=== PATIENT | female | born 1950 | race Caucasian/White ===

== ENCOUNTER 2020-02-21 15:57 | Emergency (ER) | payer MEDICARE, SELFPAY ==
[2020-02-21] VITALS (7 sets, daily range): BP systolic 145–263; BP diastolic 79–111; PULSE 59–83; RESP 16–96; TEMP 37.1; O2SAT 93–98
--- NOTE | ~2020-02-21 | CT_ITS ---
EXAMINATION: CTA chest abdomen pelvis DATE: 02/21/2020 19:04 INDICATION: Severe hypertension today. Back injury yesterday. Aneurysm, dissection. TECHNIQUE: Computed tomography (CT) of the chest, abdomen, and pelvis was performed with 100 cc Omnip aque 350 intravenous contrast. Automated exposure control and iterative reconstruction technique were employed. Exam dose: 1438.52 mGy-cm total exam DLP. COMPARISON: 02/21/2020 portable AP chest FINDINGS: CHEST CT: Normal heart size. There is trace pericardial fluid. No thoracic aortic aneurysm or dissection. No hilar or mediastinal mass lesion or lymphadenopathy. No pulmonary infiltrate or consolidation or pulmonary mass lesion. Small sliding hiatal hernia. ABDOMEN/PELVIS CT: The liver, gallbladder, bile ducts, spleen, pancreas and pancreatic duct as well as adrenal glands ap pear unremarkable. No suspicious renal mass lesion. No urinary tract calculus or hydroureteronephrosis. There is atherosclerotic calcification of the abdominal aorta and iliac arteries but no aneurysm or d issection. No intraperitoneal or retroperitoneal or pelvic mass lesion or adenopathy or ascites. The uterus, adnexal areas and urinary bladder are unremarkable. No bowel obstruction, bowel wall thickening, pneumatosis or intraperitoneal free air. Normal appendix . There is a 12 mm osteosclerotic lesion of T10 vertebral body. There are several osteosclerotic lesion s of the right iliac bone, several small sclerotic lesions in the region of the left acetabulum, a sc lerotic lesion of the right side of the lower sacrum. There are sclerotic lesions of the proximal rig ht femur., A sclerotic left eighth rib lesion. There is a lateral sclerotic right seventh rib lesion. Osteosclerotic metastatic disease cannot be excluded. Recommend clinical correlation and perhaps radi onuclide bone scan as clinically appropriate. Degenerative disc disease at L5-S1. Bilateral hip osteoarthritis. IMPRESSION: No thoracic or abdominal aortic aneurysm or dissection Small sliding hiatal hernia Scattered osseous sclerotic lesions of these may be bone islands; osseous chronic metastatic disease is not excluded. Recommend clinical correlation and perhaps radionuclide bone scan as clinically appr opriate. Reviewed, dictated and finalized at [facility]. Reviewed, dictated and finalized at location A. IMPRESSION: No thoracic or abdominal aortic aneurysm or dissection Small sliding hiatal hernia Scattered osseous sclerotic lesions of these may be bone islands; osseous chron ic metastatic disease is not excluded. Recommend clinical correlation and perha ps radionuclide bone scan as clinically appropriate.
--- NOTE | ~2020-02-21 | XR_ITS ---
XR chest 1V portable DATE: 02/21/2020 17:57 INDICATION: Severe hypertension today. Back injury yesterday. TECHNIQUE: Portable upright AP chest on 02/21/2020 at 1750 hours COMPARISON: 02/26/2018 two-view chest FINDINGS: Normal heart size. No hilar or mediastinal enlargement. No pulmonary infiltrate or consolid ation, pleural effusion or pulmonary vascular congestion or pneumothorax. Diffuse osteopenia. IMPRESSION: No active cardiopulmonary disease Reviewed, dictated and finalized at location [facility].
--- NOTE | 2020-02-21 17:30 | ED.BACK ---
HPI - Back Pain/Injury General Chief Complaint: Back Pain/Injury Stated Complaint: back pain/injury Time Seen by Provider: 02/21/20 17:27 Source: patient Limitations: no limitations History of Present Illness HPI Narrative: 69 years old white female presents with right mid back pain woke up in the middle of the night. Patient reported lifting heavy furniture yesterday noon. Patient had history of hypertension, ran out Acac[employer] 1 month ago. Also history of depression, anxiety and chronic back pain. Patient reports intermittent chest tightness radiating to left upper extremity for the last 3 months. Shortness of breath on exertion for the last 6 months.. Patient is retired, lives alone, does not smoke or drink. Related Data Home Medications Medication Instructions Recorded Confirmed lisinopril-hydrochlorothiazide tablet DAILY 02/21/20 losartan-hydrochlorothiazide 1 tablet PO DAILY 02/21/20 omeprazole magnesium [Prilosec OTC] PO DAILY 02/21/20 Allergies Allergy/AdvReac Type Severity Reaction Status Date / Time prochlorperazine AdvReac Severe Itching Verified 02/21/20 16:27 Review of Systems Review of Systems: Narrative: CONSTITUTIONAL: Denies fever, chills, or sweats. EYES: Denies visual changes, redness, or discharge. ENT: Denies rhinorrhea, congestion, sore throat, or otalgia. CARDIOVASCULAR: Denies chest pain, palpitations, or edema. RESPIRATORY: Denies cough or dyspnea. GASTROINTESTINAL: Denies abdominal pain, nausea, vomiting, or diarrhea. GENITOURINARY: Denies dysuria or hematuria. SKIN: Denies rash or itching. MUSCULOSKELETAL: Denies back pain, joint pain, or myalgia. NEUROLOGIC: Denies headache, numbness, or weakness. PSYCHIATRIC: Denies anxiety or depression. [facility] Family History Family History (Updated 09/23/16 @ 23:56 by DOCTOR UNKNOWN) Mother Hypertension Acute myocardial infarction, Onset Age: 73 Patient's mother is Sibling Acute myocardial infarction, Onset Age: 58 Patient's brother is Father Patient's father is Other Family history of cardiovascular disease Social History Social History Smoking status: Never smoker Second hand tobacco smoke exposure: No Alcohol intake: never Gender identity (if verbalized by the patient): Female Exam Narrative: Exam Narrative: General appearance: Well-developed, well-nourished Skin: Normal color Head: Normocephalic, nontraumatic Eyes: Clear conjunctiva ENT: Oropharynx normal, ears normal, nose normal Neck: Supple, nontender Chest and respiratory: Airway patent, no respiratory distress, no accessory muscle use Heart: Regular rate/rhythm Abdomen: Soft, nontender, no organomegaly, quiet bowel sounds Vascular: Normal peripheral pulses, normal capillary refill. Musculoskeletal: Normal range of motion, mild tenderness right mid back with palpation Neurologic: Alert and oriented ?3, ATMOSPHERIC DRIER TENDER is normal as tested, no gross motor deficit Course Course Emergency Course: Improving Reevaluation(s) Reevaluation #1: Patient feeling much better, denying any back pain or any other symptoms. Blood pressure is 145/82. CT scan of the chest and abdomen showed some bone abnormality which could indicate metastasis of malignancy. Patient was notified, daughter at the bedside, both understood. Patient was advised to follow-up with her family physician as soon as possible for further evaluation. Date: 02/21/20 Time: 20:39 Vital Signs Vital signs: Vital Signs Temperature 37.1 C 02/21/20 16:22 Pulse Rate 83 02/21/20 16:22 Respiratory Rate 16 02/21/20 16:22 Blood Pressure 225/100 H 02/21/20 16:22 Pulse Oxime
[2020-02-21] MEDS: ONDANSETRON INJ 4 MG/2 ML VIAL IV PUSH (17:37)
--- NOTE | 2020-02-21 17:41 | ECG_ITS ---
Measurements Intervals [place] Rate: 67 P: 26 GA: 157 QRS: 2 QRSD: 89 T: 34 QT: 391 QTc: 414 Interpretive Statements SINUS RHYTHM BASELINE ARTIFACT- I, II, III, V4, V6 NORMAL ECG Electronically Signed On 02-22-2020 6:44:20 CDT by Joshua Rivera D.O.
[2020-02-21 18:10] LABS: Basophils Absolute Auto 0.1 K/mm3 (0.0-0.1); Basophils Percent Auto 1.2 % (0.2-1.2); Eosinophils Absolute Auto 0.2 K/mm3 (0-0.3); Eosinophils Percent Auto 2.6 % (0-4.4); Hematocrit 43.4 % (37.0-47.0); Hemoglobin 14.7 g/dL (12.0-15.0); Immature Granulocyte Absolute 0.01 K/mm3 (0.00-0.031); Immature Granulocyte Percent A 0.2 % (0-0.5); Lymphocytes Absolute Auto 1.37 K/mm3 (0.9-3.2); Lymphocytes Percent Auto 23.7 % (18.3-44.2); Mean Corpuscular HGB Conc 33.9 g/dl (32-36); Mean Corpuscular Hemoglobin 30.5 pg (26-34); Mean Platelet Volume 10.7 fl (7.4-10.4); Monocytes Absolute Auto 0.5 K/mm3 (0.1-0.6); Monocytes Percent Auto 8.8 % (2.6-8.5); Neutrophils Absolute Auto 3.7 K/mm3 (1.3-6.7); Neutrophils Percent Auto 63.5 % (45.5-73.1); Platelet Count Result 199 k/mm3 (150-375); Red Blood Count 4.82 M/mm3 (4.2-5.4); Red Cell Distribution Width 13.1 % (11.5-14.5); White Blood Count 5.8 K/mm3 (4.5-10.0)
[2020-02-21] MEDS: NITROGLYCERIN OINTMENT 1 INCH DOSE TRANSDERM (18:11)
[2020-02-21] MEDS: LABETALOL HCL INJ 100 MG/20 ML VIAL 20 MG IV PUSH (18:11)
[2020-02-21 18:19] LABS: INR 1.1; Prothrombin Time 13.8 Seconds (11.1-14.7)
[2020-02-21 18:20] LABS: Partial Thromboplastin Time 30.2 SECONDS (22.3-36.8)
[2020-02-21 18:24] LABS: Alanine Aminotransferase 28 U/L (4-35); Albumin Level 4.1 g/dL (3.5-5.1); Alkaline Phosphatase 160 U/L (38-126); Anion Gap 6 mmol/L (8-16); Aspartate Amino Transferase 27 U/L (14-36); Blood Urea Nitrogen 16 mg/dL (7-17); Calcium 8.8 mg/dL (8.4-10.2); Carbon Dioxide 24 mmol/L (22-30); Chloride 108 mmol/L (98-107); Estimated CRCL calculation 53 ml/min; Estimated Glomerular Filt Rate 55; Glucose 110 mg/dL (65-105); Potassium 3.8 mmol/L (3.4-5.0); Sodium 138 mmol/L (137-145)
[2020-02-21 18:35] LABS: NT Pro B Type Natriuretic Pept 135 PG/ML (5-100); Troponin I < 0.012 ng/mL (0.000-0.034)
[2020-02-21 19:30] LABS: Add Urine Microscopic? YES; Appearance Urine Clear (Clear); Bilirubin Urine Negative (Negative); Blood Urine Negative (Negative); Color Urine Yellow (Yellow); Glucose Urine UA Negative (Negative); Ketones Urine Negative (Negative); Leukocyte Esterase Ur Trace LEU/UL (Negative); Mucus Urine Rare /lpf; Nitrate Urine Negative (Negative); Protein Urine Negative (Negative); RBC Urine 0-2 /hpf (0-2); Squamous Epithelial Cell Urine Moderate /hpf (Few); Urobilinogen Urine Negative mg/dL (<2.0)
[2020-02-21 19:38] LABS: Specific Grav Ur 1.035 (1.001-1.035)
== END 2020-02-21 21:09 | disposition home or self-care (01) ==
PROVIDERS: Emergency Provider Emergency Medicine; PCP Physician Assistant
DX: M54.6 Pain in thoracic spine (principal); I10 Essential (primary) hypertension; Z91.14 Patient's other noncompliance with medication regimen; M89.9 Disorder of bone, unspecified; K44.9 Diaphragmatic hernia without obstruction or gangrene; R06.02 Shortness of breath
CPT/HCPCS: 36415; 71045; 71275; 74174; 80053; 81001; 83880; 84484; 85025; 85610; 85730; 93005; 96374; 96375; 99284; A9270; J1170; J2405; J3360; Q9967

== ENCOUNTER 2020-02-28 08:39 | Outpatient (CLI) | payer MEDICARE, SELFPAY ==
--- NOTE | ~2020-02-28 | NM_ITS ---
EXAMINATION: NM bone scan whole body DATE: 02/28/2020 13:56 INDICATION: Disorder of bone. TECHNIQUE: 24.8 mCi Tc-99m HDP was administered intravenously. Delayed whole-body scintigrams were o btained. COMPARISON: CT chest, abdomen and pelvis dated 02/21/2020 FINDINGS: Typical pattern of scattered likely degenerative joint centered uptake most prominent at the right kn ee, the bilateral acromioclavicular joints, right hip, bilateral hands and feet and at multiple facet joints in the spine with corresponding osteoarthritic changes evident on the prior CT images. Photop enic defect at the left knee consistent with a total knee arthroplasty. No other suspicious foci of a bnormal bone uptake to suggest metastatic disease. Specifically no abnormal uptake associated with a couple of the larger sclerotic bone lesions along the right iliac crest or at the T10 vertebral body. No increased uptake associated with the remaining lesions in the pelvis however assessment is more l imited due to the adjacent activity in the bladder. IMPRESSION: 1. Typical pattern of scattered likely degenerative joint centered uptake with corresponding osteoart hritic changes evident on the prior CT at the location of increased uptake. 2. No lesion suspicious for metastatic disease. Specifically no increased uptake associated with 3 of the larger sclerotic bone lesions at T10 and along the right iliac crest. Reviewed, dictated and finalized at location A. IMPRESSION: 1. Typical pattern of scattered likely degenerative joint centered uptake with corresponding osteoarthritic changes evident on the prior CT at the location of increased uptake. 2. No lesion suspicious for metastatic disease. Specifically no increased uptak e associated with 3 of the larger sclerotic bone lesions at T10 and along the r ight iliac crest.
== END 2020-02-28 08:40 | disposition home or self-care (01) ==
PROVIDERS: PCP Physician Assistant; Visit Provider Internal Medicine
DX: M89.9 Disorder of bone, unspecified (principal)
CPT/HCPCS: 78306; A9561

== ENCOUNTER → 2020-09-14 01:47 | Outpatient (CLI) | payer MEDICARE, SELFPAY ==
[2020-09-14 20:12] LABS: SARS-CoV-2 RNA PCR Negative
== END ==
PROVIDERS: PCP Physician Assistant; Visit Provider Internal Medicine Gastroenterology
DX: Z01.812 Encounter for preprocedural laboratory examination (principal); Z20.822 Contact with and (suspected) exposure to COVID-19
CPT/HCPCS: C9803; U0003; U0005

== ENCOUNTER 2020-09-17 01:58 | Day surgery (SDC) | payer MEDICARE, SELFPAY ==
[2020-09-08 15:34] VITALS: BMI 43.1
--- NOTE | 2020-09-17 09:24 | WPDANESEPPF ---
Anes - Initial Pre Proc Eval Procedure: Operation Date: 09/17/20 11:00 Proposed Procedures p Esophagogastroduodenoscopy - Victoriano Domingo MD Date/Time: 09/17/20 09:24 Surgeon: Victoriano Domingo MD Pre Op Diagnosis: dysphagia Patient Data Age: 69 Gender: F Height: 1.57 m Weight: 107 kg Allergies Allergy/AdvReac Type Severity Reaction Status Date / Time prochlorperazine AdvReac Severe Itching Verified 09/08/20 15:32 Home Medications Medication Instructions Recorded Confirmed Type omeprazole magnesium [Prilosec OTC] 20 mg PO DAILY 02/21/20 09/08/20 History acetaminophen 500 mg tablet 500 mg PO Q6H PRN 03/10/20 09/08/20 History losartan 100 1 tablet PO DAILY #90 tablet 03/10/20 09/08/20 Rx mg-hydrochlorothiazide 25 mg tablet meloxicam 15 mg tablet 15 mg PO DAILY #90 tablet 09/07/20 09/08/20 Rx Patient hx anesthesia problems: none Family hx anesthesia problems: none PMFSH Past Medical History Medical History (Updated 09/17/20 @ 09:26 by Ruddy Patel MD) Anxiety BMI 40.0-44.9, adult Chronic arthritis Hypertension Low back pain Family History Family History Mother Hypertension Acute myocardial infarction, Onset Age: 73 Patient's mother is Sibling Acute myocardial infarction, Onset Age: 58 Patient's brother is Father Patient's father is Other Family history of cardiovascular disease Social History Social History Smoking status: Never smoker Second hand tobacco smoke exposure: No Alcohol intake: never Substance use type: does not use Living arrangements: with family Gender identity (if verbalized by the patient): Female Spiritual care concerns: No Anes - Eval Final PreProcedure Day of Procedure 09/17/20 09:24 Patient weight: obese Heart: regular rate and rhythm Lungs: clear to auscultation and normal air movement Airway: Mallampati scale class II Neurological: alert and oriented Last oral intake: >/= 8 hours ASA classification: III Emergent: no Anesthetic plan: proceed Anesthesia type and monitoring: general GIVS Informed Consent: The patient's anesthetic plan and its attendant risks and benefits were discussed with the patient/family/POA. Questions were solicited and answers provided to the satisfaction of the patient/family/POA.
[2020-09-17 09:39] VITALS: BP 196/84; PULSE 79; RESP 22; TEMP 36.8; O2SAT 98; BMI 43.9
[2020-09-17] MEDS: LACTATED RINGERS 1,000 ML 150 ML IV CONT (09:52)
[2020-09-17 10:08] VITALS: BP 172/74; O2SAT 79
--- NOTE | 2020-09-17 10:36 | PM.HPGS ---
History of Present Illness History of Present Illness Consent: Risks, benefits, and alternatives have been discussed and questions answered. Patient agrees to proceed with procedure. Chief complaint: dysphagia Narrative: Amada Dooley is a 69 year old female Who has had a great deal difficulty swallowing. Pills give her the most difficulty but also meat is hard to get down past her throat. She has had no weight loss Review of Systems Review of Systems: All systems reviewed & are unremarkable except as noted in HPI and below PMFSH Past Medical History Medical History Anxiety BMI 40.0-44.9, adult Chronic arthritis Hypertension Low back pain Family History Family History Mother Hypertension Acute myocardial infarction, Onset Age: 73 Patient's mother is Sibling Acute myocardial infarction, Onset Age: 58 Patient's brother is Father Patient's father is Other Family history of cardiovascular disease Social History Social History Smoking status: Never smoker Second hand tobacco smoke exposure: No Alcohol intake: never Substance use type: does not use Living arrangements: with family Gender identity (if verbalized by the patient): Female Spiritual care concerns: No Meds Home Medications and Allergies Home Medications Medication Instructions Recorded Confirmed Type omeprazole magnesium [Prilosec OTC] 20 mg PO DAILY 02/21/20 09/08/20 History acetaminophen 500 mg tablet 500 mg PO Q6H PRN 03/10/20 09/08/20 History losartan 100 1 tablet PO DAILY #90 tablet 03/10/20 09/08/20 Rx mg-hydrochlorothiazide 25 mg tablet meloxicam 15 mg tablet 15 mg PO DAILY #90 tablet 09/07/20 09/08/20 Rx Allergies Allergy/AdvReac Type Severity Reaction Status Date / Time prochlorperazine AdvReac Severe Itching Verified 09/17/20 09:38 Vital Signs Vital Signs - 24 hr 09/17/20 09:39 09/17/20 10:08 Temperature 36.8 C Pulse Rate 79 Respiratory Rate 22 H Blood Pressure 196/84 H 172/74 H Pulse Oximetry 98 79 L Exam Const: General: alert Orientation/consciousness: patient oriented x3 Resp: Auscultation: clear to auscultation bilaterally Cardio: Rhythm: regular rhythm GI: GI Palp: Yes Soft to palpation and No Tenderness to palpation present (GI) Neuro: General: patient oriented x3 Assessment and Plan Assessment and plan (1) Dysphagia: Code(s): R13.10 - Dysphagia, unspecified Status: Acute Assessment and Plan: EGD with possible biopsy or dilatation or cautery.
[2020-09-17 10:55] VITALS: BP 165/81; PULSE 70; RESP 24; O2SAT 96
[2020-09-17 11:05] VITALS: BP 169/81; PULSE 71; RESP 20; O2SAT 96
[2020-09-17 11:15] VITALS: BP 176/113; PULSE 66; RESP 22; O2SAT 98
[2020-09-17 11:22] VITALS: BP 179/79; PULSE 64; RESP 19; O2SAT 98
== END 2020-09-17 11:39 | disposition home or self-care (01) ==
PROVIDERS: PCP Physician Assistant; Visit Provider Internal Medicine Gastroenterology
PROC: 0DJ08ZZ Inspection of Upper Intestinal Tract, Via Natural or Artificial Opening Endoscopic (ICD-10-PCS; CPT 43235; principal; 2020-09-17 11:00)
DX: K22.2 Esophageal obstruction (principal); K44.9 Diaphragmatic hernia without obstruction or gangrene; K20.90 Esophagitis, unspecified without bleeding; I10 Essential (primary) hypertension; F41.9 Anxiety disorder, unspecified; E66.01 Morbid (severe) obesity due to excess calories; Z68.41 Body mass index [BMI] 40.0-44.9, adult
CPT/HCPCS: 43249; 88305; C1726; C9803; J2704; J7120; U0003; U0005

== ENCOUNTER 2020-12-22 17:27 | Emergency (ER) | payer MEDICARE, SELFPAY ==
--- NOTE | ~2020-12-22 | XR_ITS ---
EXAMINATION: XR chest 2V 12/22/2020 17:59 INDICATION: Midsternal chest pain. Shortness of breath. Hypertension. PROCEDURE: 2 view chest COMPARISON: Comparison to multiple prior studies sequentially, with oldest reviewed study dated 02/14. FINDINGS: The lungs are clear. The cardiomediastinal silhouette is within normal limits. There are no pleural effusions. There is no pneumothorax suspected. IMPRESSION: 1: NO ACUTE CARDIOPULMONARY DISEASE. Reviewed, dictated and finalized at location A.
--- NOTE | 2020-12-22 17:45 | ECG_ITS ---
Measurements Intervals [place] Rate: 72 P: 31 [place]: 149 QRS: 7 QRSD: 90 T: 31 QT: 376 QTc: 414 Interpretive Statements SINUS RHYTHM NORMAL ECG Electronically Signed On 12-23-2020 8:14:55 CDT by Joshua Rivera D.O.
[2020-12-22 17:46] VITALS: BP 157/96; PULSE 87; RESP 16; TEMP 37; O2SAT 98
[2020-12-22 18:41] LABS: Basophils Absolute Auto 0.1 K/mm3 (0.0-0.1); Basophils Percent Auto 0.8 % (0.2-1.2); Eosinophils Absolute Auto 0.2 K/mm3 (0-0.3); Eosinophils Percent Auto 2.1 % (0-4.4); Hemoglobin 13.1 g/dL (12.0-15.0); Immature Granulocyte Absolute 0.01 K/mm3 (0.00-0.031); Immature Granulocyte Percent A 0.1 % (0-0.5); Lymphocytes Absolute Auto 1.55 K/mm3 (0.9-3.2); Mean Corpuscular HGB Conc 33.6 g/dl (32-36); Mean Corpuscular Hemoglobin 30.5 pg (26-34); Mean Corpuscular Volume 90.7 fl (80-100); Monocytes Absolute Auto 0.6 K/mm3 (0.1-0.6); Monocytes Percent Auto 8.1 % (2.6-8.5); Neutrophils Absolute Auto 4.7 K/mm3 (1.3-6.7); Neutrophils Percent Auto 66.9 % (45.5-73.1); Platelet Count Result 221 k/mm3 (150-375); White Blood Count 7.1 K/mm3 (4.5-10.0)
[2020-12-22 18:49] LABS: Anion Gap 8 mmol/L (8-16); Blood Urea Nitrogen 27 mg/dL (7-17); Calcium 9.2 mg/dL (8.4-10.2); Carbon Dioxide 26 mmol/L (22-30); Chloride 107 mmol/L (98-107); Estimated CRCL calculation 40 ml/min; Estimated Glomerular Filt Rate 37; Glucose 101 mg/dL (65-105); Potassium 3.4 mmol/L (3.4-5.0); Sodium 141 mmol/L (137-145)
[2020-12-22 18:51] LABS: INR 1.1; Prothrombin Time 13.8 Seconds (11.1-14.7)
[2020-12-22 18:52] LABS: Partial Thromboplastin Time 30.1 SECONDS (22.3-36.8)
[2020-12-22 19:01] LABS: Troponin I < 0.012 ng/mL (0.000-0.034)
[2020-12-22 21:56] VITALS: BP 199/82; PULSE 87; PULSE 99; RESP 15; TEMP 36.6; O2SAT 100; O2SAT 99
--- NOTE | 2020-12-22 22:40 | ED.GENADULT ---
HPI - General Adult General Chief complaint: Chest Pain Stated complaint: sent by PCP for chest pain that she had this weeke Time Seen by Provider: 12/22/20 22:08 History of Present Illness HPI narrative: Patient 70-year-old female presents emerged from with chief complaint of chest pain. Patient reports has been having discomfort for some time and will decided to call her primary care physician as she has been having more frequent and more continual chest pain. Patient states that the pain has been constant for about a month and has not been improved by anything. Patient reports that she has not had a stress test or cardiac cath reports that her son was just found to have blockage and she is concerned that she may need a cardiac catheterization. Patient reports he talked her primary care physician who recommended that she come to the emergency department to make sure that she had not just had a heart attack and the patient would like to follow-up as an outpatient. Related Data Home Medications Medication Instructions Recorded Confirmed omeprazole magnesium [Prilosec OTC] 20 mg PO DAILY 02/21/20 09/08/20 acetaminophen 500 mg tablet 500 mg PO Q6H PRN 03/10/20 09/08/20 Allergies Allergy/AdvReac Type Severity Reaction Status Date / Time prochlorperazine AdvReac Severe Itching Verified 12/22/20 22:42 Review of Systems Review of Systems: Narrative: A 10 system review of systems was completed on the patient and is negative except for what is stated in the HPI. Nursing and ancillary documentation was reviewed. [facility] Past Medical History Medical History Anxiety BMI 40.0-44.9, adult Chronic arthritis Hypertension Low back pain Family History Family History Mother Hypertension Acute myocardial infarction, Onset Age: 73 Patient's mother is Sibling Acute myocardial infarction, Onset Age: 58 Patient's brother is Father Patient's father is Other Family history of cardiovascular disease Social History Social History Smoking status: Never smoker Second hand tobacco smoke exposure: No Alcohol intake: never Substance use type: does not use Gender identity (if verbalized by the patient): Female Spiritual care concerns: No Exam Narrative: Exam Narrative: GENERAL: Well-appearing, well-nourished, and in no acute distress. HEAD: Normocephalic, atraumatic. EYES: PERRLA and EOMI. ENT: Nares clear, no rhinorrhea or epistaxis. Mucous membranes moist. NECK: Supple. CHEST: Clear to auscultation. No respiratory distress. HEART: Regular rate and rhythm. No murmur heard. Normal peripheral pulses. ABDOMEN: Soft, nontender, nondistended, normal active bowel sounds. EXTREMITIES: Normal range of motion. No edema. SKIN: Warm, dry, no rash. NEURO: No focal deficits. Alert and oriented x3. PSYCH: Normal mood and affect. Course Course Emergency Course: EKG is sinus rhythm rate of [address] elevation or ST depression no change from 02/21/2020 Vital Signs Vital signs: Vital Signs Temperature 37.0 C 12/22/20 17:46 Pulse Rate 87 12/22/20 17:46 Respiratory Rate 16 12/22/20 17:46 Blood Pressure 157/96 H 12/22/20 17:46 Pulse Oximetry 98 12/22/20 17:46 Temperature 36.6 C 12/22/20 21:56 Pulse Rate 99 12/22/20 21:56 Respiratory Rate 15 12/22/20 21:56 Blood Pressure 199/82 H 12/22/20 21:56 Pulse Oximetry 100 12/22/20 21:56 Medical Decision Making Vital Signs Vital Signs: Vital Signs Temperature 37.0 C 12/22/20 17:46 Pulse Rate 87 12/22/20 17:46 Respiratory Rate 16 12/22/20 17:46 Blood Pressure 157/96 H 12/22/20 17:46 Pulse Oximetry 98 12/22/20 17:46 Temperature 36.6 C 12/22/20 21:56 Pulse Rate 99 12/22/20 21
[2020-12-22] MEDS: ASPIRIN 81 MG CHEWABLE TABLET 324 MG PO (22:42)
[2020-12-22 22:52] LABS: NT Pro B Type Natriuretic Pept 67 pg/mL (5-100)
[2020-12-22 22:55] LABS: Troponin I < 0.012 ng/mL (0.000-0.034)
[2020-12-23 00:07] VITALS: BP 178/77; PULSE 71; RESP 18; O2SAT 98
== END 2020-12-23 00:10 | disposition home or self-care (01) ==
PROVIDERS: Emergency Medicine; Emergency Provider Emergency Medicine; PCP Physician Assistant
DX: R07.9 Chest pain, unspecified (principal); I10 Essential (primary) hypertension; M19.90 Unspecified osteoarthritis, unspecified site
CPT/HCPCS: 36415; 71046; 80048; 83880; 84484; 85025; 85610; 85730; 93005; 99284; A9270

== ENCOUNTER 2021-01-06 09:48 | Outpatient (CLI) | payer MEDICARE, SELFPAY ==
--- NOTE | ~2021-01-06 | NM_ITS ---
EXAMINATION: NM lou stress w perfusion DATE: 01/06/2021 12:57 INDICATION: Unspecified chest pain TECHNIQUE: Rest images were obtained following intravenous administration of 9 mCi Tc99m tetrofosmin (Myoview). The patient was infused intravenously with Lexiscan (Regadenoson). Then, 27 mCi Tc99m tetr ofosmin (Myoview) was administered intravenously, and stress images were obtained. Data was reconstru cted into short axis and horizontal and vertical long axis SPECT images. Gated SPECT images were also obtained. COMPARISON: None. FINDINGS: There is no definite reversible or fixed perfusion abnormality to suggest ischemia or infar ction. There is normal left ventricular chamber size, wall motion and ejection fraction. Left ventr icular ejection fraction measures >70%. IMPRESSION: 1. Normal myocardial perfusion at rest and during stress. 2. Left ventricular ejection fraction measuring >70%. Reviewed, dictated and finalized at location A.
--- NOTE | 2021-01-06 10:30 | EST_ITS ---
Patient Info Name: Amada Dooley Age: 70 years : 1950 Gender: Female Ht: 65 in Wt: 236 lbs BSA: 2.27 m2 HR: 67 bpm BP: 157 / 84 mmHg Heart Rhythm: Sinus Rhythm Exam Date: 01/06/2021 11:25 AM Exam Location: [facility] Stress Patient Status: Outpatient Admit Date: 01/06/2021 Staff Ordering Physician: Madhu Perez PA-C Attending Provider: Madhu Perez PA-C Exercise Technologist: Tiffany Rodriguez CT Exercise Physician: Joshua Rivera DO Exam Type: CA stress lou w NM Study Info A regadenoson stress test was performed. Summary 1. 1. Negative lexiscan stress test for ischemic ST changes by ECG criteria. 2. 2. Baseline hypertension. 3. 3. Nuclear scan to follow and will be reported separately. Please correlate with it. 4. 4. Patient informed of the above results. Protocol: Lexiscan Stress ECG Details Stage: REST Duration (min): 2 min : 14 sec HR (bpm): 71 SBP (mmHg): 157 DBP (mmHg): 84 Stage: REST Duration (min): 21 min : 56 sec HR (bpm): 83 SBP (mmHg): 157 DBP (mmHg): 84 Stage: STAGE 1 Duration (min): 1 min : 0 sec HR (bpm): 97 SBP (mmHg): 157 DBP (mmHg): 84 Stage: RECOVERY Duration (min): 1 min : 0 sec HR (bpm): 104 SBP (mmHg): 190 DBP (mmHg): 72 Stage: RECOVERY Duration (min): 2 min : 0 sec HR (bpm): 92 SBP (mmHg): 181 DBP (mmHg): 74 Stage: RECOVERY Duration (min): 2 min : 14 sec HR (bpm): 97 SBP (mmHg): 181 DBP (mmHg): 74 Rest HR: 83 bpm Peak HR: 104 bpm Rest Sys BP: 157 mmHg Peak Sys BP: 190 mmHg Max Pred HR: 150 bpm % Max Pred HR: 69 % Target HR: 128 bpm Max RPP: 19,760 bpm*mmHg Termination Reason: Completed protocol Cardiac Symptoms: Shortness of breath Total Time: 1 min : 0 sec Rest Gaines BP: 84 mmHg Peak Gaines BP: 72 mmHg Total Dose: 0.4 mg Resting ECG Sinus rhythm. Stress ECG No ST changes. Arrhythmias None. Report Signatures
== END 2021-01-06 09:49 | disposition home or self-care (01) ==
PROVIDERS: PCP Physician Assistant; Visit Provider Physician Assistant
DX: R07.9 Chest pain, unspecified (principal); I10 Essential (primary) hypertension
CPT/HCPCS: 78452; 93017; A9502; J2785

== ENCOUNTER 2021-03-02 10:01 | Outpatient (CLI) | payer MEDICARE, SELFPAY ==
[2021-03-02 11:14] LABS: Hematocrit 40.3 % (37.0-47.0); Hemoglobin 13.4 g/dL (12.0-15.0); Mean Corpuscular HGB Conc 33.3 g/dl (32-36); Mean Corpuscular Hemoglobin 30.9 pg (26-34); Mean Corpuscular Volume 92.9 fl (80-100); Mean Platelet Volume 10.2 fl (7.4-10.4); Platelet Count Result 219 k/mm3 (150-375); Red Blood Count 4.34 M/mm3 (4.2-5.4); Red Cell Distribution Width 13.2 % (11.5-14.5); White Blood Count 6.2 K/mm3 (4.5-10.0)
[2021-03-02 11:30] LABS: Alanine Aminotransferase 21 U/L (4-35); Albumin Level 4.2 g/dL (3.5-5.1); Alkaline Phosphatase 123 U/L (38-126); Anion Gap 11 mmol/L (8-16); Aspartate Amino Transferase 23 U/L (14-36); Bilirubin,Total 0.8 mg/dL (0.2-1.3); Blood Urea Nitrogen 24 mg/dL (7-17); Calcium 9.3 mg/dL (8.4-10.2); Carbon Dioxide 27 mmol/L (22-30); Chloride 104 mmol/L (98-107); Cholesterol 232 mg/dL (0-200); Estimated Glomerular Filt Rate 30; Glucose 134 mg/dL (65-110); HDL Direct 29 mg/dL; Potassium 3.5 mmol/L (3.4-5.0); Sodium 142 mmol/L (137-145); Triglycerides 163 mg/dL (<150)
[2021-03-02 11:42] LABS: LDL Cholesterol Direct 143 mg/dL
[2021-03-02 12:29] LABS: Hepatitis C Virus Antibody Negative (Negative)
[2021-03-02 12:38] LABS: Folic Acid 19.4 ng/mL (2.76->20)
== END 2021-03-02 10:02 | disposition home or self-care (01) ==
PROVIDERS: PCP Physician Assistant; Visit Provider Internal Medicine
DX: Z11.59 Encounter for screening for other viral diseases (principal); R53.83 Other fatigue; I10 Essential (primary) hypertension
CPT/HCPCS: 36415; 80053; 80061; 82607; 82746; 84443; 85027; 86803

== ENCOUNTER 2021-05-26 05:17 | Emergency (ER) | payer MEDICARE, SELFPAY ==
[2021-05-26] VITALS (15 sets, daily range): BP systolic 158–169; BP diastolic 70–87; PULSE 61–86; RESP 14–31; TEMP 36.4; O2SAT 96–100
--- NOTE | ~2021-05-26 | XR_ITS ---
EXAMINATION: XR chest 2V DATE: 05/26/2021 05:58 INDICATION: Chest pain. TECHNIQUE: Frontal and lateral views of the chest were obtained. COMPARISON: Chest 2 views 12/22/2020, chest CT 02/21/2020 FINDINGS: There is mild atelectasis in left lower lung zone. No pleural effusion or pneumothorax. The heart size is normal. There is a moderate-sized hiatal hernia. There is a benign bone island in T10 vertebral body. IMPRESSION: 1. Mild atelectasis in left lower lung zone. 2. Moderate-sized hiatal hernia. Reviewed, dictated and finalized at location A. [facility]
--- NOTE | 2021-05-26 05:24 | ECG_ITS ---
Measurements Intervals [place] Rate: 84 P: 54 MN: 157 QRS: 8 QRSD: 85 T: 39 QT: 350 QTc: 414 Interpretive Statements SINUS RHYTHM POSSIBLE LEFT ATRIAL ENLARGEMENT CANNOT RULE OUT SEPTAL INFARCT, AGE INDETERMINATE BASELINE ARTIFACT- I, II, III, AVR, AVF, V4-V6 ABNORMAL ECG Electronically Signed On 05-26-2021 6:50:10 CONFLICTS ANALYST by Joshua Rivera D.O.
--- NOTE | 2021-05-26 05:24 | ED.CHESTPAIN ---
HPI - Chest Pain General Chief Complaint: Chest Pain <Abigail Horne MD - Last Filed: 05/26/21 07:22> Stated Complaint: CP <Abigail Horne MD - Last Filed: 05/26/21 07:22> Time Seen by Provider: 05/26/21 05:24 <Abigail Horne MD - Last Filed: 05/26/21 07:22> Source: patient <Abigail Horne MD - Last Filed: 05/26/21 07:22> Mode of arrival: ambulatory <Abigail Horne MD - Last Filed: 05/26/21 07:22> Limitations: no limitations <Abigail Horne MD - Last Filed: 05/26/21 07:22> History of Present Illness HPI narrative: Patient presenting for evaluation of chest pain. Patient awakened at 3 am with left sided chest pain and tightness radiating into left arm. Patient states she lays on her left side and thought maybe it was muscle spasm at first.Patient without dyspnea. She does report history of anxiety states this is not consistent with her anxiety. Patient denies any nausea, vomiting, diaphoresis. No ripping or tearing sensation to the flanks. Patient reports some mild shortness of breath which is resolved at the time of assessment. Patient states that she did feel slightly panicked at the time the chest pain started, as she has not had a panic attack since she last worked at [employer]. Patient denies any fever, cough, or chills No leg swelling or calf pain. No recent Covid infection. No long car or air travel. No history of coagulopathy. Patient states she had a stress test 2 months ago which was normal. <Abigail Horne MD - Last Filed: 05/26/21 07:22> Related Data Home Medications: Home Medications Medication Instructions Recorded Confirmed acetaminophen 500 mg tablet 500 mg PO Q6H PRN 03/10/20 03/24/21 multivitamin with minerals 1 tablet PO DAILY 12/25/20 03/24/21 <Abigail Horne MD - Last Filed: 05/26/21 07:22> Allergies/Adverse Reactions: Allergies Allergy/AdvReac Type Severity Reaction Status Date / Time prochlorperazine AdvReac Severe Itching Verified 03/23/21 13:36 <Abigail Horne MD - Last Filed: 05/26/21 07:22> Review of Systems Review of Systems: CONSTITUTIONAL: Denies fever, chills, or sweats. EYES: Denies visual changes, redness, or discharge. ENT: Denies rhinorrhea, congestion, sore throat, or otalgia. CARDIOVASCULAR: Reports current chest pain in room, denies palpitations RESPIRATORY: Denies cough or current dyspnea. GASTROINTESTINAL: Denies abdominal pain, nausea, vomiting, or diarrhea. GENITOURINARY: Denies dysuria or hematuria. SKIN: Denies rash or itching. MUSCULOSKELETAL: Denies back pain, joint pain, or myalgia. NEUROLOGIC: Denies headache, numbness, or weakness. <Abigail Horne MD - Last Filed: 05/26/21 07:22> FOR[facility]LY [facility], [facility] Past Medical History Medical History: Medical History Anxiety BMI 40.0-44.9, adult Chronic arthritis History of blood transfusion Hypertension Low back pain <Abigail Horne MD - Last Filed: 05/26/21 07:22> Surgical History Surgical History: Surgical History S/P knee replacement <Abigail Horne MD - Last Filed: 05/26/21 07:22> Family History Family History: Family History Mother Hypertension Acute myocardial infarction, Onset Age: 73 Patient's mother is Sibling Acute myocardial infarction, Onset Age: 58 Patient's brother is Father Patient's father is Other Family history of cardiovascular disease <Abigail Horne MD - Last Filed: 05/26/21 07:22> Social History Social History: Social History Smoking status: Never smoker Second hand tobacco smoke exposure: No Alcohol intake: current Substance use type: does not use Gender identity (if verbalized by the bonilla
[2021-05-26 05:42] LABS: Basophils Percent Auto 0.6 % (0.2-1.2); Eosinophils Absolute Auto 0.1 K/mm3 (0-0.3); Eosinophils Percent Auto 1.8 % (0-4.4); Hematocrit 39.3 % (37.0-47.0); Hemoglobin 13.2 g/dL (12.0-15.0); Immature Granulocyte Absolute 0.02 K/mm3 (0.00-0.031); Immature Granulocyte Percent A 0.3 % (0-0.5); Lymphocytes Percent Auto 27.8 % (18.3-44.2); Mean Corpuscular HGB Conc 33.6 g/dl (32-36); Mean Corpuscular Hemoglobin 30.1 pg (26-34); Mean Corpuscular Volume 89.7 fl (80-100); Mean Platelet Volume 10.2 fl (7.4-10.4); Monocytes Absolute Auto 0.5 K/mm3 (0.1-0.6); Monocytes Percent Auto 7.4 % (2.6-8.5); Neutrophils Absolute Auto 4.5 K/mm3 (1.3-6.7); Neutrophils Percent Auto 62.1 % (45.5-73.1); Platelet Count Result 239 k/mm3 (150-375); Red Blood Count 4.38 M/mm3 (4.2-5.4); White Blood Count 7.2 K/mm3 (4.5-10.0)
[2021-05-26 05:51] LABS: Prothrombin Time 13.1 Seconds (11.1-14.7)
[2021-05-26 05:52] LABS: Partial Thromboplastin Time 29.6 SECONDS (22.3-36.8)
[2021-05-26 05:54] LABS: Alanine Aminotransferase 19 U/L (4-35); Albumin Level 4.1 g/dL (3.5-5.1); Alkaline Phosphatase 130 U/L (38-126); Anion Gap 8 mmol/L (8-16); Aspartate Amino Transferase 21 U/L (14-36); Bilirubin,Total 0.6 mg/dL (0.2-1.3); Blood Urea Nitrogen 18 mg/dL (7-17); Calcium 9.1 mg/dL (8.4-10.2); Carbon Dioxide 27 mmol/L (22-30); Chloride 104 mmol/L (98-107); Estimated CRCL calculation 40 ml/min; Estimated Glomerular Filt Rate 37; Glucose 132 mg/dL (65-110); Lipase 93 U/L (23-300); Potassium 3.1 mmol/L (3.4-5.0); Sodium 139 mmol/L (137-145)
[2021-05-26 06:05] LABS: Troponin I < 0.012 ng/mL (0.000-0.034)
--- NOTE | 2021-05-26 07:26 | PC.NURSE ---
Pt states that she is no longer feeling chest pain and she feels much better
[2021-05-26] MEDS: POTASSIUM CHLORIDE 20 MEQ PACKET (FOR LIQUID) 40 MEQ PO (07:40)
[2021-05-26 08:53] LABS: Troponin I 0.016 ng/mL (0.000-0.034)
== END 2021-05-26 09:16 | disposition home or self-care (01) ==
PROVIDERS: Emergency Medicine; Emergency Provider Emergency Medicine; PCP Physician Assistant
DX: R07.89 Other chest pain (principal); I10 Essential (primary) hypertension
CPT/HCPCS: 36415; 71046; 80053; 83690; 84484; 85025; 85610; 85730; 93005; 99284; A9270

== ENCOUNTER 2021-09-15 14:40 | Outpatient (CLI) | payer OTHER, SELFPAY ==
[2021-09-15 15:11] LABS: Alanine Aminotransferase 17 U/L (4-35); Albumin Level 4.4 g/dL (3.5-5.1); Alkaline Phosphatase 153 U/L (38-126); Anion Gap 9 mmol/L (8-16); Aspartate Amino Transferase 26 U/L (14-36); Blood Urea Nitrogen 25 mg/dL (7-17); Calcium 9.2 mg/dL (8.4-10.2); Carbon Dioxide 27 mmol/L (22-30); Chloride 102 mmol/L (98-107); Estimated Glomerular Filt Rate 34; Glucose 127 mg/dL (65-110); Potassium 3.5 mmol/L (3.4-5.0); Sodium 138 mmol/L (137-145)
[2021-09-15 15:34] LABS: Erythrocyte Sedimentation Rate 52 mm/hr (0-20)
[2021-09-15 15:42] LABS: Rheumatoid Factor < 8.6 IU/ML (<12)
== END 2021-09-15 14:41 | disposition home or self-care (01) ==
LOC: ANHLAB 14:42
PROVIDERS: PCP Physician Assistant; Visit Provider Physician Assistant
DX: M25.50 Pain in unspecified joint (principal); E87.6 Hypokalemia
CPT/HCPCS: 36415; 80053; 85652; 86038; 86430

== ENCOUNTER 2021-10-10 17:55 | Emergency (ER) | payer OTHER, SELFPAY ==
[2021-10-10 18:17] VITALS: BP 188/85; PULSE 79; RESP 18; O2SAT 97
--- NOTE | 2021-10-10 19:37 | ED.EXTPRO ---
HPI - Extremity Problem General Chief complaint: Extremity Problem,Nontraumatic Stated complaint: swelling to left foot and ankle Time Seen by Provider: 10/10/21 18:57 Source: patient Mode of arrival: ambulatory Limitations: no limitations History of Present Illness HPI Narrative: Patient complaining of pedal edema left greater than the right started a week ago. Patient states that she did not want, but her kids made her come. Patient denies any calf pain or swelling, lower extremity redness, fever or chills. Patient denies any chest pain or shortness of breath. Patient states that she has a history of pedal edema but sometimes is worse than usual. Related Data Home Medications Medication Instructions Recorded Confirmed acetaminophen 500 mg tablet 500 mg PO Q6H PRN 03/10/20 09/16/21 multivitamin with minerals 1 tablet PO DAILY 12/25/20 09/16/21 Allergies Allergy/AdvReac Type Severity Reaction Status Date / Time prochlorperazine AdvReac Severe Itching Verified 09/15/21 13:55 Review of Systems Review of Systems: Per HPI All systems reviewed & are unremarkable except as noted in HPI and below PMFSH Past Medical History Medical History Anxiety BMI 40.0-44.9, adult Chronic arthritis History of blood transfusion Hypertension Low back pain Surgical History Surgical History S/P knee replacement Family History Family History Mother Hypertension Acute myocardial infarction, Onset Age: 73 Patient's mother is Sibling Acute myocardial infarction, Onset Age: 58 Patient's brother is Father Patient's father is Other Family history of cardiovascular disease Social History Social History Smoking status: Never smoker Second hand tobacco smoke exposure: No Alcohol intake: current Substance use type: does not use Gender identity (if verbalized by the patient): Female Spiritual care concerns: No Exam Const: General: no acute distress and alert Nutritional Appearance: obese Orientation/consciousness: patient oriented x3 HENMT: Head: normal to inspection Eyes: Conjunctivae: conjunctivae normal Neck: Neck: normal visual inspection Resp: Effort & Inspection: normal respiratory effort Skin: General skin exam: normal color Extrem: General: edema bilateral Other: Negative for Homans' sign, no calf tenderness Course Vital Signs Vital signs: Vital Signs Pulse Rate 79 10/10/21 18:17 Respiratory Rate 18 10/10/21 18:17 Blood Pressure 188/85 H 10/10/21 18:17 Pulse Oximetry 97 10/10/21 18:17 Pulse Rate 79 10/10/21 18:17 Respiratory Rate 18 10/10/21 18:17 Blood Pressure 188/85 H 10/10/21 18:17 Pulse Oximetry 97 10/10/21 18:17 Discharge Plan Discharge Clinical Impression: Pedal edema Patient Disposition: Home, Self-Care Condition: Stable Instructions: Edema (ED) Prescriptions: No Action acetaminophen [Tylenol Extra Strength] 500 mg tablet 500 mg PO Q6H PRN (Reason: Pain) RF: 0 multivitamin with minerals [Hair,Skin and Nails] Tablet 1 tablet PO DAILY RF: 0 methylprednisolone [Medrol (Fritz)] 4 mg tablets,dose pack See Rx Instructions PO PER PKG DIR Qty: 21 RF: 0 triamcinolone acetonide 0.1 % cream 1 applic topical BID PRN (Reason: itching) Qty: 15 RF: 0 gabapentin [Neurontin] 300 mg capsule 300 mg PO TID Qty: 30 RF: 0 losartan-hydrochlorothiazide 100-25 mg tablet 1 tablet PO DAILY Qty: 90 RF: 3 pantoprazole 40 mg tablet,delayed release (DR/EC) 40 mg PO QAM Qty: 90 RF: 1 diclofenac sodium 75 mg tablet,delayed release (DR/EC) 75 mg PO BID PRN (Reason: pain) Qty: 180 RF: 0 Follow-up/Referrals: Madhu Perez, [facility]
== END 2021-10-10 20:09 | disposition home or self-care (01) ==
PROVIDERS: Emergency Provider Emergency Medicine; PCP Physician Assistant
DX: R60.0 Localized edema (principal); M19.90 Unspecified osteoarthritis, unspecified site; I10 Essential (primary) hypertension; Z96.659 Presence of unspecified artificial knee joint
CPT/HCPCS: 99281

== ENCOUNTER 2021-10-28 12:23 | Outpatient (CLI) | payer OTHER, SELFPAY ==
--- NOTE | ~2021-10-28 | XR_ITS ---
XR knee RT 3V DATE: 10/28/2021 12:59 INDICATION: Right knee pain TECHNIQUE: AP, lateral, sunrise views COMPARISON: None FINDINGS: There is prominent periarticular spurring at the patellofemoral compartment. There is promi nent loss of medial compartment joint space height. There is hypertrophic change of the tibial spines . Osteopenia. No fracture or dislocation or joint effusion. No radiopaque intra-articular loose body or chondrocalcinosis is noted. No periosteal reaction or bone destruction. IMPRESSION: Osteoarthritis involving particularly the medial and patellofemoral compartments Reviewed, dictated and finalized at location B.
--- NOTE | ~2021-10-28 | XR_ITS ---
XR hip RT min 3V w AP pelvis DATE: 10/28/2021 12:59 INDICATION: Right hip pain TECHNIQUE: AP pelvis. AP, lateral crosstable lateral views of right hip COMPARISON: None FINDINGS: Diffuse osteopenia. Degenerative disc disease at L4-5 and L5-S1 in particular. No pelvic fracture or bone destruction is detected. The pubic symphysis and sacroiliac joints are normally aligned. There is asymmetric mildly prominent right hip joint space narrowing and spurring compatible with mod erately prominent right hip osteoarthritis. No fracture or dislocation, avascular necrosis or bone destruction of the right hip. IMPRESSION: Moderately prominent right hip osteoarthritis Reviewed, dictated and finalized at location B.
[2021-10-28 13:37] LABS: Anion Gap 7 mmol/L (8-16); Blood Urea Nitrogen 23 mg/dL (7-17); Calcium 8.6 mg/dL (8.4-10.2); Carbon Dioxide 28 mmol/L (22-30); Chloride 104 mmol/L (98-107); Estimated Glomerular Filt Rate 34; Glucose 131 mg/dL (65-110); Potassium 3.6 mmol/L (3.4-5.0); Sodium 139 mmol/L (137-145)
== END 2021-10-28 12:24 | disposition home or self-care (01) ==
LOC: ANHIMG 12:29
PROVIDERS: PCP Physician Assistant; Visit Provider Physician Assistant
DX: E87.6 Hypokalemia (principal); M17.11 Unilateral primary osteoarthritis, right knee; M16.11 Unilateral primary osteoarthritis, right hip
CPT/HCPCS: 36415; 73502; 73562; 80048

== ENCOUNTER 2022-02-04 11:23 | Emergency (ER) | payer OTHER, SELFPAY ==
--- NOTE | ~2022-02-04 | US_ITS ---
EXAMINATION: US pelvic complete w TV DATE: 02/04/2022 13:03 INDICATION: Vaginal bleeding Comparison:No prior studies for comparison. TECHNIQUE: Multiple transabdominal and endovaginal sonographic images of the pelvis performed. FINDINGS: The uterus measures 9.2 x 4.3 x 4.3 cm. The endometrial complex measures 2.1 cm. There is m oderate complex fluid in the endometrium, possibly hemorrhage. The ovaries are not visualized. There is no free fluid in the pelvis. There are no abnormal masses seen on either side. IMPRESSION: 1. Thickened endomtrial complex containing moderate complex fluid. The differential diagnosis include s endometrial hyperplasia, polyp and carcinoma. Biopsy is recommended. Reviewed, dictated and finalized at location B. IMPRESSION: 1. Thickened endomtrial complex containing moderate complex fluid. The differen tial diagnosis includes endometrial hyperplasia, polyp and carcinoma. Biopsy is recommended.
[2022-02-04 10:50] VITALS: BP 149/83; PULSE 87; RESP 16; TEMP 36.9; O2SAT 98
[2022-02-04 11:19] LABS: Basophils Absolute Auto 0.1 K/mm3 (0.0-0.1); Basophils Percent Auto 0.9 % (0.2-1.2); Eosinophils Absolute Auto 0.1 K/mm3 (0-0.3); Eosinophils Percent Auto 2.1 % (0-4.4); Hematocrit 39.6 % (37.0-47.0); Hemoglobin 13.1 g/dL (12.0-15.0); Immature Granulocyte Absolute 0.01 K/mm3 (0.00-0.031); Immature Granulocyte Percent A 0.2 % (0-0.5); Lymphocytes Absolute Auto 1.23 K/mm3 (0.9-3.2); Lymphocytes Percent Auto 21.3 % (18.3-44.2); Mean Corpuscular HGB Conc 33.1 g/dl (32-36); Mean Corpuscular Hemoglobin 30.2 pg (26-34); Mean Corpuscular Volume 91.2 fl (80-100); Mean Platelet Volume 10.1 fl (7.4-10.4); Monocytes Absolute Auto 0.4 K/mm3 (0.1-0.6); Monocytes Percent Auto 6.2 % (2.6-8.5); Neutrophils Percent Auto 69.3 % (45.5-73.1); Platelet Count Result 226 k/mm3 (150-375); Red Blood Count 4.34 M/mm3 (4.2-5.4); Red Cell Distribution Width 13.5 % (11.5-14.5); White Blood Count 5.8 K/mm3 (4.5-10.0)
--- NOTE | 2022-02-04 12:14 | ED.GENADULT ---
HPI - General Adult General Chief complaint: Vaginal Bleeding Stated complaint: vaginal bleeding Time Seen by Provider: 02/04/22 11:55 History of Present Illness HPI narrative: 71-year-old female presenting to the emergency department for evaluation of abdominal cramping and vaginal bleeding. Patient states that approximately 9 this morning she noticed that she was having some vaginal bleeding. Related Data Home Medications Medication Instructions Recorded Confirmed acetaminophen 500 mg tablet 500 mg PO Q6H PRN Pain 03/10/20 12/28/21 (Tylenol Extra Strength) multivitamin with minerals 1 tablet PO DAILY 12/25/20 10/31/21 (Hair,Skin and Nails tablet) Allergies Allergy/AdvReac Type Severity Reaction Status Date / Time prochlorperazine AdvReac Severe Itching Verified 02/04/22 10:48 Review of Systems Review of Systems: CONSTITUTIONAL: Denies fever, chills, or sweats. EYES: Denies visual changes, redness, or discharge. ENT: Denies rhinorrhea, congestion, sore throat, or otalgia. CARDIOVASCULAR: Denies chest pain, palpitations, or edema. RESPIRATORY: Denies cough or dyspnea. GASTROINTESTINAL: Vaginal bleeding abdominal cramping GENITOURINARY: Denies dysuria or hematuria. SKIN: Denies rash or itching. MUSCULOSKELETAL: Denies back pain, joint pain, or myalgia. NEUROLOGIC: Denies headache, numbness, or weakness. FORMERLY [facility], [facility] Past Medical History Medical History Anxiety BMI 40.0-44.9, adult Chronic arthritis Colon cancer History of blood transfusion History of postoperative nausea History of stress test (~2021) Hypertension Low back pain Surgical History Surgical History History of removal of cyst S/P knee replacement (~2014) Family History Family History Mother Hypertension Acute myocardial infarction, Onset Age: 73 Patient's mother is Sibling Acute myocardial infarction, Onset Age: 58 Patient's brother is Father Patient's father is Other Family history of cardiovascular disease Social History Social History (Reviewed 12/28/21 @ 14:39 by FLAQUITA Ibanez Smoking status: Never smoker Second hand tobacco smoke exposure: No Alcohol intake: never Substance use type: does not use Gender identity (if verbalized by the patient): Female Spiritual care concerns: No Exam Narrative: APPEARANCE: Well appearing, no pain, no distress, well-nourished. HEAD: normocephalic, atraumatic. EYES: PERRLA/EOMI, conjunctivae clear. NOSE: Normal no drainage NECK: Supple. No adenopathy, no masses. RESPIRATORY: Airway patent, respirations nonlabored. Clear to auscultation bilaterally, no rales, rhonchi, wheezing. CARDIOVASCULAR: Regular rate and rhythm without murmurs rubs or gallops. ABDOMINAL: Soft, nontender, nondistended, normal bowel sounds. No vaginal bleeding on pelvic exam. MUSCULOSKELETAL: Moves all extremities. Strength/ROM intact, No edema, No calf tenderness. NEURO: Alert. Cranial nerves II through XII intact. Grossly intact SKIN: Warm, dry. Normal Color Course Course Emergency Course: On exam patient had no vaginal bleeding. Ultrasound did show endometrial thickening. Case was discussed with Dr. Martin, and patient will have follow-up with [facility] SPECIALIST. Patient was updated on the results of the work-up and consultation with BUSINESS ANALYSIS SPECIALIST. Patient was comfortable with the plan for discharge and follow-up Vital Signs Vital signs: Vital Signs Temperature 98.4 F 02/04/22 10:50 Pulse Rate 87 02/04/22 10:50 Respiratory Rate 16 02/04/22 10:50 Blood Pressure 149/83 H 02/04/22 10:50 Pulse Oximetry 98 02/04/22 10:50 Oxygen Delivery Room Air 02/04/22 10:50 Temperature 98.4 F 02/04/22 10:50 Pulse Rate 87 02/04/22 10:50 Respiratory Rate
--- NOTE | 2022-02-04 13:39 | PC.NURSE ---
Patient able to ambulate to the restroom with her cane without difficulty.
[2022-02-04 13:41] LABS: INR 1.1; Prothrombin Time 13.5 Seconds (11.1-14.7)
[2022-02-04 13:45] LABS: Alanine Aminotransferase 28 U/L (6-35); Albumin Level 4.2 g/dL (3.5-5.1); Alkaline Phosphatase 165 U/L (38-126); Anion Gap 10 mmol/L (8-16); Aspartate Amino Transferase 23 U/L (14-36); Bilirubin,Total 0.7 mg/dL (0.2-1.3); Blood Urea Nitrogen 22 mg/dL (7-17); Calcium 9.2 mg/dL (8.4-10.2); Carbon Dioxide 27 mmol/L (22-30); Chloride 101 mmol/L (98-107); Estimated CRCL calculation 38 ml/min; Estimated Glomerular Filt Rate 34; Glucose 136 mg/dL (65-110); Potassium 3.6 mmol/L (3.4-5.0); Sodium 138 mmol/L (137-145)
== END 2022-02-04 14:58 | disposition home or self-care (01) ==
PROVIDERS: Emergency Medicine; Emergency Provider Emergency Medicine; PCP Physician Assistant
DX: N93.9 Abnormal uterine and vaginal bleeding, unspecified (principal); I10 Essential (primary) hypertension; M19.90 Unspecified osteoarthritis, unspecified site; Z85.038 Personal history of other malignant neoplasm of large intestine; Z96.659 Presence of unspecified artificial knee joint; R93.89 Abnormal findings on diagnostic imaging of other specified body structures
CPT/HCPCS: 36415; 76830; 76856; 80053; 85025; 85610; 99284

== ENCOUNTER 2022-04-04 12:40 | Outpatient (CLI) | payer OTHER, SELFPAY ==
[2022-04-04 13:30] LABS: Anion Gap 8 mmol/L (8-16); Blood Urea Nitrogen 23 mg/dL (7-17); Calcium 8.9 mg/dL (8.4-10.2); Carbon Dioxide 27 mmol/L (22-30); Chloride 104 mmol/L (98-107); Estimated Glomerular Filt Rate 32; Glucose 142 mg/dL (65-110); Potassium 3.9 mmol/L (3.4-5.0); Sodium 139 mmol/L (137-145)
== END 2022-04-04 12:41 | disposition home or self-care (01) ==
LOC: ANHSURGERY 12:47
PROVIDERS: Anesthesiology; PCP Physician Assistant; Visit Provider Student in an Organized Health Care Education/Training Program
DX: Z01.818 Encounter for other preprocedural examination (principal); Z79.899 Other long term (current) drug therapy
CPT/HCPCS: 36415; 80048

== ENCOUNTER 2022-04-08 00:09 | Day surgery (SDC) | payer OTHER, SELFPAY ==
[2022-03-28 13:44] VITALS: BMI 38.3
--- NOTE | 2022-03-28 13:56 | PC.NURSE ---
PRE-OP INSTRUCTIONS, PLEASE READ CAREFULLY Report to the Outpatient Waiting Room, entrance under the green pavilion located off [facility], at time _1030_ on date _04/08/22_. OR Time: _1230_. Time changes happen often and if your time is changed the preop area will call you the afternoon before. - You and your visitor will be asked to self-screen and do not enter if you have any COVID symptoms. - We encourage only one visitor and NO visitors under age 16 are allowed at this time. Your visitor will receive communication by the phone number that is given day of service. - The patient visitor is requested to social distance or may leave the building when not with patient due to restrictions. - A mask is required within the hospital. Patients may have clear liquids (water, carbonated beverages, clear teas, apple juice) until 3 hours prior to surgery (0915 AM) with a maximum of 20 ounces. - No food from midnight until time of surgery Take the following medications with a SIP of water the morning of surgery: _TYLENOL IF NEEDED_ Medications to discontinue _DICLOFENAC PER DR. GASPAR'S INSTRUCTIONS_ Date to take last dose Please no make-up, nail albanian, hairspray, perfume, deodorant, or body powder the day of surgery. No jewelry (including any body piercings) or valuables the day of surgery, leave them at home. Please take a shower or bath the night before, or the morning of, surgery with an antibacterial soap. Wear comfortable, loose fitting clothing. - Jewelry must be removed prior to entering the operating room. Rings and piercings that are not removed may be cut off. - The hospital will not accept responsibility for valuables. - Please leave all valuables, including medications, at home the day of surgery. If you are going home after surgery, a licensed port cdl a driver must drive you home. - NO public transportation without another adult. - We recommend that an adult stay with you for 24 hours following discharge. - We also recommend that you do not drive, make important decision, drink alcoholic beverages, or take any drugs that were not prescribed by your health care provider for at least 24 hours after your discharge time. Follow any additional instructions given to you from your surgeon. If you or anyone in your household have experienced Covid symptoms in the past week, please notify your surgeon or the nurse liaison at the phone number below for possible testing. Telephone instructions given to ____PT and asked if any additional questions and then verbalized understanding. Patient advised to call surgeon office or pre surgery nurse liaison [phone] if any additional questions.
--- NOTE | 2022-04-07 21:44 | PM.IMHP ---
H&P: HPI History of Present Illness Date/Time: 04/07/22 21:44 Chief Complaint: Postmenopausal bleeding Narrative: Patient is a 71yo woman who presented to the gynecology office for evaluation of postmenopausal bleeding and thickened endometrium. Patient reported episode of heavy bleeding in 01/2022. A pelvic ultrasound was performed and showed a thickened endometrial stripe measuring 2.1 cm. EMB was performed showing an endometrial polyp. Discussion had with patient and decision made to proceed with hysteroscopy/D&C for further evaluation. In general, patient doing well today without complaints. Review of Systems Review of Systems: All systems reviewed & are unremarkable except as noted in HPI and below Constitutional: Constitutional: Reports as per HPI and Reports no additional constitutional complaints Eyes: Eyes: Reports as per HPI and Reports no additional eye complaints ENT: Reports system reviewed and no additional complaints, except as documented and Reports as per HPI Cardiovascular: Cardiovascular: Reports as per HPI and Reports no additional cardiovascular complaints Respiratory: Respiratory: Reports as per HPI and Reports no additional respiratory complaints Gastrointestinal: Gastrointestinal: Reports as per HPI and Reports no additional gastrointestinal complaints Genitourinary: Genitourinary: Reports no additional female genitourinary complaints and Reports as per HPI Musculoskeletal: Musculoskeletal: Reports no additional musculoskeletal complaints and Reports as per HPI Integumentary/Breasts: Skin/Breast: Reports system reviewed and no additional complaints, except as docu and Reports as per HPI Neurologic: Reports system reviewed and no additional complaints, except as documented and Reports as per HPI Psychiatric: Psychiatric: Reports no additional psychiatric complaints and Reports as per HPI Endocrine: Endocrine: Reports no additional endocrine complaints and Reports as per HPI Hematologic/Lymphatic: Hematologic/Lymphatic: Reports no additional hematologic/lymphatic complaints Allergic/Immunologic: Allergic/Immunologic: Reports no additional allergic/immunologic complaints and Reports as per HPI [facility] Past Medical History Medical History Anxiety BMI 40.0-44.9, adult Chronic arthritis Colon cancer History of blood transfusion History of one miscarriage History of postoperative nausea History of stress test (~2021) History of vaginal delivery x3 Hypertension Low back pain Surgical History Surgical History History of removal of cyst S/P knee replacement (~2014) Family History Family History Mother Hypertension Acute myocardial infarction, Onset Age: 73 Patient's mother is Sibling Acute myocardial infarction, Onset Age: 58 Patient's brother is Father Patient's father is Other Family history of cardiovascular disease Social History Social History Smoking status: Never smoker Second hand tobacco smoke exposure: No Alcohol intake: never Substance use: never Substance use type: does not use Gender identity (if verbalized by the patient): Female Spiritual care concerns: No Meds Home Medications and Allergies Home Medications Medication Instructions Recorded Confirmed Type acetaminophen 500 mg tablet 500 mg PO Q6H PRN Pain 03/10/20 03/28/22 History (Tylenol Extra Strength) diclofenac sodium 75 mg 75 mg PO BID PRN pain #180 tabs 02/16/22 03/28/22 Rx tablet,delayed release meclizine 25 mg tablet 25 mg PO BID PRN dizziness #60 tabs 02/16/22 03/28/22 Rx losartan 100 1 tablet PO DAILY #90 tabs 02/18/22 03/28/22 Rx mg-hydrochlorothiazide 25 mg tablet pantoprazole 40 mg tablet,delayed
[2022-04-08] MEDS: LACTATED RINGERS 1,000 ML 30 ML IV CONT (09:45)
--- NOTE | 2022-04-08 09:45 | P.PNAN_ITS ---
Anes - Initial Pre Proc Eval Procedure: Operation Date: 04/08/22 10:30 Proposed Procedures p Hysteroscopy Dilation and Curettage with Polypectomy, Possible Myosure - Mikki Martin MD Date/Time: 04/08/22 09:45 Surgeon: Mikki Martin MD Pre Op Diagnosis: uterine polyp Patient Data Age: 71 Gender: F Height: 1.65 m Weight: 104.54 kg Allergies Allergy/AdvReac Type Severity Reaction Status Date / Time prochlorperazine AdvReac Severe Itching Verified 03/22/22 15:17 Home Medications Medication Instructions Recorded Confirmed Type acetaminophen 500 mg tablet 500 mg PO Q6H PRN Pain 03/10/20 03/28/22 History (Tylenol Extra Strength) diclofenac sodium 75 mg 75 mg PO BID PRN pain #180 tabs 02/16/22 03/28/22 Rx tablet,delayed release meclizine 25 mg tablet 25 mg PO BID PRN dizziness #60 tabs 02/16/22 03/28/22 Rx losartan 100 1 tablet PO DAILY #90 tabs 02/18/22 03/28/22 Rx mg-hydrochlorothiazide 25 mg tablet pantoprazole 40 mg tablet,delayed 40 mg PO QAM 03/28/22 03/28/22 History release (Protonix) Patient hx anesthesia problems: none Family hx anesthesia problems: none Results Review: All pre-operative results and documents have been reviewed as part of the pre- operative evaluation. [facility] Past Medical History Medical History Anxiety BMI 40.0-44.9, adult Chronic arthritis Colon cancer History of blood transfusion History of one miscarriage History of postoperative nausea History of stress test (~2021) History of vaginal delivery x3 Hypertension Low back pain Surgical History Surgical History History of removal of cyst S/P knee replacement (~2014) Family History Family History Mother Hypertension Acute myocardial infarction, Onset Age: 73 Patient's mother is Sibling Acute myocardial infarction, Onset Age: 58 Patient's brother is Father Patient's father is Other Family history of cardiovascular disease Social History Social History Smoking status: Never smoker Second hand tobacco smoke exposure: No Alcohol intake: never Substance use: never Substance use type: does not use Living arrangements: alone Gender identity (if verbalized by the patient): Female Spiritual care concerns: No Anes - Eval Final PreProcedure Day of Procedure 04/08/22 09:45 Patient weight: obese Heart: regular rate and rhythm Lungs: clear to auscultation Airway: Mallampati scale class II Neurological: alert and oriented Last oral intake: >/= 8 hours ASA classification: III Emergent: no Anesthetic plan: proceed Anesthesia type and monitoring: general GIVS and standard monitoring Results Review: All pre-operative results and documents have been reviewed as part of the pre- operative evaluation. Informed Consent: The patient's anesthetic plan and its attendant risks and benefits were discussed with the patient/family/POA. Questions were solicited and answers provided to the satisfaction of the patient/family/POA.
[2022-04-08 09:49] VITALS: BP 152/91; PULSE 70; RESP 14; TEMP 37.3; O2SAT 95
--- NOTE | 2022-04-08 10:52 | WPDHPUPDATE1 ---
History and Physical Update Update Date/Time: 04/08/22 10:52 History and Physical has been reviewed, including an updated exam of the patient. There are NO changes in the patient's condition. Risks, benefits, and alternatives have been discussed and questions answered. Patient agrees to proceed with procedure.
[2022-04-08] MEDS: LIDOCAINE 1% BUFFERED WITH 8.4% SODIUM BICARB 1 ML SYRINGE 10 ML INFILTRATE (11:15)
[2022-04-08 11:28] VITALS: BP 121/66; PULSE 64; RESP 19; TEMP 37.2; O2SAT 100
[2022-04-08 11:35] VITALS: BP 148/71; PULSE 61; RESP 15; O2SAT 93
[2022-04-08 11:46] VITALS: BP 118/60; PULSE 54; RESP 15
[2022-04-08] MEDS: oxyCODONE HCL (*CRX) 5 MG TAB IR PO (12:04)
--- NOTE | 2022-04-08 12:12 | W.PM.PROC2 ---
Procedure Note - Detailed Date of Procedure 04/08/22 Pre-op Diagnosis Postmenopausal bleeding Suspected endometrial polyp Post-op Diagnosis Same Procedure Performed Hysteroscopy, dilation and curettage Surgeon Mikki Martin MD Anesthesia MAC Findings normal, atrophic appearing endometrial cavity, no lesions seen, bilateral tubal ostia visualized, scant amount of tissue obtained Description of Procedure The patient was taken to the operating room where she self-transferred to the operating room table.?Due to chronic right leg pain, patient was positioned in the dorsal lithotomy position with the use of Epifanio stirrups to ensure optimal comfort prior to induction of anesthesia.?When patient was comfortable, anesthesia was administered and found to be adequate.? She was prepped and draped in the usual sterile fashion.? A red rubber catheter was used to drain the bladder of 75 cc of urine.? A bivalve speculum was inserted into the vagina.? The cervix was visualized and the anterior lip of the cervix was grasped with a single-tooth tenaculum.? A paracervical block with 1% plain lidocaine was performed.? 5 cc of lidocaine was administered on either side.? The cervix was serially dilated to accommodate a hysteroscope.? The hysteroscope was advanced into the endometrial cavity. The endometrial cavity appeared grossly normal. No abnormalities were identified. Bilateral tubal ostia were visualized. A few pictures were taken. The hysteroscope was removed. A medium sized rigid curette was then introduced into the endometrial cavity. All quadrants of the uterus were explored and a minimal amount of tissue was obtained. The specimen was prepared to be sent to pathology for analysis.? The tenaculum was removed.? No bleeding was noted from tenaculum puncture sites. The vagina was cleansed and dried.? The speculum was removed.? The remainder of the patient was cleansed and dried.? She was taken out of the dorsal lithotomy position and awakened from anesthesia without difficulty. She was transferred to the recovery room in stable condition. All sponge, lap, instrument counts were correct at end of the procedure. Estimated Blood Loss 1 IV Fluids 600 (hysteroscopic fluid: 100cc in/100cc out) Urine Output 75 Drains No Packing No Pathology Yes (endometrial curettings) Complications Other complications (towards end of procedure, there was concern from anesthesia regarding suctioning contents from mouth that appeared to be gastric, however, patient was awakened without difficulty and did not appear to have any other issues) Condition Stable Disposition PACU [facility] Billing Surgery - Charge Forward: Surgery Billing
[2022-04-08 12:15] VITALS: BP 138/60; PULSE 61; RESP 15
== END 2022-04-08 12:23 | disposition home or self-care (01) ==
PROVIDERS: PCP Physician Assistant; Visit Provider Student in an Organized Health Care Education/Training Program
PROC: 0U5B8ZZ Destruction of Endometrium, Via Natural or Artificial Opening Endoscopic (ICD-10-PCS; CPT 58563; principal; 2022-04-08 10:30)
DX: N95.0 Postmenopausal bleeding (principal); I10 Essential (primary) hypertension; E66.9 Obesity, unspecified; Z68.39 Body mass index [BMI] 39.0-39.9, adult
CPT/HCPCS: 58558; 36415; 80048; 88305; A9270; J0131; J2405; J2704; J3010; J7030; J7120

== ENCOUNTER 2022-08-30 10:52 | Outpatient (CLI) | payer OTHER, SELFPAY ==
--- NOTE | ~2022-08-30 | XR_ITS ---
EXAM: XR lumbar spine 6V w bending DATE: 08/30/2022 11:38 HISTORY: M54.50 - Low back pain, CHRONIC, NO INJ , NO SURG . COMPARISON: 12/03/2017, 06/21/2011. FINDINGS: 5 nonrib-bearing lumbar-type vertebral bodies. Pedicles intact. 6 mm anterolisthesis at L4 -5 that is stable in flexion and reduces slightly in extension. Vertebral bodies otherwise aligned. V ertebral body heights preserved. Multilevel disc space narrowing and marginal osteophytosis, severe a t L5-S1. Multilevel mid and lower lumbar facet sclerosis and hypertrophy. No pars defect. No fracture or dislocation. Atherosclerotic aortic calcification without significant aneurysm. Bone islands in T 10 and the right iliac wing. IMPRESSION: Grade 1 dynamic anterolisthesis at L4-5. Multilevel degenerative disc disease, severe at L5-S1. Mid/lower lumbar facet arthropathy. Reviewed, dictated and finalized at location K. IMPRESSION: Grade 1 dynamic anterolisthesis at L4-5. Multilevel degenerative di sc disease, severe at L5-S1. Mid/lower lumbar facet arthropathy.
[2022-08-30 11:29] LABS: Basophils Absolute Auto 0.1 K/mm3 (0.0-0.1); Basophils Percent Auto 0.8 % (0.2-1.2); Eosinophils Absolute Auto 0.2 K/mm3 (0-0.3); Eosinophils Percent Auto 2.5 % (0-4.4); Hematocrit 38.7 % (37.0-47.0); Immature Granulocyte Absolute 0.02 K/mm3 (0.00-0.031); Immature Granulocyte Percent A 0.3 % (0-0.5); Lymphocytes Absolute Auto 1.54 K/mm3 (0.9-3.2); Lymphocytes Percent Auto 26.1 % (18.3-44.2); Mean Corpuscular HGB Conc 33.6 g/dl (32-36); Mean Corpuscular Hemoglobin 30.6 pg (26-34); Mean Corpuscular Volume 91.1 fl (80-100); Mean Platelet Volume 10.1 fl (7.4-10.4); Monocytes Absolute Auto 0.4 K/mm3 (0.1-0.6); Monocytes Percent Auto 6.9 % (2.6-8.5); Neutrophils Absolute Auto 3.7 K/mm3 (1.3-6.7); Neutrophils Percent Auto 63.4 % (45.5-73.1); Platelet Count Result 212 k/mm3 (150-375); Red Blood Count 4.25 M/mm3 (4.2-5.4); Red Cell Distribution Width 13.6 % (11.5-14.5); White Blood Count 5.9 K/mm3 (4.5-10.0)
[2022-08-30 11:51] LABS: Hemoglobin A1C 5.9 % (<5.7)
[2022-08-30 11:53] LABS: Alanine Aminotransferase 25 U/L (6-35); Albumin Level 4.1 g/dL (3.5-5.1); Alkaline Phosphatase 161 U/L (38-126); Anion Gap 8 mmol/L (8-16); Aspartate Amino Transferase 19 U/L (14-36); Bilirubin,Total 0.9 mg/dL (0.2-1.3); Blood Urea Nitrogen 22 mg/dL (7-17); Calcium 8.8 mg/dL (8.4-10.2); Carbon Dioxide 24 mmol/L (22-30); Chloride 107 mmol/L (98-107); Cholesterol 256 mg/dL (0-200); Estimated Glomerular Filt Rate 32; Glucose 133 mg/dL (65-110); HDL Direct 27 mg/dL; Potassium 3.4 mmol/L (3.4-5.0); Sodium 139 mmol/L (137-145); Triglycerides 151 mg/dL (<150)
[2022-08-30 12:04] LABS: LDL Cholesterol Direct 190 mg/dL
[2022-08-30 12:59] LABS: Folic Acid 7.6 ng/mL (2.76->20)
== END 2022-08-30 10:53 | disposition home or self-care (01) ==
PROVIDERS: PCP Physician Assistant; Visit Provider Physician Assistant
DX: G89.29 Other chronic pain (principal); E66.9 Obesity, unspecified; I10 Essential (primary) hypertension; R53.83 Other fatigue; R73.9 Hyperglycemia, unspecified; M51.36 Other intervertebral disc degeneration, lumbar region
CPT/HCPCS: 36415; 72114; 80053; 80061; 82607; 82746; 83036; 84443; 85025

== ENCOUNTER 2023-05-22 17:03 | Emergency (ER) | payer OTHER, SELFPAY ==
--- NOTE | ~2023-05-22 | XR_ITS ---
EXAMINATION: XR chest 2V DATE: 05/22/2023 18:13 INDICATION: Cough and shortness of breath. TECHNIQUE: Frontal and lateral views of the chest were obtained. COMPARISON: Chest 2 views 05/26/2021 FINDINGS: There is no pneumonia, pleural effusion, or pneumothorax. There is a moderate-sized hiatal hernia. There is mild chronic anterior wedging of multiple vertebral bodies. IMPRESSION: 1. Moderate-sized hiatal hernia. Reviewed, dictated and finalized at location E. [employer]ER
[2023-05-22 17:48] VITALS: BP 154/85; PULSE 97; RESP 18; TEMP 37.1; O2SAT 96
[2023-05-22 21:25] VITALS: BP 134/69; PULSE 80; RESP 19; TEMP 36.7; O2SAT 100
[2023-05-22 22:04] LABS: Influenza A QL RT-PCR Negative (Negative); Influenza B QL RT-PCR Negative (Negative); RSV RNA, RT-PCR Positive (Negative); SARS-CoV-2 RNA PCR Negative (Negative)
[2023-05-22 23:06] VITALS: BP 151/85; PULSE 76; RESP 24; TEMP 36.8; O2SAT 100
[2023-05-22 23:08] VITALS: O2SAT 100
--- NOTE | 2023-05-22 23:18 | ED.URI ---
HPI - URI/Sore Throat General Chief Complaint: Upper Respiratory Infection Stated Complaint: cough/fever Time Seen by Provider: 05/22/23 23:02 History of Present Illness HPI Narrative: Patient is a 72-year-old female presenting with URI symptoms. States for the last 4-5 days she has had a scratchy sore throat with cough and nasal congestion. States that she has been feeling intermittently short of breath. PCP was unable to get her in until July so she came in for evaluation. No chest pain, leg swelling, abdominal pain, nausea vomiting, diarrhea. No further complaints. Related Data Home Medications Medication Instructions Recorded Confirmed cyclobenzaprine 10 mg tablet 10 mg PO TID 08/26/22 08/26/22 multivitamin 1 tablet PO DAILY 08/26/22 08/26/22 turmeric root extract 500 mg tablet 500 mg PO DAILY 08/26/22 08/26/22 Allergies Allergy/AdvReac Type Severity Reaction Status Date / Time prochlorperazine AdvReac Severe Itching Verified 05/22/23 23:08 Review of Systems Review of Systems: All systems reviewed & are unremarkable except as noted in HPI and below PMFSH Past Medical History Medical History Anxiety BMI 40.0-44.9, adult Chronic arthritis Colon cancer History of blood transfusion History of one miscarriage History of postoperative nausea History of stress test (~2021) History of vaginal delivery x3 Hypertension Low back pain Surgical History Surgical History History of removal of cyst S/P knee replacement (~2014) Family History Family History Mother Hypertension Acute myocardial infarction, Onset Age: 73 Patient's mother is Sibling Acute myocardial infarction, Onset Age: 58 Patient's brother is Father Patient's father is Other Family history of cardiovascular disease Social History Social History Smoking status: Never smoker Second hand tobacco smoke exposure: No Alcohol intake: never Substance use: never Substance use type: does not use Lack of Transportation: No Lack of Food: Never True Current Housing: I Have Housing Concerned About Future Housing: No Difficulty Paying Gas/Electric Bills: No Difficulty Paying for Meds: No Currently Unemployed: No Education: High School Diploma/GED Difficulty w/ Childcare or Family Care: No Living arrangements: alone Gender identity (if verbalized by the patient): Female Spiritual care concerns: No Exam Narrative: GENERAL: Well-appearing, Nontoxic, no acute distress HEAD: Normocephalic, atraumatic. EYES: PERRLA and EOMI. ENT: Mucous membranes moist. posterior pharynx without significant erythema. No edema or exudates NECK: Supple. CHEST: Clear to auscultation. No respiratory distress. HEART: Regular rate and rhythm. ABDOMEN: Soft, nontender, nondistended EXTREMITIES: Normal range of motion. No edema. SKIN: Warm, dry, no rash. NEURO: No focal deficits. Alert and oriented x3. PSYCH: Normal mood and affect. Course Vital Signs Vital signs: Vital Signs Temperature 98.8 F 05/22/23 17:48 Pulse Rate 97 05/22/23 17:48 Respiratory Rate 18 05/22/23 17:48 Blood Pressure 154/85 H 05/22/23 17:48 Pulse Oximetry 96 05/22/23 17:48 Oxygen Delivery Room Air 05/22/23 17:48 Temperature 98.2 F 05/22/23 23:06 Pulse Rate 76 05/22/23 23:06 Respiratory Rate 24 H 05/22/23 23:06 Blood Pressure 151/85 H 05/22/23 23:06 Pulse Oximetry 100 05/22/23 23:08 Oxygen Delivery Room Air 05/22/23 23:08 MDM - URI/Sore Throat MDM Narrative Medical decision making narrative: 72-year-old female presenting with cough and sore throat for several days. Vitals are stable. Exam r
== END 2023-05-22 23:36 | disposition home or self-care (01) ==
PROVIDERS: Student in an Organized Health Care Education/Training Program; Emergency Provider Emergency Medicine; PCP Internal Medicine
DX: J22 Unspecified acute lower respiratory infection (principal); B97.4 Respiratory syncytial virus as the cause of diseases classified elsewhere; Z20.822 Contact with and (suspected) exposure to COVID-19; I10 Essential (primary) hypertension; M19.90 Unspecified osteoarthritis, unspecified site; F41.9 Anxiety disorder, unspecified; Z96.659 Presence of unspecified artificial knee joint; K44.9 Diaphragmatic hernia without obstruction or gangrene
CPT/HCPCS: 71046; 87637; 99283

== ENCOUNTER 2024-02-02 10:16 | Outpatient (CLI) | payer OTHER, SELFPAY ==
[2024-02-02 10:41] LABS: Basophils Absolute Auto 0.1 K/mm3 (0.0-0.1); Basophils Percent Auto 0.9 % (0.2-1.2); Eosinophils Absolute Auto 0.2 K/mm3 (0-0.3); Eosinophils Percent Auto 3.3 % (0-4.4); Hematocrit 40.2 % (37.0-47.0); Hemoglobin 13.1 g/dL (12.0-15.0); Immature Granulocyte Absolute 0.02 K/mm3 (0.00-0.031); Immature Granulocyte Percent A 0.3 % (0-0.5); Lymphocytes Absolute Auto 1.82 K/mm3 (0.9-3.2); Lymphocytes Percent Auto 27.1 % (18.3-44.2); Mean Corpuscular HGB Conc 32.6 g/dl (32-36); Mean Corpuscular Hemoglobin 30.8 pg (26-34); Mean Corpuscular Volume 94.6 fl (80-100); Mean Platelet Volume 9.9 fl (7.4-10.4); Monocytes Absolute Auto 0.5 K/mm3 (0.1-0.6); Monocytes Percent Auto 7.5 % (2.6-8.5); Neutrophils Absolute Auto 4.1 K/mm3 (1.3-6.7); Neutrophils Percent Auto 60.9 % (45.5-73.1); Platelet Count Result 207 k/mm3 (150-375); Red Blood Count 4.25 M/mm3 (4.2-5.4); Red Cell Distribution Width 13.4 % (11.5-14.5); White Blood Count 6.7 K/mm3 (4.5-10.0)
[2024-02-02 10:54] LABS: Alanine Aminotransferase 55 U/L (6-35); Albumin Level 4.1 g/dL (3.5-5.1); Alkaline Phosphatase 187 U/L (38-126); Anion Gap 7 mmol/L (4-12); Aspartate Amino Transferase 45 U/L (14-36); Bilirubin,Total 0.8 mg/dL (0.2-1.3); Blood Urea Nitrogen 28 mg/dL (7-17); Calcium 8.6 mg/dL (8.4-10.2); Carbon Dioxide 31 mmol/L (22-30); Chloride 102 mmol/L (98-107); Cholesterol 164 mg/dL (0-200); Estimated Glomerular Filt Rate 32; Glucose 170 mg/dL (65-110); HDL Direct 30 mg/dL; Potassium 4.2 mmol/L (3.4-5.0); Sodium 140 mmol/L (137-145); Triglycerides 146 mg/dL (<150)
[2024-02-02 10:55] LABS: Hemoglobin A1C 7.2 % (<5.7)
[2024-02-02 11:05] LABS: LDL Cholesterol Direct 107 mg/dL
[2024-02-02 11:57] LABS: Folic Acid 12.6 ng/mL (2.76->20)
== END 2024-02-02 10:17 | disposition home or self-care (01) ==
PROVIDERS: PCP Internal Medicine; Visit Provider Physician Assistant
DX: R53.83 Other fatigue (principal); R73.9 Hyperglycemia, unspecified; R07.9 Chest pain, unspecified
CPT/HCPCS: 36415; 80053; 80061; 82607; 82746; 83036; 84443; 85025

== ENCOUNTER 2024-02-21 08:45 | Outpatient (CLI) | payer OTHER, SELFPAY ==
--- NOTE | ~2024-02-21 | US_ITS ---
US arterial ankle brachial ind INDICATION: Peripheral vascular disease TECHNIQUE: Segmental pressures and plethysmographic and Doppler waveforms of the brachial and lower e xtremity arteries were obtained. COMPARISON: None. FINDINGS: Right and left brachial artery pressures of 161 mm Hg and 164 mm Hg, respectively, are concordant (no rmal difference <= 30 mmHg). The right ankle-brachial index (BRANDIN) is 0.48 (normal >= 0.9-1.0). The right great toe-brachial index (TBI) is 0.23 (normal >= 0.60). The left BRANDIN is 0.6. The left TBI is 0.21. IMPRESSION: 1. Diminished bilateral ankle and toe brachial indices consistent with peripheral arterial disease. Reviewed, dictated and finalized at location B. IMPRESSION: 1. Diminished bilateral ankle and toe brachial indices consistent with peripher al arterial disease.
== END 2024-02-21 08:46 | disposition home or self-care (01) ==
LOC: ANHIMG 08:50
PROVIDERS: PCP Internal Medicine; Visit Provider Internal Medicine
DX: I73.9 Peripheral vascular disease, unspecified (principal)
CPT/HCPCS: 93922

== ENCOUNTER 2024-04-29 10:30 | Outpatient (CLI) | payer OTHER, SELFPAY ==
--- NOTE | ~2024-04-29 | US_ITS ---
EXAMINATION: US renal BI DATE: 04/29/2024 10:47 INDICATION: Stage IIIB chronic kidney disease TECHNIQUE: Multiple ultrasound grayscale images of the kidneys were obtained. COMPARISON: None. FINDINGS: The right kidney measures 8.2 x 4.2 x 5.0 cm. The left kidney measures cm. The kidneys demonstrate no rmal echogenicity. There is mild cortical thinning at both kidneys. There is no hydronephrosis in eit her kidney. No stones identified. The bladder is normal. IMPRESSION: 1. Mild bilateral renal cortical thinning. Kidneys otherwise unremarkable with no hydronephrosis. Reviewed, dictated and finalized at location B. [employer] MANAGER
== END 2024-04-29 10:31 | disposition home or self-care (01) ==
LOC: MICIMG 10:31
PROVIDERS: PCP Internal Medicine Nephrology; Visit Provider Internal Medicine Nephrology
DX: N18.32 Chronic kidney disease, stage 3b (principal)
CPT/HCPCS: 76775

== ENCOUNTER 2024-06-03 08:36 | Outpatient (CLI) | payer OTHER, SELFPAY ==
[2024-06-03 09:26] LABS: Albumin Level 4.1 g/dL (3.5-5.1); Anion Gap 8 mmol/L (4-12); Blood Urea Nitrogen 25 mg/dL (7-17); Carbon Dioxide 30 mmol/L (22-30); Chloride 99 mmol/L (98-107); Estimated Glomerular Filt Rate 29; Glucose 294 mg/dL (65-110); Phosphorus 2.9 mg/dL (2.5-4.5); Potassium 3.8 mmol/L (3.4-5.0); Sodium 137 mmol/L (137-145)
[2024-06-03 09:32] LABS: Complement C3 154 mg/dL (88-165)
[2024-06-03 10:57] LABS: Creatinine Urine 77.2 mg/dL; Total Protein Urine Random 13 mg/dL; Ur Ttl Prot Creatinine Ratio 0.17 mg/mg (0-0.20)
[2024-06-04 07:49] LABS: Protein, Total 6.9 g/dL (6.1-8.1)
[2024-06-04 11:19] LABS: Creatinine, Random Urine 73 mg/dL (20-275); Total Prot/Creat ratio mg/mg 0.137 (0.024-0.184); Total Protein/Creatinine Ratio 137 mg/g creat (24-184)
[2024-06-06 17:18] LABS: Anti Glomerular Basement Memb <1.0 AI
[2024-06-07 04:44] LABS: ANCA Screen ATYP P-ANCA POS (NEGATIVE); Atyp PANCA Ttr Reflex Chg Test YES
--- OUTSIDE RECORDS SUMMARY | 2024-06-09 16:25 | XMS_ITS | Referral Summary ---
Author Organization [facility] [address] Address [address] [place] [id number] Care Team Providers Care Discharge Door Operator Name Role Phone Eric Wen DO Primary Care Provider [phone] Encounters Date Type Department Care Team Description 06/04/2024 7:30 AM BUYER RENTER - 06/04/2024 8:30 AM BUYER RENTER Surgery [facility] Cardiac Printing Table Worker [facility] [place] [address] Sammy Rojas MD BILATERAL LOWER EXTREMITY ANGIOGRAM WITH POSSIBLE INTERVENTION AND WITH RIGHT GROIN ACCESS 06/04/2024 5:51 AM BUYER RENTER - 06/04/2024 1:59 PM BUYER RENTER Hospital Encounter [facility] Cardiac Printing Table Worker [facility] [place] [address] Sammy Rojas MD Atherosclerotic PVD with intermittent claudication (HCC); Other disorder of circulatory system Discharge Disposition: Discharge to home or self care 05/22/2024 Documentation [facility] Vascular and Vein Surgery [address] [place] [id number] Haley Jenkins, RN 05/22/2024 9:15 AM BUYER RENTER Office Visit [facility] Vascular at [address] [place] [address] Sammy Rojas MD PVD (peripheral vascular disease) (HCC) (Primary Dx); Primary hypertension; Mixed hyperlipidemia 04/24/2024 10:00 AM BUYER RENTER Ancillary Procedure [facility] Vascular and Vein Surgery at [address] [place] [address] PVD (peripheral vascular disease) ([facility]) 04/10/2024 Orders Only [facility] Vascular at [address] [place] [address] Sammy Rojas MD PVD (peripheral vascular disease) ([facility]) (Primary Dx) 04/10/2024 9:00 AM CDT Office Visit [facility] Vascular at [address] [place] [address] Cathy Jaffe NP PVD (peripheral vascular disease) ([facility]) (Primary Dx); Mixed hyperlipidemia; Primary hypertension; Type 2 diabetes mellitus without complication, without long-term current use of insulin ([facility]) ([facility]) from Last 3 Months Allergies Active Allergy Reactions Criticality Noted Date Comments Prochlorperazine Itching Low 04/10/2024 Medications dapagliflozin propanediol (FARXIGA) 10 mg tablet 1 tablet (10 mg total) Active escitalopram (LEXAPRO) 10 mg tablet Take 1 tablet (10 mg total) by mouth daily Active pantoprazole DR (PROTONIX) 40 mg EC tablet Take 1 tablet (40 mg total) by mouth daily Active zolpidem (AMBIEN) 10 mg tabletIndication s:Sleep-Onset Insomnia Take 1 tablet (10 mg total) by mouth nightly as needed for sleep Active meclizine (ANTIVERT) 25 mg tablet Take 1 tablet (25 mg total) by mouth 3 (three) times a day as needed for dizziness Active rosuvastatin (CRESTOR) 5 mg tablet Take 1 tablet (5 mg total) by mouth daily Active losartan-hydroch lorothiazide (HYZAAR) 100-25 mg per tablet Take 1 tablet by mouth daily Active cyclobenzaprine (FLEXERIL) 10 mg tablet Take 1 tablet (10 mg total) by mouth 3 (three) times a day as needed for muscle spasms Active turmeric root extract 500 mg capsule Take by mouth Active zkkygrwn-edo-uvc ic acid-biotin 66.7-1,000 mcg tablet Take by mouth Active Active Problems Problem Noted Date Diagnosed Date Atherosclerotic PVD with intermittent claudicati on 05/22/2024 PVD (peripheral vascular disease) 04/11/2024 Assessment & Plan (05/24/2024 10:29 AM BUYER RENTER): Bilateral extremity severe occlusive disease with life-limiting claudication. Risks benefits alternatives to lower extremity angiography with possible intervention discussed, risks including bleeding, infection, perforation, contrast induced nephropathy, dissection, thrombosis, distal embolization and need further surgery. She wished proceed. Assessment & Plan (04/11/2024 3:41 PM CDT): Impression: Patient complain of symptoms of claudication to bilateral lower extremities with her right lower extremity worse than the left. Patient also complains of constant discomfort to her lower extremities prolonged standing and sitting with occasional neurogenic claudication. She does have a history of scoliosis and lumbar stenosis. No open ulcerations are noted to bilateral lower extremities. Audible signals are noted to bilateral distal dorsalis pedis pulses. Plan: Recommend for her to bilateral lower extremities and return in 2-3 weeks for re-evaluation. Primary hypertension 04/11/2024 Assessment & Plan (05/24/2024 10:29 AM BUYER RENTER): Stable continue losartan hydrochlorothiazide Assessment & Plan (04/11/2024 3:42 PM CDT): Impression: Chronic and stable. Plan: Continue Hyzaar Mixed hyperlipidemia 04/11/2024 Assessment & Plan (05/24/2024 10:29 AM BUYER RENTER): Stable continue Crestor Assessment & Plan (04/11/2024 3:42 PM CDT): Impression: Chronic stable. Plan: Continue rosuvastatin. Type 2 diabetes mellitus wit hout complication, without long-term current use of insulin ([facility]) 04/11/2024 Assessment & Plan (04/11/2024 3:42 PM CDT): Impression: Chronic with good glucose control. Plan: Continue [facility] Social History Tobacco Use Types Packs/Day Years Used Date Smoking Tobacco: Never Smokeless Tobacco: Never Tobacco Cessation:Counseling Given: Not Answered AUDIT-C Answer Date Recorded Q1: How often do you have a drink containing alcohol? Never 06/04/2024 Q2: How many drinks containi ng alcohol do you have on a typical day when you are drinking? Patient does not drink Q3: How often do you have si x or more drinks on one occasion? Never 06/04/2024 Personal Safety Answer Date Recorded Have you ever been in or are you currently in a harmful physical or emotional relationship or is someone making you feel afraid or unsafe? Denies 06/04/2024 Comments Unknown Sex and Gender Information Value Date Recorded Sex Assigned at Not on file Legal Sex Female 3:33 AM BUYER RENTER Gender Identity Not on file Sexual Orientation Not on file Last Filed Vital Signs Vital Sign Reading Time Taken Comments Blood Pressure 140/62 06/04/2024 1:40 PM BUYER RENTER Pulse 53 06/04/2024 1:40 PM BUYER RENTER Temperature 36.9 ??C (98.5 ??F) 06/04/2024 8:50 AM CS T Respiratory Rate 18 06/04/2024 1:40 PM BUYER RENTER Oxygen Saturation 99% 06/04/2024 1:40 PM BUYER RENTER Inhaled Oxygen Concentration - - Weight 107.3 kg (236 lb 8.9 oz) 06/04/2024 6:42 AM BUYER RENTER Height 165.1 cm (5' 5 ) 05/22/2024 9:11 AM BUYER RENTER Body Mass Index 39.36 05/22/2024 9:11 AM BUYER RENTER Plan of Treatment Not on file Procedures Procedure Name Priority Date/Time Associated Diagnosis Comments POCT GLUCOSE DEVICE Routine 06/04/2024 8 :34 AM BUYER RENTER PERIPHERAL RUN OFF CATH Routine 06/04/2024 7:58 AM BUYER RENTER Atherosclerotic PVD with intermittent claudication (HCC) DIFFERENTIAL AUTO Routine 06/04/2024 7:0 0 AM BUYER RENTER CBC WITH AUTO DIFFERENTIAL Routine 06/04/2024 7:00 AM BUYER RENTER B ABO / RH CONFIRMATION TESTING STAT 06/04/2024 7:00 AM BUYER RENTER EGFR Routine 06/04/2024 6:35 AM BUYER RENTER Atherosclerotic PVD with intermittent claudication (HCC) ANTIBODY SCREEN Timed 06/04/2024 6:35 AM BUYER RENTER Atherosclerotic PVD with intermittent claudication (HCC) ABO/RH Timed 06/04/2024 6:35 AM BUYER RENTER Atherosclerotic PVD with intermittent claudication (HCC) PROTIME-INR Routine 06/04/2024 6:35 AM BUYER RENTER Atherosclerotic PVD with intermittent claudication (HCC) TYPE AND SCREEN Timed 06/04/2024 6:35 AM BUYER RENTER Atherosclerotic PVD with intermittent claudication (HCC) APTT Routine 06/04/2024 6:35 AM BUYER RENTER Atherosclerotic PVD with intermittent claudication (HCC) Other disorder of circulatory system BASIC METABOLIC PANEL Routine 06/04/2024 6:35 AM BUYER RENTER Atherosclerotic PVD with intermittent claudication (HCC) US ARTERIAL DOPPLER LOWER EXTREMITY BILATERAL Schedule Routine, Read Routine (OP Routine) 04/24/2024 10:33 AM BUYER RENTER PVD (peripheral vascular disease) (HCC) from Last 3 Months Results * (ABNORMAL) POCT glucose (06/04/2024 8:34 AM BUYER RENTER) Glucose, POC 227(H) 70 - 199 mg/dL Blood 06/04/2024 8:34 AM BUYER RENTER 06/04/2024 8:34 AM BUYER RENTER us Sammy Rojas MD LAB POCT ORDERABLES - DEVICE Fin al Result [facility] [address] [place] [address] * PERIPHERAL RUN OFF CATH (06/04/2024 7:58 AM BUYER RENTER) Anatomical Region Laterality Modality X-Ray Angiograph y Narrative 06/04/2024 8:02 AM BUYER RENTER Please see OpNote for result. us Sammy Rojas MD CV CARDIAC CATH PROCEDURES Final Result * Differential, auto (06/04/2024 7:00 AM BUYER RENTER) Neutrophil abs 5.2 1.5 - 6.5 K/cumm Imm gran abs 0.0 0.0 - 0.1 K/cumm [facility] Lymphocyte abs 1.5 0.8 - 3.3 K/cumm [facility] Monocyte abs 0.6 0.2 - 0.8 K/cumm [facility] Eosinophil abs 0.2 0.0 - 0.5 K/cumm [facility] Basophil abs 0.1 0.0 - 0.1 K/cumm [facility] Neutrophil pct 69.1 % [facility] Comment: Interpretive Data Percent cell count reference ranges are not reported, since discordance with absolute values may lead to misinterpretation of CBC data. Current Interpretive Data was last revised on 2017. Imm gran pct 0.1 % [facility] Comment: Interpretive Data Percent cell count reference ranges are not reported, since discordance with absolute values may lead to misinterpretation of CBC data. Current Interpretive Data was last revised on 2017. Lymphocyte pct 20.1 % [facility] Comment: Interpretive Data Percent cell count reference ranges are not reported, since discordance with absolute values may lead to misinterpretation of CBC data. Current Interpretive Data was last revised on 2017. Monocyte pct 7.8 % [facility] Comment: Interpretive Data Percent cell count reference ranges are not reported, since discordance with absolute values may lead to misinterpretation of CBC data. Current Interpretive Data was last revised on 2017. Eosinophil pct 2.1 % [facility] Comment: Interpretive Data Percent cell count reference ranges are not reported, since discordance with absolute values may lead to misinterpretation of CBC data. Current Interpretive Data was last revised on 2017. Basophil pct 0.8 % [facility] Comment: Interpretive Data Percent cell count reference ranges are not reported, since discordance with absolute values may lead to misinterpretation of CBC data. Current Interpretive Data was last revised on 2017. Blood 06/04/2024 7:00 AM BUYER RENTER 06/04/2024 7:02 AM BUYER RENTER us Sammy Rojas MD LAB BLOOD ORDERABLES Final Resul t Performing Organization Address City/[facility] Co de Phone Number [facility] [address] [address] * ABO / Rh Confirmation Testing (06/04/2024 7:00 AM BUYER RENTER) Pathologist [facility] ABO/Rh Confirmation A Negative [facility] Blood 06/04/2024 7:00 AM BUYER RENTER 06/04/2024 7:03 AM BUYER RENTER Sammy Rojas MD LAB BLOOD ORDERABLES Final Resul t Performing Organization Address [facility] de Phone Number [address] [address] [facility] * CBC with auto differential (06/04/2024 7:00 AM BUYER RENTER) Pathologist [facility] WBC 7.5 3.8 - 9.9 K/cumm Hgb 13.4 11.9 - 15.5 g/dL [facility] Hct 40.0 35.6 - 45.5 % [facility] Plt 222 150 - 400 K/cumm [facility] MPV 10.6 9.1 - 12.3 fL [facility] RBC 4.54 3.90 - 5.20 M/cumm [facility] MCV 88.1 81.3 - 96.4 fL [facility] MCH 29.5 27.1 - 33.3 pg [facility] MCHC 33.5 32.3 - 35.7 g/dL [facility] RDW CV 12.8 11.1 - 14.9 % [facility] RDW SD 41.2 35.7 - 48.1 fL [facility] NRBC abs 0.00 0.00 - 0.01 K/cumm [facility] Blood 06/04/2024 7:00 AM BUYER RENTER 06/04/2024 7:02 AM BUYER RENTER us Sammy Rojas MD LAB BLOOD ORDERABLES Final Resul t Performing Organization Address City/[facility] Co de Phone Number [facility] [address] [place] [address] * (ABNORMAL) eGFR (06/04/2024 6:35 AM BUYER RENTER) [facility] eGFR 32(L) >=60 mL/min/1. 73 m2 Comment: Interpretive Data Reference Interval Normal ?>/= 90 mL/min/1.73m2 Mildly decreased* ? 60 - 89 mL/min/1.73m2 Mildly to moderately decreased ?45 - 59 mL/min/1.73m2 Moderately to severely decreased ??30 - 44 mL/min/1.73m2 Severely decreased ?15 - 29 mL/min/1.73m2 Kidney Failure ?< 15 ??mL/min/1.73m2 *Relative to young adult level Estimated glomerular filtration rate is determined by the 2020 CKD-EPI equation recommended by the National Kidney Foundation (A Unifying Approach to GFR Estimation: Recommendations of the NKF-ASK Task Force on Reassessing the Inclusion of Race in Diagnosing Kidney Disease, JASN 2020). The CKD-EPI equation should not be used for patients with unstable renal function and has not been validated in children and those over 70. Current interpretive data was last reviewed 2021. Blood 06/04/2024 6:35 AM BUYER RENTER 06/04/2024 6:39 AM BUYER RENTER Sammy Rojas MD LAB BLOOD ORDERABLES Final Resul t [facility] [address] Department [place] [address] * ABO/Rh (06/04/2024 6:35 AM BUYER RENTER) ABO/Rh A Negative Blood 06/04/2024 6:35 AM BUYER RENTER 06/04/2024 6:39 AM BUYER RENTER Narrative [facility] - 06/04/2024 7:17 AM BUYER RENTER Has the patient had Daratumumab or Isatuximab in the past 6 months?->Unknown Result [facility] Sammy Rojas MD LAB BLOOD BANK TEST ORDERABLES F inal Result Performing Organization Address [facility] de Phone Number [address] [place] [employer] [place] [address] * aPTT (06/04/2024 6:35 AM BUYER RENTER) Pathologist [facility] aPTT 24 22 - 37 sec Comment: Interpretive data aPTT test has not been evaluated for monitoring heparin therapy. The anti-Xa is the preferred test. Current interpretive data was last revised on 2019. Blood 06/04/2024 6:35 AM BUYER RENTER 06/04/2024 6:39 AM BUYER RENTER Result [facility] Sammy Rojas MD LAB BLOOD ORDERABLES Final Resul t Performing Organization Address [facility] de Phone Number [address] [place] [employer] [address] * Protime-INR (06/04/2024 6:35 AM BUYER RENTER) Pathologist [facility] PT 13.8 12.0 - 14.6 sec INR 1.0 0.9 - 1.2 [facility] Comment: Ref Range High Interpretive data Oral anticoagulant therapeutic ranges: Venous thromboembolism prophylaxis or treatment: 2.0-3.0 CARDIOLOGY Standard range: 2.0-3.0 High-intensity range: 2.5-3.5 Refer to indication-specific guidelines for appropriate target ranges for prosthetic heart valve replacement. Current interpretive data was last revised on 2019. Blood 06/04/2024 6:35 AM BUYER RENTER 06/04/2024 6:39 AM BUYER RENTER Result [facility] Sammy Rojas MD LAB BLOOD ORDERABLES Final Resul t Performing Organization Address City/[facility] Co de Phone Number [address] [address] * Antibody screen (06/04/2024 6:35 AM BUYER RENTER) [facility] Goran, indirect, Gel Interpretation Negative ABSC Blood 06/04/2024 6:35 AM BUYER RENTER 06/04/2024 6:39 AM BUYER RENTER Narrative [facility] - 06/04/2024 7:17 AM BUYER RENTER Has the patient had Daratumumab or Isatuximab in the past 6 months?->Unknown us Sammy Rojas MD LAB BLOOD BANK TEST ORDERABLES F inal Result Performing Organization Address [facility] de Phone Number [address] [address] * (ABNORMAL) Basic metabolic panel (06/04/2024 6:35 AM BUYER RENTER) [facility] Sodium 136 135 - 145 mmol/L Potassium, pl 3.4 3.3 - 4.9 mmol/L [facility] Comment:Hemolyzed; Potassium value may be falsely elevated by as much as 1.0 mmol/L. Suggest redraw and reanalysis. Chloride 99 97 - 110 mmol/L [facility] CO2 25 22 - 32 mmol/L [facility] Anion gap 12 2 - 15 mmol/L [facility] BUN 22 6 - 25 mg/dL [facility] Creatinine 1.68(H) 0.60 - 1.10 mg/dL [facility] Glucose 277(H) 70 - 199 mg/dL [facility] Comment: Interpretive Data Fasting glucose >/= 126 mg/dl is diagnostic for diabetes. ?? Fasting is defined as no caloric intake for at least 8 hours. Fasting glucose between 100 mg/dl to 125 mg/dl is diagnostic of prediabetes. In a patient with classic symptoms of hyperglycemia or hyperglycemic crisis, a random glucose >/= 200 mg/dl is diagnostic for diabetes. In the absence of unequivocal hyperglycemia, results should be confirmed by repeat testing. The classification and Diagnosis of Diabetes Diabetes Care 202; 46: S19-S40. Current interpretive data was last revised 2022. Calcium 8.9 8.5 - 10.3 mg/dL [facility] Blood 06/04/2024 6:35 AM BUYER RENTER 06/04/2024 6:39 AM BUYER RENTER us Sammy Rojas MD LAB BLOOD ORDERABLES Final Resul t [facility] [address] Department of Laboratories [place], [place] [id number] * US Arterial Doppler Lower Extremity Bilateral (04/24/2024 10:33 AM BUYER RENTER) Anatomical Region Laterality Modality Vascular Bilateral Ultrasound 04/24/2024 9:38 AM BUYER RENTER Narrative 04/25/2024 1:31 PM BUYER RENTER Vascular & Vein Surgery [address] [place] [address] Lower Extremity Arterial Doppler Report Patient Name: MAADA GUEVARA A : 1950 Study Date: 04/24/2024 9:38:00 AM Gender: F Human Resources Leader: Sanjana Pool RVT Location: [facility] Ref Provider: SAMMY ROJAS ?Quality: Adequate Order Provider: SAMMY ROJAS ?? PROCEDURES: Arterial Report: Bilateral lower extremity arterial Doppler exam at rest. ?? INDICATIONS: BLE claudication. ?? HISTORY: Hypertension. Hyperlipidemia. Diabetic. ?? PREVIOUS STUDIES: No previous studies for comparison. ?? MEASUREMENTS: Right ?Value ? Left ? Value Rt Brachial Pressure ? 145 mmHg ?Lt Brachial Pressure ? 132 mmHg Rt Calf Pressure ? 57 mmHg ? Lt Calf Pressure ? 68 mmHg Rt DIANETICIST Pressure ?67 mmHg ? Lt DIANETICIST Pressure ?66 mmHg Rt DPA Pressure ?75 mmHg ? Lt DPA Pressure ?59 mmHg Rt 1st Digit Pressure ?41 mmHg ? Lt 1st Digit Pressure ?47 mmHg Rt Calf Index ?0.39 ?Lt Calf Index ?0.47 Rt PT BRANDIN Resting ?0.46 ?Lt PT BRANDIN Resting ?0.46 Rt DP BRANDIN Resting ?0.52 ?Lt DP BRANDIN Resting ?0.41 Rt Digit 1/Arm Index ? 0.28 ?Lt Digit 1/Arm Index ? 0.32 - ?? FINDINGS: Right Common Femoral Artery Analysis: The common femoral artery waveform is triphasic. Right Popliteal Artery Analysis: The popliteal waveform is triphasic. Right Posterior Tibial Artery Analysis: The posterior tibial waveform is monophasic. Right Anterior Tibial Artery Analysis: The anterior tibial waveform is monophasic. Right Digits: The right digit waveform is dampened. Left Common Femoral Artery Analysis: The common femoral artery waveform is multiphasic. Left Popliteal Artery Analysis: The popliteal waveform is multiphasic. Left Posterior Tibial Artery Analysis: The posterior tibial waveform is monophasic. Left Anterior Tibial Artery Analysis: The anterior tibial waveform is monophasic. Left Digits: The left digit waveform is dampened. ?? CONCLUSIONS: 1. Ankle-brachial index of 0.5-0.8 is consistent with claudication and a moderate occlusive arterial disease in the right lower extremity. 2. Ankle-brachial index of <0.5 is consistent with rest pain and severe arterial disease in the left lower extremity. 3. There is evidence of right leg arterial insufficiency at the level of posterior tibial and anterior tibial arteries. 4. There is evidence of left leg arterial insufficiency at the level of femoral-popliteal arteries. ?? ATTESTATION: I have reviewed and interpreted the pertinent images and measurements of this study. I attest to the conclusions in the final report that is provided above. Electronically Signed By: Sammy Rojas MD [facility] 2024-04-25 13:31:01 BUYER RENTER Procedure Note Sammy Rojas MD - 04/25/2024 Vascular & Vein Surgery [address] [place] [address] Lower Extremity Arterial Doppler Report Patient Name: AMADA GUEVARA A : 1950 Study Date: 04/24/2024 9:38:00 AM Gender: F Human Resources Leader: Sanjana Pool RVT Location: [facility] Provider: SAMMY ROJAS Quality: Adequate Order Provider: SAMMY ROJAS PROCEDURES: Arterial Report: Bilateral lower extremity arterial Doppler exam at rest. INDICATIONS: BLE claudication. HISTORY: Hypertension. Hyperlipidemia. Diabetic. PREVIOUS STUDIES: No previous studies for comparison. MEASUREMENTS: Right Value Left Value Rt Brachial Pressure 145 mmHg Lt Brachial Pressure 132 mmHg Rt Calf Pressure 57 mmHg Lt Calf Pressure 68 mmHg Rt DIANETICIST Pressure 67 mmHg Lt DIANETICIST Pressure 66 mmHg Rt DPA Pressure 75 mmHg Lt DPA Pressure 59 mmHg Rt 1st Digit Pressure 41 mmHg Lt 1st Digit Pressure 47 mmHg Rt Calf Index 0.39 Lt Calf Index 0.47 Rt PT BRANDIN Resting 0.46 Lt PT BRANDIN Resting 0.46 Rt DP BRANDIN Resting 0.52 Lt DP BRANDIN Resting 0.41 Rt Digit 1/Arm Index 0.28 Lt Digit 1/Arm Index 0.32 - FINDINGS: Right Common Femoral Artery Analysis: The common femoral artery waveform is triphasic. Right Popliteal Artery Analysis: The popliteal waveform is triphasic. Right Posterior Tibial Artery Analysis: The posterior tibial waveform is monophasic. Right Anterior Tibial Artery Analysis: The anterior tibial waveform is monophasic. Right Digits: The right digit waveform is dampened. Left Common Femoral Artery Analysis: The common femoral artery waveform is multiphasic. Left Popliteal Artery Analysis: The popliteal waveform is multiphasic. Left Posterior Tibial Artery Analysis: The posterior tibial waveform is monophasic. Left Anterior Tibial Artery Analysis: The anterior tibial waveform is monophasic. Left Digits: The left digit waveform is dampened. CONCLUSIONS: 1. Ankle-brachial index of 0.5-0.8 is consistent with claudication and amoderate occlusive arterial disease in the right lower extremity. 2. Ankle-brachial index of <0.5 is consistent with rest pain and severearterial disease in the left lower extremity. 3. There is evidence of right leg arterial insufficiency at the level ofposterior tibial and anterior tibial arteries. 4. There is evidence of left leg arterial insufficiency at the level offemoral-popliteal arteries. ATTESTATION: I have reviewed and interpreted the pertinent images and measurements ofthis study. I attest to the conclusions in the final report that is provided above. Electronically Signed By: Sammy Rojas MD [facility] 2024-04-25 13:31:01 BUYER RENTER Sammy Rojas MD [facility] PROCEDURES Final Result from Last 3 Months Insurance [facility] Advance Directives For more information, please contact: [phone] * Full Code (Latest Code Status on File) Date Activated Date Inactivated Comments 06/04/2024 8:15 AM 06/04/2024 5:59 PM Care Teams Discharge Door Operator Relationship Specialty Start Date End Date Eric Wen DO [address] [facility] [address] [place] [address] PCP - General Internal Medicine 04/05/24
--- OUTSIDE RECORDS SUMMARY | 2024-06-09 16:25 | XMS_ITS | Clinical Summary ---
Author Organization [facility] [address] Address [address] [place] [id number] Care Team Providers Care Sales And Marketing Agent Name Role Phone Eric Wen DO Primary Care Provider [phone] Allergies Active Allergy Reactions Criticality Noted Date [...] 500 mg capsule Take by mouth Active [id number] ic acid-biotin 66.7-1,000 mcg tablet Take by mouth Active Active Problems Problem Noted Date Diagnosed Date Atherosclerotic PVD with intermittent claudicati on 05/22/2024 PVD (peripheral vascular disease) 04/11/2024 Assessment & Plan (05/24/2024 10:29 AM CONE TRUCKER): Bilateral extremity severe occlusive disease with life-limiting [...] 04/11/2024 Assessment & Plan (05/24/2024 10:29 AM CONE TRUCKER): Stable continue losartan hydrochlorothiazide Assessment & Plan (04/11/2024 3:42 PM CDT): Impression: Chronic and stable. Plan: Continue Hyzaar Mixed hyperlipidemia 04/11/2024 Assessment & Plan (05/24/2024 10:29 AM CONE TRUCKER): Stable continue Crestor Assessment & Plan (04/11/2024 3:42 PM CDT): Impression: Chronic stable. Plan: Continue rosuvastatin. Type 2 diabetes mellitus wit hout complication, without long-term current use of insulin ([facility]) 04/11/2024 Assessment & Plan (04/11/2024 3:42 PM CDT): Impression: Chronic with good glucose control. Plan: Continue Farxiga Encounters Date Type Department Care Team Description 06/04/2024 7:30 AM CONE TRUCKER - 06/04/2024 8:30 AM CONE TRUCKER Surgery [facility] Cardiac Family Mediator [address] [place] [address] Sammy Rojas MD BILATERAL LOWER EXTREMITY ANGIOGRAM WITH POSSIBLE INTERVENTION AND WITH RIGHT GROIN ACCESS 06/04/2024 5:51 AM CONE TRUCKER - 06/04/2024 1:59 PM CONE TRUCKER Hospital Encounter [facility] Cardiac Family Mediator [address] [place] [address] Sammy Rojas MD Atherosclerotic PVD with intermittent claudication (HCC); Other disorder of circulatory system Discharge Disposition: Discharge to home or self care 05/22/2024 9:15 AM CONE TRUCKER Office Visit [facility] Vascular at [address] [phone] Sammy Rojas MD PVD (peripheral vascular disease) (HCC) (Primary Dx); Primary hypertension; Mixed hyperlipidemia 05/22/2024 Documentation [facility] Vascular and Vein Surgery [facility] [address] [phone] Haley Jenkins RN 04/24/2024 10:00 AM CONE TRUCKER Ancillary Procedure [facility] Medical [facility] Vascular and Vein Surgery at [address] [phone] PVD (peripheral vascular disease) (HCC) 04/10/2024 9:00 AM CDT Office Visit [facility] Vascular at [address] [phone] Cathy Jaffe NP PVD (peripheral vascular disease) (HCC) (Primary Dx); Mixed hyperlipidemia; Primary hypertension; Type 2 diabetes mellitus without complication, without long-term current use of insulin (CMS/HCC) (HCC) 04/10/2024 Orders Only [facility] Vascular at [address] [phone] Sammy Rojas MD PVD (peripheral vascular disease) (HCC) (Primary Dx) from Last 3 Months Surgical History Surgery Date Site/Laterality Comments REPLACEMENT TOTAL KNEE Left Medical History Medical History Date Comments Diabetes mellitus (HCC) Hypertension Hyperlipidemia Chronic kidney disease Social History Tobacco Use Types Packs/Day Years [...] on file Legal Sex Female 3:33 AM CONE TRUCKER Gender Identity Not on file Sexual Orientation Not on file Obstetrics History Last Filed Vital Signs Vital Sign Reading Time Taken Comments Blood Pressure 140/62 06/04/2024 1:40 PM CONE TRUCKER Pulse 53 06/04/2024 1:40 PM CONE TRUCKER Temperature 36.9 ??C (98.5 ??F) 06/04/2024 8:50 AM CS T Respiratory Rate 18 06/04/2024 1:40 PM CONE TRUCKER Oxygen Saturation 99% 06/04/2024 1:40 PM CONE TRUCKER Inhaled Oxygen Concentration - - Weight 107.3 kg (236 lb 8.9 oz) 06/04/2024 6:42 AM CONE TRUCKER Height 165.1 cm (5' 5 ) 05/22/2024 9:11 AM CONE TRUCKER Body Mass Index 39.36 05/22/2024 9:11 AM CONE TRUCKER Plan of Treatment Health Maintenance Due Date Last Done Comments Albumin Creatinine Ratio, Urine 1950 Breast Cancer Screening-Mammogram 1950 Colon Cancer Screening-Colonoscopy 1950 Depression Screening 1950 Hemoglobin A1C 1950 Hepatitis C Screening 1950 Osteoporosis Screening-Bone Density Scan 1950 Dilated Eye Exam 1950 Foot Exam 1950 Lipid Panel 1950 Hepatitis B Screening 1968 Well Visit 65+ 11/03/2015 Influenza Vaccine (#1) 2024 03/01/2023 Fall Risk Assessment 06/04/2025 06/04/2024 eGFR 06/04/2025 06/04/2024 DTaP/Tdap/Td Vaccine (2 - Td or Tdap) 12/28/203205/2023 Pneumococcal vaccine 65+ Completed 12/28/2022 Zoster Vaccine Completed 03/01/2023, 12/28/2022 Procedures Procedure Name Priority Date/Time Associated Diagnosis Comments POCT GLUCOSE DEVICE Routine 06/04/2024 8 :34 AM CONE TRUCKER PERIPHERAL RUN OFF CATH Routine 06/04/2024 7:58 AM CONE TRUCKER Atherosclerotic PVD with intermittent claudication (HCC) DIFFERENTIAL AUTO Routine 06/04/2024 7:0 0 AM CONE TRUCKER CBC WITH AUTO DIFFERENTIAL Routine 06/04/2024 7:00 AM CONE TRUCKER B ABO / RH CONFIRMATION TESTING STAT 06/04/2024 7:00 AM CONE TRUCKER EGFR Routine 06/04/2024 6:35 AM CONE TRUCKER Atherosclerotic PVD with intermittent claudication (HCC) ANTIBODY SCREEN Timed 06/04/2024 6:35 AM CONE TRUCKER Atherosclerotic PVD with intermittent claudication (HCC) ABO/RH Timed 06/04/2024 6:35 AM CONE TRUCKER Atherosclerotic PVD with intermittent claudication (HCC) PROTIME-INR Routine 06/04/2024 6:35 AM CONE TRUCKER Atherosclerotic PVD with intermittent claudication (HCC) TYPE AND SCREEN Timed 06/04/2024 6:35 AM CONE TRUCKER Atherosclerotic PVD with intermittent claudication (HCC) APTT Routine 06/04/2024 6:35 AM CONE TRUCKER Atherosclerotic PVD with intermittent claudication (HCC) Other disorder of circulatory system BASIC METABOLIC PANEL Routine 06/04/2024 6:35 AM CONE TRUCKER Atherosclerotic PVD with intermittent claudication (HCC) US ARTERIAL DOPPLER LOWER EXTREMITY BILATERAL Schedule Routine, Read Routine (OP Routine) 04/24/2024 10:33 AM CONE TRUCKER PVD (peripheral vascular disease) (HCC) from Last 3 Months Results * (ABNORMAL) POCT glucose (06/04/2024 8:34 AM CONE TRUCKER) Pathologist [facility] Glucose, POC 227(H) 70 - 199 mg/dL Blood 06/04/2024 8:34 AM CONE TRUCKER 06/04/2024 8:34 AM CONE TRUCKER Sammy Rojas MD LAB POCT ORDERABLES - DEVICE Fin al Result [facility] Department [place] [address] * PERIPHERAL RUN OFF CATH (06/04/2024 7:58 AM CONE TRUCKER) Anatomical Region Laterality Modality X-Ray Angiograph y Narrative 06/04/2024 8:02 AM CONE TRUCKER Please see OpNote for result. Sammy Rojas MD CV CARDIAC CATH PROCEDURES Final Result * Differential, auto (06/04/2024 7:00 AM CONE TRUCKER) Pathologist [facility] Neutrophil abs 5.2 1.5 - 6.5 K/cumm Imm gran abs 0.0 0.0 - 0.1 K/cumm [facility] Lymphocyte abs 1.5 0.8 - 3.3 K/cumm [facility] Monocyte abs 0.6 0.2 - 0.8 K/cumm [facility] Eosinophil abs 0.2 0.0 - 0.5 K/cumm [facility] Basophil abs 0.1 0.0 - 0.1 K/cumm [facility] Neutrophil pct 69.1 % [facility] Comment: Interpretive Data Percent cell count reference ranges are not reported, since discordance with absolute values may lead to misinterpretation of CBC data. Current Interpretive Data was last revised on 2017. Imm gran pct 0.1 % [facility] Comment: Interpretive Data Percent cell count reference ranges are not reported, since discordance with absolute values may lead to misinterpretation of CBC data. Current Interpretive Data was last revised on 2017. Lymphocyte pct 20.1 % [facility] Comment: Interpretive Data Percent cell count reference ranges are not reported, since discordance with absolute values may lead to misinterpretation of CBC data. Current Interpretive Data was last revised on 2017. Monocyte pct 7.8 % [facility] Comment: Interpretive Data Percent cell count reference ranges are not reported, since discordance with absolute values may lead to misinterpretation of CBC data. Current Interpretive Data was last revised on 2017. Eosinophil pct 2.1 % [facility] Comment: Interpretive Data Percent cell count reference ranges are not reported, since discordance with absolute values may lead to misinterpretation of CBC data. Current Interpretive Data was last revised on 2017. Basophil pct 0.8 % [facility] Comment: Interpretive Data Percent cell count reference ranges are not reported, since discordance with absolute values may lead to misinterpretation of CBC data. Current Interpretive Data was last revised on 2017. Blood 06/04/2024 7:00 AM CONE TRUCKER 06/04/2024 7:02 AM CONE TRUCKER Sammy Rojas MD LAB BLOOD ORDERABLES Final Resul t Performing Organization Address City/[facility] Co de Phone Number [address] [place] [address] * ABO / Rh Confirmation Testing (06/04/2024 7:00 AM CONE TRUCKER) [facility] ABO/Rh Confirmation A Negative [facility] Blood 06/04/2024 7:00 AM CONE TRUCKER 06/04/2024 7:03 AM CONE TRUCKER Sammy Rojas MD LAB BLOOD ORDERABLES Final Resul t Performing Organization Address City/[facility] Co de Phone Number [address] [place] [address] [facility] * CBC with auto differential (06/04/2024 7:00 AM CONE TRUCKER) [facility] WBC 7.5 3.8 - 9.9 K/cumm Hgb 13.4 11.9 - 15.5 g/dL [facility] Hct 40.0 35.6 - 45.5 % [facility] Plt 222 150 - 400 K/cumm [facility] MPV 10.6 9.1 - 12.[address] [facility] RBC 4.54 3.90 - 5.20 M/cumm [facility] MCV 88.1 81.3 - 96.[address] [facility] MCH 29.5 27.1 - 33.[address] [facility] MCHC 33.5 32.3 - 35.7 g/dL [facility] RDW CV 12.8 11.1 - 14.9 % [facility] RDW SD 41.2 35.7 - 48.[address] [facility] NRBC abs 0.00 0.00 - 0.01 K/cumm [facility] Blood 06/04/2024 7:00 AM CONE TRUCKER 06/04/2024 7:02 AM CONE TRUCKER us Sammy Rojas MD LAB BLOOD ORDERABLES Final Resul t [facility] [address] [facility] Department [place] [address] * (ABNORMAL) eGFR (06/04/2024 6:35 AM CONE TRUCKER) [facility] eGFR 32(L) >=60 mL/min/1. 73 m2 Comment: [...] last reviewed 2021. Blood 06/04/2024 6:35 AM CONE TRUCKER 06/04/2024 6:39 AM CONE TRUCKER Sammy Rojas MD LAB BLOOD ORDERABLES Final Resul t Performing Organization Address [facility] de Phone Number [address] [place] [address] * ABO/Rh (06/04/2024 6:35 AM CONE TRUCKER) ABO/Rh A Negative Blood 06/04/2024 6:35 AM CONE TRUCKER 06/04/2024 6:39 AM CONE TRUCKER Narrative [facility] - 06/04/2024 7:17 AM CONE TRUCKER Has the patient had Daratumumab or Isatuximab in the past 6 months?->Unknown Sammy Rojas MD LAB BLOOD BANK TEST ORDERABLES F inal Result Performing Organization Address [facility] Co de Phone Number [address] [place] [address] * aPTT (06/04/2024 6:35 AM CONE TRUCKER) aPTT 24 22 - 37 sec Comment: Interpretive data aPTT test has not been evaluated for monitoring heparin therapy. The anti-Xa is the preferred test. Current interpretive data was last revised on 2019. Blood 06/04/2024 6:35 AM CONE TRUCKER 06/04/2024 6:39 AM CONE TRUCKER Sammy Rojas MD LAB BLOOD ORDERABLES Final Resul t Performing Organization Address [facility] Co de Phone Number [address] [place] [address] * Protime-INR (06/04/2024 6:35 AM CONE TRUCKER) PT 13.8 12.0 - 14.6 sec INR 1.0 0.9 - 1.2 [facility] Comment: Ref Range High Interpretive data Oral anticoagulant therapeutic ranges: Venous thromboembolism prophylaxis or treatment: 2.0-3.0 CARDIOLOGY Standard range: 2.0-3.0 High-intensity range: 2.5-3.5 Refer to indication-specific guidelines for appropriate target ranges for prosthetic heart valve replacement. Current interpretive data was last revised on 2019. Blood 06/04/2024 6:35 AM CONE TRUCKER 06/04/2024 6:39 AM CONE TRUCKER Sammy Rojas MD LAB BLOOD ORDERABLES Final Resul t Performing Organization Address [facility] de Phone Number [address] [address] * Antibody screen (06/04/2024 6:35 AM CONE TRUCKER) Goran, indirect, Gel Interpretation Negative ABSC Blood 06/04/2024 6:35 AM CONE TRUCKER 06/04/2024 6:39 AM CONE TRUCKER Narrative [facility] - 06/04/2024 7:17 AM CONE TRUCKER Has the patient had Daratumumab or Isatuximab in the past 6 months?->Unknown Sammy Rojas MD LAB BLOOD BANK TEST ORDERABLES F inal Result Performing Organization Address City/[facility] Co de Phone Number [place] [address] [place] [address] * (ABNORMAL) Basic metabolic panel (06/04/2024 6:35 AM CONE TRUCKER) Pathologist [facility] Sodium 136 135 - 145 mmol/L Potassium, pl 3.4 3.3 - 4.9 mmol/L [facility] Comment:Hemolyzed; Potassium value may be falsely elevated by as much as 1.0 mmol/L. Suggest redraw and reanalysis. Chloride 99 97 - 110 mmol/L [facility] CO2 25 22 - 32 mmol/L [facility] Anion gap 12 2 - 15 mmol/L [facility] BUN 22 6 - 25 mg/dL [facility] Creatinine 1.68(H) 0.60 - 1.10 mg/dL [facility] Glucose 277(H) 70 - 199 mg/dL [facility] Comment: Interpretive Data Fasting glucose >/= 126 [...] classification and Diagnosis of Diabetes Diabetes Care 2021; 46: S19-S40. Current interpretive data was last revised 2022. Calcium 8.9 8.5 - 10.3 mg/dL [facility] Blood 06/04/2024 6:35 AM CONE TRUCKER 06/04/2024 6:39 AM CONE TRUCKER us Sammy Rojas MD LAB BLOOD ORDERABLES Final Resul t [facility] [address] [facility] Department [place] [address] * US Arterial Doppler Lower Extremity Bilateral (04/24/2024 10:33 AM CONE TRUCKER) Anatomical Region Laterality Modality Vascular Bilateral Ultrasound 04/24/2024 9:38 AM CONE TRUCKER Narrative 04/25/2024 1:31 PM CONE TRUCKER Vascular & Vein Surgery [address] [place] [address] Lower Extremity Arterial Doppler Report Patient Name: AMADA GUEVARA A : 1950 Study Date: 04/24/2024 9:38:00 AM Gender: F Auditor In Charge: Sanjana Pool RVT Location: VVSE Ref Provider: [...] Lt Calf Pressure ? 68 mmHg Rt VERTICAL BORER Pressure ?67 mmHg ? Lt VERTICAL BORER Pressure ?66 mmHg Rt DPA Pressure ?75 [...] above. Electronically Signed By: Sammy Rojas MD [facility] 2024-04-25 13:31:01 CONE TRUCKER Procedure Note Sammy Rojas MD - 04/25/2024 Vascular & Vein Surgery [address] [place] [address] Lower Extremity Arterial Doppler Report Patient Name: AMADA GUEVARA A : 1950 Study Date: 04/24/2024 9:38:00 AM Gender: F Auditor In Charge: Sanjana Pool RVT Location: VVSE Ref Provider: SAMMY ROJAS Quality: Adequate Order Provider: SAMMY ROJAS PROCEDURES: Arterial Report: Bilateral lower extremity arterial Doppler exam at rest. INDICATIONS: BLE claudication. HISTORY: Hypertension. Hyperlipidemia. Diabetic. PREVIOUS STUDIES: No previous studies for comparison. MEASUREMENTS: Right Value Left Value Rt Brachial Pressure 145 mmHg Lt Brachial Pressure 132 mmHg Rt Calf Pressure 57 mmHg Lt Calf Pressure 68 mmHg Rt VERTICAL BORER Pressure 67 mmHg Lt VERTICAL BORER Pressure 66 mmHg Rt DPA Pressure 75 [...] above. Electronically Signed By: Sammy Rojas MD [facility] 2024-04-25 13:31:01 CONE TRUCKER Sammy Rojas MD [facility] PROCEDURES Final Result from Last 3 Months Insurance [facility] Advance Directives For more information, please contact: [phone] * Full Code (Latest Code Status on File) Date Activated Date Inactivated Comments 06/04/2024 8:15 AM 06/04/2024 5:59 PM Care Teams Sales And Marketing Agent Relationship Specialty Start Date End Date Eric Wen DO [address] [facility] [place] [address] [place] [address] PCP - General Internal Medicine 04/05/24
--- OUTSIDE RECORDS SUMMARY | 2024-06-09 16:25 | XMS_ITS | Encounter Summary ---
Author Organization [facility] Healthcare Address [address] [place] [address] Care Team Providers Care Chief Radiology Name Role Phone Eric Wen DO Primary Care Provider [phone] Encounter Details Date Type Department Care Team (Late st Contact Info) Description 05/22/2024 Documentation [facility] Vascular and Vein Surgery [address] [facility] [address] [place] [phone] Haley Jenkins, RN Social History Tobacco Use Types Packs/Day Years Used Date Smoking Tobacco: Never Assessed Comments Unknown Sex and Gender Information Value Date Recorded Sex Assigned at Not on file Legal Sex Female 3:33 AM PROCUREMENT MANAGER Gender Identity Not on file Sexual Orientation Not on file documented as of this encounter Progress Notes * Haley Jenkins, RN - 05/22/2024 4:19 PM CST RN called and LVM for patient to call the office back to discuss procedure date and details 05/23/24 RN called and spoke with the patient in regards to upcoming procedure scheduled on 06/04/24 at 0730am and will need to arrive to OPS at 0600am. NPO starting at midnight. Patient has been made aware MAXIMILIANO Woodward will be calling to discuss pre-screening details. POST OP EDW 06/26/24 at 1030 Patient is not diabetic Patient stated she understood the instructions and will call the office with any questions or concerns. UREMENT MANAGER UREMENT MANAGER documented in this encounter Plan of Treatment Not on file documented as of this encounter Visit Diagnoses Not on filedocumented in this encounter Care Teams Chief Radiology Relationship Specialty Start Date End Date Eric Wen DO [address] [facility] [address] [place] [address] PCP - General Internal Medicine 04/05/24 documented as of this encounter
--- OUTSIDE RECORDS SUMMARY | 2024-06-09 16:25 | XMS_ITS | Encounter Summary ---
Author Organization [facility] Healthcare Address [address] [place] [address] Care Team Providers Care School Psychology Professor Name Role Phone Eric Wen DO Primary Care Provider [phone] Reason for Visit * Reason Comments Follow-up 6 WK F/U - B/L PVD Encounter Details Date Type Department Care Team (Late st Contact Info) Description 05/22/2024 9:15 AM BOOK REVIEWER Office Visit [facility] Medical Group Vascular at [address] [place] [address] Ko Rojas MD [address] [place] [address] [address] PVD (peripheral vascular disease) (HCC) (Primary Dx); Primary hypertension; Mixed hyperlipidemia Social History Tobacco Use Types Packs/Day Years Used Date Smoking Tobacco: Unknown Tobacco Cessation:Counseling Given: Not Answered Comments Unknown Sex and Gender Information Value Date Recorded Sex Assigned at Not on file Legal Sex Female 3:33 AM BOOK REVIEWER Gender Identity Not on file Sexual Orientation Not on file documented as of this encounter Last Filed Vital Signs Vital Sign Reading Time Taken Comments Blood Pressure 137/82 05/22/2024 9:11 AM BOOK REVIEWER Pulse 91 05/22/2024 9:11 AM BOOK REVIEWER Temperature - - Respiratory Rate - - Oxygen Saturation 96% 05/22/2024 9:11 AM BOOK REVIEWER Inhaled Oxygen Concentration - - Weight 109.8 kg (242 lb) 05/22/2024 9:11 AM BOOK REVIEWER Height 165.1 cm (5' 5 ) 05/22/2024 9:11 AM BOOK REVIEWER Body Mass Index 40.27 05/22/2024 9:11 AM BOOK REVIEWER documented in this encounter Progress Notes * Ko Rojas MD - 05/22/2024 9:15 AM CST Images from the original note were not included. [facility] [place] Patient ID: Amada Dooley is a 73 y.o. female Visit Date: 05/22/2024 Chief Complaint Chief Complaint Patient presents with Follow-up 6 WK F/U - B/L PVD HPI Amada Dooley is a 73 y.o. female w/ a history of HTN, HLD DM and obesity seen in the office for further evaluation of lower extremity peripheral vascular disease. Gets life-limiting claudication to bilateral lower extremities in the calves predominantly right greater than left. She denies any rest pain or wounds. Antiplatelets/Anticoagulants (and reason): - ASA Previous vascular surgery interventions, including date (surgery, angio,etc): - none Past medical history: Hypertension hyperlipidemia diabetes Past surgical history: None Family history: Hypertension Social History Tobacco Use Smoking status: Unknown Smokeless tobacco: None Substance and Sexual Activity Drug use: None Sexual activity: None Alcohol Use: Not on file ROS Constitutional: No change in appetite. No recent weight loss. No fevers chills or sweats. HEENT: No trouble swallowing. No tinnitus. Eyes: No visual disturbances Respiratory: No shortness of breath. No cough or sputum production. No wheezing. Cardiovascular: No chest pain. No palpitations. Gastrointestinal: No abdominal pain. No nausea vomiting or diarrhea. Genitourinary: No dysuria. No hematuria. Extremities: No claudication. No rest pain. No lower extremity ulcerations or infections. No significant edema. Musculoskeletal: No joint pains. No back pain. Neurologic: No dizziness. No syncope. No weakness. Skin: No rashes. No discoloration. Hematologic: no bleeding Psychiatric: no anxiety, no behavioral changes, no mood swings PE Constitutional: Alert and oriented HEENT: Head atraumatic and normocephalic Neck is supple No carotid bruits Extraocular movements full, sclerae anicteric Chest: Effort normal. Breath sounds normal. Cardiovascular: S1 and S2 are normal. No murmurs rubs or gallops appreciated. Abdominal: Soft, nontender, no masses. Extremities/Vascular: Bilateral extremities are warm. No palpable pulses. Musculoskeletal: Normal range of motion. Neurologic: Cranial nerves 2-12 intact. Strength and sensation intact bilaterally. Skin: Warm and dry. No rashes. No discoloration. Psychiatric: Normal mood and affect. Behavior normal. Judgment normal. IMAGING STUDIES I reviewed interpreted extremity arterial Doppler which showed severe occlusive disease bilaterally. Diagnoses and all orders for this visit: PVD (peripheral vascular disease) (HCC) (Primary) Assessment & Plan: Bilateral extremity severe occlusive disease with life-limiting claudication. Risks benefits alternatives to lower extremity angiography with possible intervention discussed, risks including bleeding, infection, perforation, contrast induced nephropathy, dissection, thrombosis, distal embolization and need further surgery. She wished proceed. Primary hypertension Assessment & Plan: Stable continue losartan hydrochlorothiazide Mixed hyperlipidemia Assessment & Plan: Stable continue Crestor MD Ko Hurst MD This note was generated in part or in whole with voice recognition software. Voice recognition is usually quite accurate but there are geographic analyst errors that can and often occur. All attempts weremade to correct these errors. I apologize for any typographical errors that were not detected and corrected. REVIEWER documented in this encounter Miscellaneous Notes * Assessment & Plan Note - Ko Rojas MD - 05/24/2024 10:29 AM CSTAssociated Problem(s): Mixed hyperlipidemia Stable continue Crestor REVIEWER * Assessment & Plan Note - Ko Rojas MD - 05/24/2024 10:29 AM CSTAssociated Problem(s): Primary hypertension Stable continue losartan hydrochlorothiazide REVIEWER * Assessment & Plan Note - Ko Rojas MD - 05/24/2024 10:29 AM CSTAssociated Problem(s): PVD (peripheral vascular disease) ([facility]) Bilateral extremity severe occlusive disease with life-limiting claudication. Risks benefits alternatives to lower extremity angiography with possible intervention discussed, risks including bleeding, infection, perforation, contrast induced nephropathy, dissection, thrombosis, distal embolization and need further surgery. She wished proceed. REVIEWER documented in this encounter Plan of Treatment Not on file documented as of this encounter Visit Diagnoses Diagnosis PVD (peripheral vascular disease) (HCC)- Primary Unspecified peripheral vascular disease Primary hypertension Unspecified essential hypertension Mixed hyperlipidemia documented in this encounter Historical Medications * This list may reflect changes made after this encounter. [id number] c acid-biotin 66.7-1,000 mcg tablet Take by mouth turmeric root extract 500 mg capsule Take by mouth cyclobenzaprine (FLEXERIL) 10 mg tablet Take 1 tablet (10 mg total) by mouth 3 (three) times a day as needed for muscle spasms added in this encounter Care Teams School Psychology Professor Relationship Specialty Start Date End Date Eric Wen DO [address] [address] PCP - General Internal Medicine 04/05/24 documented as of this encounter
--- OUTSIDE RECORDS SUMMARY | 2024-06-09 16:26 | XMS_ITS | Encounter Summary ---
Author Organization [facility] Healthcare Address [address] [place] [address] Care Team Providers Care Merchandiser Seasonal Name Role Phone Bettye, Eric Primary Care Provider [phone] Reason for Visit * Diagnostic Imaging (Routine) - Closed Specialty Diagnoses / Procedures Referred By Contac t Referred To Contact Diagnoses PVD (peripheral vascular disease) (HCC) Procedures US Arterial Doppler Lower Extremity Bilateral Sammy Rojas MD [address] [place] [address] Phone: tel: fax: [facility] Medical Group Vascular and Vein Surgery at [address] [address] Phone: tel: fax: Referral ID Status Reason Start Date Expiration Date Visits Re quested Visits Authorized [id number] Closed 04/10/2024 05/10/2025 1 1 Encounter Details Date Type Department Care Team (Latest Contact Info) Description 04/24/2024 10:00 AM EXERCISE PHYSIOLOGIST CERTIFIED Ancillary Procedure [facility] Medical Group Vascular and Vein Surgery at [address] [address] PVD (peripheral vascular disease) (HCC) Social History Tobacco Use Types Packs/Day Years Used Date Smoking Tobacco: Never Assessed Comments Unknown Sex and Gender Information Value Date Recorded Sex Assigned at Not on file Legal Sex Female 3:33 AM EXERCISE PHYSIOLOGIST CERTIFIED Gender Identity Not on file Sexual Orientation Not on file documented as of this encounter Plan of Treatment Not on file documented as of this encounter Procedures Procedure Name Priority Date/Time Associated Diagnosis Comments US ARTERIAL DOPPLER LOWER EXTREMITY BILATERAL Schedule Routine, Read Routine (OP Routine) 04/24/2024 10:33 AM EXERCISE PHYSIOLOGIST CERTIFIED PVD (peripheral vascular disease) (HCC) documented in this encounter Results * US Arterial Doppler Lower Extremity Bilateral (04/24/2024 10:33 AM EXERCISE PHYSIOLOGIST CERTIFIED) Anatomical Region Laterality Modality Vascular Bilateral Ultrasound 04/24/2024 9:38 AM EXERCISE PHYSIOLOGIST CERTIFIED Narrative 04/25/2024 1:31 PM EXERCISE PHYSIOLOGIST CERTIFIED Vascular & Vein Surgery [address] [place] [address]. [place] [address] Lower Extremity Arterial Doppler Report Patient Name: AMADA GUEVARA A : 1950 Study Date: 04/24/2024 9:38:00 AM Gender: F Disaster Response Director: Sanjana Pool RVT Location: [facility] Ref Provider: [...] Lt Calf Pressure ? 68 mmHg Rt TALKBACK HOST Pressure ?67 mmHg ? Lt TALKBACK HOST Pressure ?66 mmHg Rt DPA Pressure ?75 [...] above. Electronically Signed By: Sammy Rojas MD [facility] 2024-04-25 13:31:01 EXERCISE PHYSIOLOGIST CERTIFIED Procedure Note Sammy Rojas MD - 04/25/2024 Vascular & Vein Surgery [address] [place] [address] Lower Extremity Arterial Doppler Report Patient Name: AMADA GUEVARA A : 1950 Study Date: 04/24/2024 9:38:00 AM Gender: F Disaster Response Director: Sanjana Pool RVT Location: [facility] Ref Provider: [...] mmHg Lt Calf Pressure 68 mmHg Rt TALKBACK HOST Pressure 67 mmHg Lt TALKBACK HOST Pressure 66 mmHg Rt DPA Pressure 75 [...] that is provided above. Electronically Signed By: MD MELANIE Hurst 2024-04-25 13:31:01 EXERCISE PHYSIOLOGIST CERTIFIED Sammy Rojas MD [facility] US PROCEDURES Final Result documented in this encounter Visit Diagnoses Diagnosis PVD (peripheral vascular disease) (HCC) Unspecified peripheral vascular disease documented in this encounter Care Teams Merchandiser Seasonal Relationship Specialty Start Date End Date Eric Wen DO [address] [facility] [address] [place], [place] [id number] PCP - General Internal Medicine 04/05/24 documented as of this encounter
--- OUTSIDE RECORDS SUMMARY | 2024-06-09 16:27 | XMS_ITS | Clinical Summary ---
Author Organization [facility] Address [address] [place] [address] Phone Care Team Providers Care Cast Associate Name Role Phone Unavailable Primary Care Provider Unavailabl e Social History Tobacco Use Types Packs/Day Years Used Date Smoking Tobacco: Never Assessed Sex and Gender Information Value Date Recorded Sex Assigned at Not on file Gender Identity Not on file Sexual Orientation Not on file Plan of Treatment Health Maintenance Due Date Last Done Comments DTAP/TDAP/TD VACCINES (1 - Tdap) 1969 BREAST CANCER SCREENING 1990 COLORECTAL SCREENING 11/03/1995 Colorectal Cancer Screening 11/03/1995 FIT-DNA Q 3 years 11/03/1995 FIT/FOBT Q 1 year 11/03/1995 Flex Sig/CT Colonography Q 5 years 11/03/1995 ZOSTER VACCINE (1 of 2) 2000 OSTEOPOROSIS SCREENING 11/03/2015 PNEUMOCOCCAL VACCINE 65+ YEARS (1 of 1 - PCV) 11/03/19 16 INFLUENZA VACCINE (#1) 2024 RSV VACCINE (60+ or ) (1 - 1-dose 75+ series) 2025
--- OUTSIDE RECORDS SUMMARY | 2024-06-09 16:27 | XMS_ITS | Encounter Summary ---
Author Organization [facility] Address [address] [place] [address] Care Team Providers Care Loom Doffer Name Role Phone Unavailable Primary Care Provider Unavailabl e Reason for Visit * Reason Onset Date Comments Case Management 03/31/2017 Josué Encounter Details Date Type Department Care Team (Late st Contact Info) Description 03/31/2017 Patient Outreach [facility] Outpatient Care Management - [place] [address] [place] [address] Myrna Lawrence RN Case Management (Josué) Social History Tobacco Use Types Packs/Day Years Used Date Smoking Tobacco: Never Assessed Sex and Gender Information Value Date Recorded Sex Assigned at Not on file Gender Identity Not on file Sexual Orientation Not on file documented as of this encounter Miscellaneous Notes * Telephone Encounter - Myrna Lawrence RN - 03/31/2017 2:16 PM CDT Call placed to member regarding recent ED visit. Left message to call CM and contact numbers. Nadia Lawrence RN Case Manager [facility] Care Management documented in this encounter Plan of Treatment Not on file documented as of this encounter Visit Diagnoses Not on filedocumented in this encounter
--- OUTSIDE RECORDS SUMMARY | 2024-06-09 16:27 | XMS_ITS | Encounter Summary ---
Author Organization [facility] Healthcare Address [address] [place] [address] Care Team Providers Care Television And Radio Repairer Name Role Phone Eric Wen Primary Care Provider [phone] Reason for Referral * Diagnostic Imaging (Routine) - Closed Specialty Diagnoses / Procedures Referred By Contac t Referred To Contact Diagnoses PVD (peripheral vascular disease) (HCC) Procedures US Arterial Doppler Lower Extremity Bilateral Sammy Rojas MD [address] [place] [address] Phone: tel: fax: [facility] Medical Group Vascular and Vein Surgery at [address] [address] Phone: tel: fax: Referral ID Status Reason Start Date Expiration Date Visits Re quested Visits Authorized [id number] Closed 04/10/2024 05/10/2025 1 1 Encounter Details Date Type Department Care Team (Late st Contact Info) Description 04/10/2024 Orders Only [facility] Medical Group Vascular at [address] [address] Sammy Rojas MD [address] [place] [address] PVD (peripheral vascular disease) (HCC) (Primary Dx) Social History Tobacco Use Types Packs/Day Years Used Date Smoking Tobacco: Never Assessed Comments Unknown Sex and Gender Information Value Date Recorded Sex Assigned at Not on file Legal Sex Female 3:33 AM GOVERNMENT SALES MANAGER Gender Identity Not on file Sexual Orientation Not on file documented as of this encounter Plan of Treatment Not on file documented as of this encounter Results * US Arterial Doppler Lower Extremity Bilateral (04/24/2024 10:33 AM GOVERNMENT SALES MANAGER) Anatomical Region Laterality Modality Vascular Bilateral Ultrasound 04/24/2024 9:38 AM GOVERNMENT SALES MANAGER Narrative 04/25/2024 1:31 PM GOVERNMENT SALES MANAGER Vascular & Vein Surgery [address] [place] [address] Lower Extremity Arterial Doppler Report Patient Name: AMADA GUEVARA A : 1950 Study Date: 04/24/2024 9:38:00 AM Gender: F Deposit Clerk: Sanjana Pool RVShari Location: [facility]SE Ref Provider: SAMMY ROJAS ?Quality: [...] Lt Calf Pressure ? 68 mmHg Rt WELT BUTTER HAND Pressure ?67 mmHg ? Lt WELT BUTTER HAND Pressure ?66 mmHg Rt DPA Pressure ?75 [...] above. Electronically Signed By: Sammy Rojas MD [facility] 2024-04-25 13:31:01 GOVERNMENT SALES MANAGER Procedure Note Sammy Rojas MD - 04/25/2024 Vascular & Vein Surgery [address] [place] [address] Lower Extremity Arterial Doppler Report Patient Name: AMADA GUEVARA A : 1950 Study Date: 04/24/2024 9:38:00 AM Gender: F Deposit Clerk: Sanjana Pool RVT Location: [facility] Ref Provider: [...] mmHg Lt Calf Pressure 68 mmHg Rt WELT BUTTER HAND Pressure 67 mmHg Lt WELT BUTTER HAND Pressure 66 mmHg Rt DPA Pressure 75 [...] Signed By: MD MELANIE Hurst 2024-04-25 13:31:01 GOVERNMENT SALES MANAGER Sammy Rojas MD [facility] [place] PROCEDURES Final Result documented in this encounter Visit Diagnoses Diagnosis PVD (peripheral vascular disease) (HCC)- Primary Unspecified peripheral vascular disease PVD (peripheral vascular disease) (HCC) Unspecified peripheral vascular disease documented in this encounter Care Teams Television And Radio Repairer Relationship Specialty Start Date End Date Eric Wen DO [address] [place] [address] PCP - General Internal Medicine 04/05/24 documented as of this encounter
--- OUTSIDE RECORDS SUMMARY | 2024-06-09 16:27 | XMS_ITS | Encounter Summary ---
Author Organization [facility] Healthcare Address [address] [place] [id number] Care Team Providers Care Machine Stripper Cutter Name Role Phone Eric Wen DO Primary Care Provider [phone] Reason for Visit * Reason Comments New Patient PVD, NO IMAGING Encounter Details Date Type Department Care Team (Late st Contact Info) Description 04/10/2024 9:00 AM CDT Office Visit [facility] at [address] [place] [id number] Cathy Jaffe, TUBERCULOSIS SPECIALIST [address] [address] PVD (peripheral vascular disease) (HCC) (Primary Dx); Mixed hyperlipidemia; Primary hypertension; Type 2 diabetes mellitus without complication, without long-term current use of insulin (CMS/HCC) (HCC) Social History Tobacco Use Types Packs/Day Years Used Date Smoking Tobacco: Never Assessed Comments Unknown Sex and Gender Information Value Date Recorded Sex Assigned at Not on file Legal Sex Female 3:33 AM PROFESSOR OF VEGETABLE SCIENCE Gender Identity Not on file Sexual Orientation Not on file documented as of this encounter Last Filed Vital Signs Vital Sign Reading Time Taken Comments Blood Pressure 151/88 04/10/2024 9:06 AM CDT Pulse 78 04/10/2024 9:06 AM CDT Temperature - - Respiratory Rate - - Oxygen Saturation 96% 04/10/2024 9:06 AM CDT Inhaled Oxygen Concentration - - Weight 109.8 kg (242 lb) 04/10/2024 9:06 AM CDT Height 165.1 cm (5' 5 ) 04/10/2024 9:06 AM CDT Body Mass Index 40.27 04/10/2024 9:06 AM CDT documented in this encounter Progress Notes * Cathy Jaffe, TUBERCULOSIS SPECIALIST - 04/10/2024 9:00 AM CDT Images from the original note were not included. Subjective/Objective Patient ID: Amada Dooley is a 73 y.o. female. Chief Complaint New Patient (PVD, NO IMAGING) History of Present Illness The patient is a 73 y.o. female with a history of diabetes mellitus, hypertension, hyperlipidemia, and obesity who presents today for further evaluation of PVD. Patient complains of who calf claudication to bilateral lower extremities with her right lower extremity worse than left. Patient also hasa history of scoliosis and lumbar stenosis does complain of constant discomfort to her lower extremities with prolonged standing and sitting with occasional neurogenic claudication. Patient is compliant with her daily medication therapy. She has no other concerns at this time. Antiplatelets/Anticoagulants (and reason): - none Previous vascular surgery interventions, including date (surgery, angio,etc): None Current Outpatient Medications: dapagliflozin propanediol (FARXIGA) 10 mg tablet, 1 tablet (10 mg total), Disp: , Rfl: escitalopram (LEXAPRO) 10 mg tablet, Take 1 tablet (10 mg total) by mouth daily, Disp: , Rfl: losartan-hydrochlorothiazide (HYZAAR) 100-25 mg per tablet, Take 1 tablet by mouth daily, Disp: , Rfl: meclizine (ANTIVERT) 25 mg tablet, Take 1 tablet (25 mg total) by mouth 3 (three) times a day as needed for dizziness, Disp: , Rfl: pantoprazole DR (PROTONIX) 40 mg EC tablet, Take 1 tablet (40 mg total) by mouth daily, Disp: , Rfl: rosuvastatin (CRESTOR) 5 mg tablet, Take 1 tablet (5 mg total) by mouth daily, Disp: , Rfl: zolpidem (AMBIEN) 10 mg tablet, Take 1 tablet (10 mg total) by mouth nightly as needed for sleep, Disp: , Rfl: Allergies Allergen Reactions Compazine [Prochlorperazine] Itching No past medical history on file. History reviewed. No pertinent surgical history. No family history on file. Social History Tobacco Use Smoking status: None Smokeless tobacco: None Substance and Sexual Activity Drug use: None Sexual activity: None Alcohol Use: Not on file ROS Constitutional: Negative for activity change, chills, diaphoresis and fever. Eyes: No visual disturbances. ENT: Negative for sore throat, tooth ache, ear ache. Respiratory: Negative for cough and shortness of breath. Cardiovascular: Negative for chest pain, palpitations and leg swelling. Gastrointestinal: Negative for abdominal pain, constipation, diarrhea, nausea and vomiting. Genitourinary: Negative for flank pain. Musculoskeletal: Negative for arthralgias, back pain, edema. Skin: Negative for wounds or ulcerations Neurological: Negative for dizziness, syncope, facial asymmetry and speech difficulty. PE Constitutional: Patient is oriented to person, place, and time. Pateint appears well-developed and well-nourished. No distress. Head: Normocephalic and atraumatic. Neck: Normal range of motion. Neck supple. Carotid bruit is not present. Cardiovascular: Normal rate and regular rhythm. Pulmonary/Chest: Effort normal and breath sounds normal. No accessory muscle usage. Abdominal: Soft. Bowel sounds are normal. Patient exhibits no distension and no mass. There is no tenderness. Extremities: Bilateral lower extremities are warm, well perfused. Audible signals are noted to bilateral dorsalis pedis pulses. Neurological: Cranial nerves 2-12 intact. Strength and sensation intactbilaterally. Skin: Warm and dry. No rashes. No discoloration. Psychiatric: Appropriate mood and affect. Diagnostic Imaging None Assessment/Plan Diagnoses and all orders for this visit: PVD (peripheral vascular disease) ([facility]) (I73.9) (Primary) Assessment & Plan: Impression: Patient complain of symptoms of claudication [...] and return in 2-3 weeks for re-evaluation. Mixed hyperlipidemia (E78.2) Assessment & Plan: Impression: Chronic stable. Plan: Continue rosuvastatin. Primary hypertension (I10) Assessment & Plan: Impression: Chronic and stable. Plan: Continue Hyzaar Type 2 diabetes mellitus without complication, without long-term current use of insulin (CMS/[facility]) (HCC) (E11.9) Assessment & Plan: Impression: Chronic with good glucose control. Plan: Continue Farxiga Portions of this note was created with [employer] voice recognition software. Buffing Wheel Former Machine variances may be present. Cathy Jaffe NP Cosigned by Ko Rojas MD at 04/12/2024 8:21 AM CDT documented in this encounter Miscellaneous Notes * Assessment & Plan Note - Cathy Jaffe NP - 04/11/2024 3:42 PM CDT Associated Problem(s): Type 2 diabetes mellitus without complication, without long-term current useof insulin (CMS/[facility]) (HCC) Impression: Chronic with good glucose control. Plan: Continue Farxiga * Assessment & Plan Note - Cathy Jaffe NP - 04/11/2024 3:42 PM CDT Associated Problem(s): Mixed hyperlipidemia Impression: Chronic stable. Plan: Continue rosuvastatin. * Assessment & Plan Note - Cathy Jaffe NP - 04/11/2024 3:42 PM CDT Associated Problem(s): Primary hypertension Impression: Chronic and stable. Plan: Continue Hyzaar * Assessment & Plan Note - Cathy Jaffe NP - 04/11/2024 3:41 PM CDT Associated Problem(s): PVD (peripheral vascular disease) ([facility]) Impression: Patient complain of symptoms of claudication [...] and return in 2-3 weeks for re-evaluation. documented in this encounter Plan of Treatment Not on file documented as of this encounter Visit Diagnoses Diagnosis PVD (peripheral vascular disease) ([facility])- Primary Unspecified peripheral vascular disease Mixed hyperlipidemia Primary hypertension Unspecified essential hypertension Type 2 diabetes mellitus without complication, without long-term current use of insulin ([facility]) ([facility]) documented in this encounter Historical Medications * This list may reflect changes made after this encounter. losartan-hydrochl orothiazide (HYZAAR) 100-25 mg per tablet Take 1 tablet by mouth daily rosuvastatin (CRESTOR) 5 mg tablet Take 1 tablet (5 mg total) by mouth daily meclizine (ANTIVERT) 25 mg tablet Take 1 tablet (25 mg total) by mouth 3 (three) times a day as needed for dizziness zolpidem (AMBIEN) 10 mg tabletIndications :Sleep-Onset Insomnia Take 1 tablet (10 mg total) by mouth nightly as needed for sleep pantoprazole DR (PROTONIX) 40 mg EC tablet Take 1 tablet (40 mg total) by mouth daily escitalopram (LEXAPRO) 10 mg tablet Take 1 tablet (10 mg total) by mouth daily dapagliflozin propanediol (FARXIGA) 10 mg tablet 1 tablet (10 mg total) added in this encounter Care Teams Machine Stripper Cutter Relationship Specialty Start Date End Date Eric Wen DO [address] [place] [address] PCP - General Internal Medicine 04/05/24 documented as of this encounter
--- OUTSIDE RECORDS SUMMARY | 2024-06-09 16:27 | XMS_ITS | Encounter Summary ---
Author Organization [facility] Address [address] [place] [address] Care Team Providers Care Irrigation System Installer Name Role Phone Unavailable Primary Care Provider Unavailabl e Reason for Visit * Reason Onset Date Comments Case Management 03/21/2017 [email or web address] Encounter Details Date Type Department Care Team (Late st Contact Info) Description 03/21/2017 Patient Outreach [facility] Outpatient Care Management - [address] [place] [address] Myrna Lawrence RN Case Management ([email or web address]) Social History Tobacco Use Types Packs/Day Years Used Date Smoking Tobacco: Never Assessed Sex and Gender Information Value Date Recorded Sex Assigned at Not on file Gender Identity Not on file Sexual Orientation Not on file documented as of this encounter Miscellaneous Notes * Telephone Encounter - Myrna Lawrence RN - 03/21/2017 2:04 PM CDT Call placed to member post ED. No answer, left message to return call to with contact information. Nadia Lawrence RN Case Manager [facility] Care Management documented in this encounter Plan of Treatment Not on file documented as of this encounter Visit Diagnoses Not on filedocumented in this encounter
== END 2024-06-03 08:37 | disposition home or self-care (01) ==
PROVIDERS: PCP Internal Medicine Nephrology; Visit Provider Internal Medicine Nephrology
DX: E11.22 Type 2 diabetes mellitus with diabetic chronic kidney disease (principal); I12.9 Hypertensive chronic kidney disease with stage 1 through stage 4 chronic kidney disease, or unspecified chronic kidney disease; N18.32 Chronic kidney disease, stage 3b
CPT/HCPCS: 36415; 80069; 82570; 83520; 84155; 84156; 84165; 84166; 86036; 86038; 86039; 86160; 86225

== ENCOUNTER 2024-07-15 07:08 | Outpatient (CLI) | payer OTHER, SELFPAY ==
--- OUTSIDE RECORDS SUMMARY | 2024-07-15 07:13 | XMS_ITS | Clinical Summary ---
Author Organization [facility] Address [address] [facility] [place] [address] Phone Care Team Providers Care Formwork Carpenter Name Role Phone Unavailable Primary Care Provider Unavailabl e Social History Tobacco Use Types Packs/Day Years Used Date Smoking Tobacco: Never Assessed Comments Unknown Sex and Gender Information Value Date Recorded Sex Assigned at Not on file Legal Sex Female 1:49 PM CLINICAL INFORMATICS MANAGER Gender Identity Not on file Sexual Orientation Not on file Plan of Treatment Health Maintenance Due Date Last Done Comments DTAP/TDAP/TD VACCINES (1 - Tdap) 1969 BREAST CANCER SCREENING 1990 COLORECTAL SCREENING 11/03/1995 Colorectal Cancer Screening 11/03/1995 FIT-DNA Q 3 years 11/03/1995 FIT/FOBT Q 1 year 11/03/1995 Flex Sig/CT Colonography Q 5 years 11/03/1995 PNEUMOCOCCAL VACCINE 65+ YEARS (1 of 1 - PCV) 11/03/19 ZOSTER VACCINE (1 of 2) 2000 OSTEOPOROSIS SCREENING 11/03/2015 INFLUENZA VACCINE (#1) 2024 RSV VACCINE (60+ or ) (1 - 1-dose 75+ series) 2025
--- OUTSIDE RECORDS SUMMARY | 2024-07-15 07:13 | XMS_ITS | Referral Summary ---
Author Organization [address] [address] Care Team Providers Care Risk Assessment Consultant Name Role Phone Eric Wen DO Primary Care Provider [phone] Encounters Date Type Department Care Team Description 07/10/2024 Orders Only [facility] Vascular at [address] [address] Sammy Rojas MD Aftercare following surgery of the circulatory system (Primary Dx) 07/10/2024 8:45 AM LAMINATION INSPECTOR Office Visit [facility] Medical [facility] Vascular at [address] [address] Sammy Rojas MD PVD (peripheral vascular disease) (HCC) (Primary Dx); Primary hypertension; Mixed hyperlipidemia 06/04/2024 7:30 AM LAMINATION INSPECTOR - 06/04/2024 8:30 AM LAMINATION INSPECTOR Surgery [facility] Inspecting Supervisor [address] [place] [address] Sammy Rojas MD BILATERAL LOWER EXTREMITY ANGIOGRAM WITH POSSIBLE INTERVENTION AND WITH RIGHT GROIN ACCESS 06/04/2024 5:51 AM LAMINATION INSPECTOR - 06/04/2024 1:59 PM LAMINATION INSPECTOR Hospital Encounter [facility] Supervisor [address] [place] [id number] Sammy Rojas MD Atherosclerotic PVD with intermittent claudication (HCC); Other disorder of circulatory system Discharge Disposition: Discharge to home or self care 05/22/2024 Documentation [facility] Vascular and Vein Surgery [address] [facility] [address] [place] [id number] Haley Jenkins RN 05/22/2024 9:15 AM LAMINATION INSPECTOR Office Visit [facility] Vascular at [address] [place] [address] Sammy Rojas MD PVD (peripheral vascular disease) ([facility]) (Primary Dx); Primary hypertension; Mixed hyperlipidemia 04/24/2024 10:00 AM LAMINATION INSPECTOR Ancillary Procedure [facility] Vascular and Vein Surgery at [address] [place] [address] PVD (peripheral vascular disease) ([facility]) from Last 3 Months Allergies Active Allergy [...] 500 mg capsule Take by mouth Active oyierxvq-dmi-mio ic acid-biotin 66.7-1,000 mcg tablet Take by mouth Active Jardiance 10 mg tablet Active Active Problems Problem Noted Date Diagnosed Date Atherosclerotic PVD with intermittent claudicati on 05/22/2024 PVD (peripheral vascular disease) 04/11/2024 Assessment & Plan (07/10/2024 8:46 AM LAMINATION INSPECTOR): Severe infrapopliteal occlusive disease, recommend 81 mg ASA, we discussed the importance of continuing ambulation and monitoring her feet with her diabetes. Follow up in 1 year with repeat noninvasives testing. Assessment & Plan (05/24/2024 10:29 AM LAMINATION INSPECTOR): Bilateral extremity severe occlusive disease with life-limiting [...] re-evaluation. Primary hypertension 04/11/2024 Assessment & Plan (07/10/2024 8:46 AM LAMINATION INSPECTOR): Stable continue losartan hydrochlorothiazide Assessment & Plan (05/24/2024 10:29 AM LAMINATION INSPECTOR): Stable continue losartan hydrochlorothiazide Assessment & Plan (04/11/2024 3:42 PM CDT): Impression: Chronic and stable. Plan: Continue Hyzaar Mixed hyperlipidemia 04/11/2024 Assessment & Plan (07/10/2024 8:46 AM LAMINATION INSPECTOR): Stable continue Crestor Assessment & Plan (05/24/2024 10:29 AM LAMINATION INSPECTOR): Stable continue Crestor Assessment & Plan (04/11/2024 3:42 PM CDT): Impression: Chronic stable. Plan: Continue rosuvastatin. Type 2 diabetes mellitus wit hout complication, without long-term current use of insulin ([facility]) 04/11/2024 Assessment & Plan (04/11/2024 3:42 PM CDT): Impression: Chronic with good glucose control. Plan: Continue Farxiga Social History Tobacco Use Types Packs/Day Years [...] on file Legal Sex Female 3:33 AM LAMINATION INSPECTOR Gender Identity Not on file Sexual Orientation Not on file Last Filed Vital Signs Vital Sign Reading Time Taken Comments Blood Pressure 134/88 07/10/2024 8:29 AM LAMINATION INSPECTOR Pulse 84 07/10/2024 8:29 AM LAMINATION INSPECTOR Temperature 36.9 ??C (98.5 ??F) 06/04/2024 8:50 AM CS T Respiratory Rate 18 06/04/2024 1:40 PM LAMINATION INSPECTOR Oxygen Saturation 96% 07/10/2024 8:29 AM LAMINATION INSPECTOR Inhaled Oxygen Concentration - - Weight 107 kg (236 lb) 07/10/2024 8:29 AM LAMINATION INSPECTOR Height 165.1 cm (5' 5 ) 07/10/2024 8:29 AM LAMINATION INSPECTOR Body Mass Index 39.27 07/10/2024 8:29 AM LAMINATION INSPECTOR Plan of Treatment Not on file Procedures Procedure Name Priority Date/Time Associated Diagnosis Comments POCT GLUCOSE DEVICE Routine 06/04/2024 8:34 AM LAMINATION INSPECTOR PERIPHERAL RUN OFF CATH Routine 06/04/2024 7:58 AM LAMINATION INSPECTOR Atherosclerotic PVD with intermittent claudication (HCC) DIFFERENTIAL AUTO Routine 06/04/2024 7:0 0 AM LAMINATION INSPECTOR CBC WITH AUTO DIFFERENTIAL Routine 06/04/2024 7:00 AM LAMINATION INSPECTOR B ABO / RH CONFIRMATION TESTING STAT 06/04/2024 7:00 AM LAMINATION INSPECTOR EGFR Routine 06/04/2024 6:35 AM LAMINATION INSPECTOR Atherosclerotic PVD with intermittent claudication (HCC) ANTIBODY SCREEN Timed 06/04/2024 6:35 AM LAMINATION INSPECTOR Atherosclerotic PVD with intermittent claudication (HCC) ABO/RH Timed 06/04/2024 6:35 AM LAMINATION INSPECTOR Atherosclerotic PVD with intermittent claudication (HCC) PROTIME-INR Routine 06/04/2024 6:35 AM LAMINATION INSPECTOR Atherosclerotic PVD with intermittent claudication (HCC) TYPE AND SCREEN Timed 06/04/2024 6:35 AM LAMINATION INSPECTOR Atherosclerotic PVD with intermittent claudication (HCC) APTT Routine 06/04/2024 6:35 AM LAMINATION INSPECTOR Atherosclerotic PVD with intermittent claudication (HCC) Other disorder of circulatory system BASIC METABOLIC PANEL Routine 06/04/2024 6:35 AM LAMINATION INSPECTOR Atherosclerotic PVD with intermittent claudication (HCC) US ARTERIAL DOPPLER LOWER EXTREMITY BILATERAL Schedule Routine, Read Routine (OP Routine) 04/24/2024 10:33 AM LAMINATION INSPECTOR PVD (peripheral vascular disease) (HCC) from Last 3 Months Results * (ABNORMAL) POCT glucose (06/04/2024 8:34 AM LAMINATION INSPECTOR) Glucose, POC 227(H) 70 - 199 mg/dL Blood 06/04/2024 8:34 AM LAMINATION INSPECTOR 06/04/2024 8:34 AM LAMINATION INSPECTOR Smamy Rojas MD LAB POCT ORDERABLES - DEVICE Fin al Result [facility] [address] [facility] [place] [address] * PERIPHERAL RUN OFF CATH (06/04/2024 7:58 AM LAMINATION INSPECTOR) Anatomical Region Laterality Modality X-Ray Angiograph y Narrative 06/04/2024 8:02 AM LAMINATION INSPECTOR Please see OpNote for result. Sammy Rojas MD CV CARDIAC CATH PROCEDURES Final Result * Differential, auto (06/04/2024 7:00 AM LAMINATION INSPECTOR) Pathologist [facility] Neutrophil abs 5.2 1.5 - 6.5 K/cumm Imm gran abs 0.0 0.0 - 0.1 K/cumm [facility] Lymphocyte abs 1.5 0.8 - 3.3 K/cumm [facility] Monocyte abs 0.6 0.2 - 0.8 K/cumm [facility] Eosinophil abs 0.2 0.0 - 0.5 K/cumm [facility] Basophil abs 0.1 0.0 - 0.1 K/cumm [facility] Neutrophil pct 69.1 % [facility] Comment: Interpretive Data Percent cell count reference ranges are not reported, since discordance with absolute values may lead to misinterpretation of CBC data. Current Interpretive Data was last revised on 2017. Imm gran pct 0.1 % [facility] Comment: Interpretive Data Percent cell count reference ranges are not reported, since discordance with absolute values may lead to misinterpretation of CBC data. Current Interpretive Data was last revised on 2017. Lymphocyte pct 20.1 % [facility] Comment: Interpretive Data Percent cell count reference ranges are not reported, since discordance with absolute values may lead to misinterpretation of CBC data. Current Interpretive Data was last revised on 2017. Monocyte pct 7.8 % [facility] Comment: Interpretive Data Percent cell count reference ranges are not reported, since discordance with absolute values may lead to misinterpretation of CBC data. Current Interpretive Data was last revised on 2017. Eosinophil pct 2.1 % [facility] Comment: Interpretive Data Percent cell count reference ranges are not reported, since discordance with absolute values may lead to misinterpretation of CBC data. Current Interpretive Data was last revised on 2017. Basophil pct 0.8 % [facility] Comment: Interpretive Data Percent cell count reference ranges are not reported, since discordance with absolute values may lead to misinterpretation of CBC data. Current Interpretive Data was last revised on 2017. Blood 06/04/2024 7:00 AM LAMINATION INSPECTOR 06/04/2024 7:02 AM LAMINATION INSPECTOR Sammy Rojas MD LAB BLOOD ORDERABLES Final Resul t Performing Organization Address City/[facility] Co de Phone Number [address] [address] * ABO / Rh Confirmation Testing (06/04/2024 7:00 AM LAMINATION INSPECTOR) Pathologist [facility] ABO/Rh Confirmation A Negative [facility] Blood 06/04/2024 7:00 AM LAMINATION INSPECTOR 06/04/2024 7:03 AM LAMINATION INSPECTOR Sammy Rojas MD LAB BLOOD ORDERABLES Final Resul t Performing Organization Address [facility] de Phone Number [address] [address] [facility] * CBC with auto differential (06/04/2024 7:00 AM LAMINATION INSPECTOR) [facility] WBC 7.5 3.8 - 9.9 K/cumm Hgb 13.4 11.9 - 15.5 g/dL [facility] Hct 40.0 35.6 - 45.5 % [facility] Plt 222 150 - 400 K/cumm [facility] MPV 10.6 9.1 - 12.3 fL [facility] RBC 4.54 3.90 - 5.20 M/cumm [facility] MCV 88.1 81.3 - 96.4 fL [facility] MCH 29.5 27.1 - 33.3 pg [facility] MCHC 33.5 32.3 - 35.7 g/dL [facility] RDW CV 12.8 11.1 - 14.9 % [facility] RDW SD 41.2 35.7 - 48.1 fL [facility] NRBC abs 0.00 0.00 - 0.01 K/cumm [facility] Blood 06/04/2024 7:00 AM LAMINATION INSPECTOR 06/04/2024 7:02 AM LAMINATION INSPECTOR us Sammy Rojas MD LAB BLOOD ORDERABLES Final Resul t [facility] [address] [facility] Department [place] [address] * (ABNORMAL) eGFR (06/04/2024 6:35 AM LAMINATION INSPECTOR) eGFR 32(L) >=60 mL/min/1. 73 m2 Comment: [...] last reviewed 2021. Blood 06/04/2024 6:35 AM LAMINATION INSPECTOR 06/04/2024 6:39 AM LAMINATION INSPECTOR Result [facility] Sammy Rojas MD LAB BLOOD ORDERABLES Final Resul t Performing Organization Address [facility] de Phone Number [address] [place] [address] * ABO/Rh (06/04/2024 6:35 AM LAMINATION INSPECTOR) ABO/Rh A Negative Blood 06/04/2024 6:35 AM LAMINATION INSPECTOR 06/04/2024 6:39 AM LAMINATION INSPECTOR Narrative [facility] - 06/04/2024 7:17 AM LAMINATION INSPECTOR Has the patient had Daratumumab or Isatuximab in the past 6 months?->Unknown Result [facility] Sammy Rojas MD LAB BLOOD BANK TEST ORDERABLES F inal Result Performing Organization Address [facility] de Phone Number [address] [address] * aPTT (06/04/2024 6:35 AM LAMINATION INSPECTOR) aPTT 24 22 - 37 sec Comment: Interpretive data aPTT test has not been evaluated for monitoring heparin therapy. The anti-Xa is the preferred test. Current interpretive data was last revised on 2019. Blood 06/04/2024 6:35 AM LAMINATION INSPECTOR 06/04/2024 6:39 AM LAMINATION INSPECTOR Result [facility] Sammy Rojas MD LAB BLOOD ORDERABLES Final Resul t Performing Organization Address [facility] de Phone Number [address] [place] [address] * Protime-INR (06/04/2024 6:35 AM LAMINATION INSPECTOR) PT 13.8 12.0 - 14.6 sec INR 1.0 0.9 - 1.2 [facility] Comment: Ref Range High Interpretive data Oral anticoagulant therapeutic ranges: Venous thromboembolism prophylaxis or treatment: 2.0-3.0 CARDIOLOGY Standard range: 2.0-3.0 High-intensity range: 2.5-3.5 Refer to indication-specific guidelines for appropriate target ranges for prosthetic heart valve replacement. Current interpretive data was last revised on 2019. Blood 06/04/2024 6:35 AM LAMINATION INSPECTOR 06/04/2024 6:39 AM LAMINATION INSPECTOR Sammy Rojas MD LAB BLOOD ORDERABLES Final Resul t Performing Organization Address [facility] de Phone Number [address] [address] * Antibody screen (06/04/2024 6:35 AM LAMINATION INSPECTOR) [facility] Goran, indirect, Gel Interpretation Negative ABSC Blood 06/04/2024 6:35 AM LAMINATION INSPECTOR 06/04/2024 6:39 AM LAMINATION INSPECTOR Narrative [facility] - 06/04/2024 7:17 AM LAMINATION INSPECTOR Has the patient had Daratumumab or Isatuximab in the past 6 months?->Unknown Sammy Rojas MD LAB BLOOD BANK TEST ORDERABLES F inal Result Performing Organization Address [facility] de Phone Number [address] [address] * (ABNORMAL) Basic metabolic panel (06/04/2024 6:35 AM LAMINATION INSPECTOR) [facility] Sodium 136 135 - 145 mmol/L Potassium, pl 3.4 3.3 - 4.9 mmol/L [facility] Comment:Hemolyzed; Potassium value may be falsely elevated by as much as 1.0 mmol/L. Suggest redraw and reanalysis. Chloride 99 97 - 110 mmol/L [facility] CO2 25 22 - 32 mmol/L [facility] Anion gap 12 2 - 15 mmol/L [facility] BUN 22 6 - 25 mg/dL [facility] Creatinine 1.68(H) 0.60 - 1.10 mg/dL [facility] Glucose 277(H) 70 - 199 mg/dL [facility] Comment: Interpretive Data Fasting glucose >/= 126 [...] classification and Diagnosis of Diabetes Diabetes Care 2022; 46: S19-S40. Current interpretive data was last revised 2022. Calcium 8.9 8.5 - 10.3 mg/dL [facility] Blood 06/04/2024 6:35 AM LAMINATION INSPECTOR 06/04/2024 6:39 AM LAMINATION INSPECTOR us Sammy Rojas MD LAB BLOOD ORDERABLES Final Resul t [facility] [address] [facility] Department [place] [address] * US Arterial Doppler Lower Extremity Bilateral (04/24/2024 10:33 AM LAMINATION INSPECTOR) Anatomical Region Laterality Modality Vascular Bilateral Ultrasound 04/24/2024 9:38 AM LAMINATION INSPECTOR Narrative 04/25/2024 1:31 PM LAMINATION INSPECTOR Vascular & Vein Surgery [address] [place] [address] Lower Extremity Arterial Doppler Report Patient Name: AMADA GUEVARA A : 1950 Study Date: 04/24/2024 9:38:00 AM Gender: F Surveying Technician: Sanjana Pool RVT Location: [facility] Ref Provider: [...] Lt Calf Pressure ? 68 mmHg Rt [employer] Pressure ?67 mmHg ? Lt [employer] DIRECTOR Pressure ?66 mmHg Rt DPA Pressure ?75 [...] Signed By: Sammy Rojas MD [facility] 2024-04-25 13:31:01 LAMINATION INSPECTOR Procedure Note Sammy Rojas MD - 04/25/2024 Vascular & Vein Surgery [address] [place] [address]. [place] [address] Lower Extremity Arterial Doppler Report Patient Name: AMADA GUEVARA A : 1950 Study Date: 04/24/2024 9:38:00 AM Gender: F Surveying Technician: Sanjana Pool RVT Location: [facility] Ref Provider: SAMMY ROJAS Quality: Adequate Order Provider: SAMMY ROJAS PROCEDURES: Arterial Report: Bilateral lower extremity arterial Doppler exam at rest. INDICATIONS: BLE claudication. HISTORY: Hypertension. Hyperlipidemia. Diabetic. PREVIOUS STUDIES: No previous studies for comparison. MEASUREMENTS: Right Value Left Value Rt Brachial Pressure 145 mmHg Lt Brachial Pressure 132 mmHg Rt Calf Pressure 57 mmHg Lt Calf Pressure 68 mmHg Rt [employer] Pressure 67 mmHg Lt [employer] DIRECT[employer] Pressure 66 mmHg Rt DPA Pressure 75 [...] Signed By: Sammy Rojas MD [facility] 2024-04-25 13:31:01 LAMINATION INSPECTOR Sammy Rojas MD [facility] PROCEDURES Final Result from Last 3 Months Insurance [facility] Advance Directives For more information, please contact: [phone] * Full Code (Latest Code Status on File) Date Activated Date Inactivated Comments 06/04/2024 8:15 AM 06/04/2024 5:59 PM Care Teams Risk Assessment Consultant Relationship Specialty Start Date End Date Eric Wen DO [address] [facility] [address] [place] [address] PCP - General Internal Medicine 04/05/24
--- OUTSIDE RECORDS SUMMARY | 2024-07-15 07:13 | XMS_ITS | Clinical Summary ---
Author Organization [facility] [address] Address [address] [place] [id number] Care Team Providers Care Chief Merchandising Officer Name Role Phone Eric Wen DO Primary Care Provider [phone] Allergies Active Allergy Reactions Criticality Noted Date [...] 500 mg capsule Take by mouth Active xartaljw-ycp-jtp ic acid-biotin 66.7-1,000 mcg tablet Take by mouth Active Jardiance 10 mg tablet 5 Active Active Problems Problem Noted Date Diagnosed Date Atherosclerotic PVD with intermittent claudicati on 05/22/2024 PVD (peripheral vascular disease) 04/11/2024 Assessment & Plan (07/10/2024 8:46 AM AUTOMATIC LOG CUT OFF SAWYER): Severe infrapopliteal occlusive disease, recommend 81 mg ASA, we discussed the importance of continuing ambulation and monitoring her feet with her diabetes. Follow up in 1 year with repeat noninvasives testing. Assessment & Plan (05/24/2024 10:29 AM AUTOMATIC LOG CUT OFF SAWYER): Bilateral extremity severe occlusive disease with life-limiting [...] 04/11/2024 Assessment & Plan (07/10/2024 8:46 AM AUTOMATIC LOG CUT OFF SAWYER): Stable continue losartan hydrochlorothiazide Assessment & Plan (05/24/2024 10:29 AM AUTOMATIC LOG CUT OFF SAWYER): Stable continue losartan hydrochlorothiazide Assessment & Plan (04/11/2024 3:42 PM CDT): Impression: Chronic and stable. Plan: Continue Hyzaar Mixed hyperlipidemia 04/11/2024 Assessment & Plan (07/10/2024 8:46 AM AUTOMATIC LOG CUT OFF SAWYER): Stable continue Crestor Assessment & Plan (05/24/2024 10:29 AM AUTOMATIC LOG CUT OFF SAWYER): Stable continue Crestor Assessment & Plan (04/11/2024 3:42 PM CDT): Impression: Chronic stable. Plan: Continue rosuvastatin. Type 2 diabetes mellitus wit hout complication, without long-term current use of insulin ([facility]) 04/11/2024 Assessment & Plan (04/11/2024 3:42 PM CDT): Impression: Chronic with good glucose control. Plan: Continue Farxiga Encounters Date Type Department Care Team Description 07/10/2024 8:45 AM AUTOMATIC LOG CUT OFF SAWYER Office Visit [facility] at [address] [phone] Sammy Rojas MD PVD (peripheral vascular disease) (HCC) (Primary Dx); Primary hypertension; Mixed hyperlipidemia 07/10/2024 Orders Only [facility] at [address] [phone] Sammy Rojas MD Aftercare following surgery of the circulatory system (Primary Dx) 06/04/2024 7:30 AM AUTOMATIC LOG CUT OFF SAWYER - 06/04/2024 8:30 AM AUTOMATIC LOG CUT OFF SAWYER Surgery [facility] [address] [place] [id number] Sammy Rojas MD BILATERAL LOWER EXTREMITY ANGIOGRAM WITH POSSIBLE INTERVENTION AND WITH RIGHT GROIN ACCESS 06/04/2024 5:51 AM AUTOMATIC LOG CUT OFF SAWYER - 06/04/2024 1:59 PM AUTOMATIC LOG CUT OFF SAWYER Hospital Encounter [facility] [address] [place] [id number] Sammy Rojas MD Atherosclerotic PVD with intermittent claudication (HCC); Other disorder of circulatory system Discharge Disposition: Discharge to home or self care 05/22/2024 9:15 AM AUTOMATIC LOG CUT OFF SAWYER Office Visit [facility] at [address] [phone] Sammy Rojas MD PVD (peripheral vascular disease) (HCC) (Primary Dx); Primary hypertension; Mixed hyperlipidemia 05/22/2024 Documentation [facility] Vascular and Vein Surgery [address] [facility] [address] [place] [address] Haley Jenkins RN 04/24/2024 10:00 AM AUTOMATIC LOG CUT OFF SAWYER Ancillary Procedure [facility] Vascular and Vein Surgery at [address] [place] [phone] PVD (peripheral vascular disease) (HCC) from Last 3 Months Surgical History Surgery [...] on file Legal Sex Female 3:33 AM AUTOMATIC LOG CUT OFF SAWYER Gender Identity Not on file Sexual Orientation Not on file Obstetrics History Last Filed Vital Signs Vital Sign Reading Time Taken Comments Blood Pressure 134/88 07/10/2024 8:29 AM AUTOMATIC LOG CUT OFF SAWYER Pulse 84 07/10/2024 8:29 AM AUTOMATIC LOG CUT OFF SAWYER Temperature 36.9 ??C (98.5 ??F) 06/04/2024 8:50 AM CS T Respiratory Rate 18 06/04/2024 1:40 PM AUTOMATIC LOG CUT OFF SAWYER Oxygen Saturation 96% 07/10/2024 8:29 AM AUTOMATIC LOG CUT OFF SAWYER Inhaled Oxygen Concentration - - Weight 107 kg (236 lb) 07/10/2024 8:29 AM AUTOMATIC LOG CUT OFF SAWYER Height 165.1 cm (5' 5 ) 07/10/2024 8:29 AM AUTOMATIC LOG CUT OFF SAWYER Body Mass Index 39.27 07/10/2024 8:29 AM AUTOMATIC LOG CUT OFF SAWYER Plan of Treatment Health Maintenance Due Date [...] GLUCOSE DEVICE Routine 06/04/2024 8 :34 AM AUTOMATIC LOG CUT OFF SAWYER PERIPHERAL RUN OFF CATH Routine 06/04/2024 7:58 AM AUTOMATIC LOG CUT OFF SAWYER Atherosclerotic PVD with intermittent claudication (HCC) DIFFERENTIAL AUTO Routine 06/04/2024 7:0 0 AM AUTOMATIC LOG CUT OFF SAWYER CBC WITH AUTO DIFFERENTIAL Routine 06/04/2024 7:00 AM AUTOMATIC LOG CUT OFF SAWYER B ABO / RH CONFIRMATION TESTING STAT 06/04/2024 7:00 AM AUTOMATIC LOG CUT OFF SAWYER EGFR Routine 06/04/2024 6:35 AM AUTOMATIC LOG CUT OFF SAWYER Atherosclerotic PVD with intermittent claudication (HCC) ANTIBODY SCREEN Timed 06/04/2024 6:35 AM AUTOMATIC LOG CUT OFF SAWYER Atherosclerotic PVD with intermittent claudication (HCC) ABO/RH Timed 06/04/2024 6:35 AM AUTOMATIC LOG CUT OFF SAWYER Atherosclerotic PVD with intermittent claudication (HCC) PROTIME-INR Routine 06/04/2024 6:35 AM AUTOMATIC LOG CUT OFF SAWYER Atherosclerotic PVD with intermittent claudication (HCC) TYPE AND SCREEN Timed 06/04/2024 6:35 AM AUTOMATIC LOG CUT OFF SAWYER Atherosclerotic PVD with intermittent claudication (HCC) APTT Routine 06/04/2024 6:35 AM AUTOMATIC LOG CUT OFF SAWYER Atherosclerotic PVD with intermittent claudication (HCC) Other disorder of circulatory system BASIC METABOLIC PANEL Routine 06/04/2024 6:35 AM AUTOMATIC LOG CUT OFF SAWYER Atherosclerotic PVD with intermittent claudication (HCC) US ARTERIAL DOPPLER LOWER EXTREMITY BILATERAL Schedule Routine, Read Routine (OP Routine) 04/24/2024 10:33 AM AUTOMATIC LOG CUT OFF SAWYER PVD (peripheral vascular disease) (HCC) from Last 3 Months Results * (ABNORMAL) POCT glucose (06/04/2024 8:34 AM AUTOMATIC LOG CUT OFF SAWYER) Pathologist [facility] Glucose, POC 227(H) 70 - 199 mg/dL Blood 06/04/2024 8:34 AM AUTOMATIC LOG CUT OFF SAWYER 06/04/2024 8:34 AM AUTOMATIC LOG CUT OFF SAWYER Sammy Rojas MD LAB POCT ORDERABLES - DEVICE Fin al Result [facility] [address] [facility] Department [place] [address] * PERIPHERAL RUN OFF CATH (06/04/2024 7:58 AM AUTOMATIC LOG CUT OFF SAWYER) Anatomical Region Laterality Modality X-Ray Angiograph y Narrative 06/04/2024 8:02 AM AUTOMATIC LOG CUT OFF SAWYER Please see OpNote for result. Sammy Rojas MD CV CARDIAC CATH PROCEDURES Final Result * Differential, auto (06/04/2024 7:00 AM AUTOMATIC LOG CUT OFF SAWYER) Pathologist [facility] Neutrophil abs 5.2 1.5 - 6.5 K/cumm Imm gran abs 0.0 0.0 - 0.1 K/cumm [facility] Lymphocyte abs 1.5 0.8 - 3.3 K/cumm [facility] Monocyte abs 0.6 0.2 - 0.8 K/cumm [facility] Eosinophil abs 0.2 0.0 - 0.5 K/cumm [facility] Basophil abs 0.1 0.0 - 0.1 K/cumm [facility] Neutrophil pct 69.1 % [facility] Comment: Interpretive Data Percent cell count reference ranges are not reported, since discordance with absolute values may lead to misinterpretation of CBC data. Current Interpretive Data was last revised on 2017. Imm gran pct 0.1 % [facility] Comment: Interpretive Data Percent cell count reference ranges are not reported, since discordance with absolute values may lead to misinterpretation of CBC data. Current Interpretive Data was last revised on 2017. Lymphocyte pct 20.1 % [facility] Comment: Interpretive Data Percent cell count reference ranges are not reported, since discordance with absolute values may lead to misinterpretation of CBC data. Current Interpretive Data was last revised on 2017. Monocyte pct 7.8 % [facility] Comment: Interpretive Data Percent cell count reference ranges are not reported, since discordance with absolute values may lead to misinterpretation of CBC data. Current Interpretive Data was last revised on 2017. Eosinophil pct 2.1 % [facility] Comment: Interpretive Data Percent cell count reference ranges are not reported, since discordance with absolute values may lead to misinterpretation of CBC data. Current Interpretive Data was last revised on 2017. Basophil pct 0.8 % [facility] Comment: Interpretive Data Percent cell count reference ranges are not reported, since discordance with absolute values may lead to misinterpretation of CBC data. Current Interpretive Data was last revised on 2017. Blood 06/04/2024 7:00 AM AUTOMATIC LOG CUT OFF SAWYER 06/04/2024 7:02 AM AUTOMATIC LOG CUT OFF SAWYER us Sammy Rojas MD LAB BLOOD ORDERABLES Final Resul t [facility] DANIEL [address] [facility] Department [place] [address] * ABO / Rh Confirmation Testing (06/04/2024 7:00 AM AUTOMATIC LOG CUT OFF SAWYER) ABO/Rh Confirmation A Negative [facility] Blood 06/04/2024 7:00 AM AUTOMATIC LOG CUT OFF SAWYER 06/04/2024 7:03 AM AUTOMATIC LOG CUT OFF SAWYER Sammy Rojas MD LAB BLOOD ORDERABLES Final Resul t Performing Organization Address [facility] de Phone Number ZORAN [address] [place] [address] [facility] * CBC with auto differential (06/04/2024 7:00 AM AUTOMATIC LOG CUT OFF SAWYER) [facility] WBC 7.5 3.8 - 9.9 K/cumm Hgb 13.4 11.9 - 15.5 g/dL [facility] Hct 40.0 35.6 - 45.5 % [facility] Plt 222 150 - 400 K/cumm [facility] MPV 10.6 9.1 - 12.3 fL [facility] RBC 4.54 3.90 - 5.20 M/cumm [facility] MCV 88.1 81.3 - 96.4 fL [facility] MCH 29.5 27.1 - 33.3 pg [facility] MCHC 33.5 32.3 - 35.7 g/dL [facility] RDW CV 12.8 11.1 - 14.9 % [facility] RDW SD 41.2 35.7 - 48.1 fL [facility] NRBC abs 0.00 0.00 - 0.01 K/cumm [facility] Blood 06/04/2024 7:00 AM AUTOMATIC LOG CUT OFF SAWYER 06/04/2024 7:02 AM AUTOMATIC LOG CUT OFF SAWYER Sammy Rojas MD LAB BLOOD ORDERABLES Final Resul t Performing Organization Address [facility] de Phone Number ZORAN [address] [facility] [place] [address] * (ABNORMAL) eGFR (06/04/2024 6:35 AM AUTOMATIC LOG CUT OFF SAWYER) [facility] eGFR 32(L) >=60 mL/min/1. 73 m2 Comment: [...] last reviewed 2021. Blood 06/04/2024 6:35 AM AUTOMATIC LOG CUT OFF SAWYER 06/04/2024 6:39 AM AUTOMATIC LOG CUT OFF SAWYER Sammy Rojas MD LAB BLOOD ORDERABLES Final Resul t Performing Organization Address [facility] Co de Phone Number [address] [place] [employer] [place] [address] * ABO/Rh (06/04/2024 6:35 AM AUTOMATIC LOG CUT OFF SAWYER) ABO/Rh A Negative Blood 06/04/2024 6:35 AM AUTOMATIC LOG CUT OFF SAWYER 06/04/2024 6:39 AM AUTOMATIC LOG CUT OFF SAWYER Narrative ZORAN - 06/04/2024 7:17 AM AUTOMATIC LOG CUT OFF SAWYER Has the patient had Daratumumab or Isatuximab in the past 6 months?->Unknown Sammy Rojas MD LAB BLOOD BANK TEST ORDERABLES F inal Result [address] [place] [employer] [place] [address] * aPTT (06/04/2024 6:35 AM AUTOMATIC LOG CUT OFF SAWYER) aPTT 24 22 - 37 sec Comment: Interpretive data aPTT test has not been evaluated for monitoring heparin therapy. The anti-Xa is the preferred test. Current interpretive data was last revised on 2019. Blood 06/04/2024 6:35 AM AUTOMATIC LOG CUT OFF SAWYER 06/04/2024 6:39 AM AUTOMATIC LOG CUT OFF SAWYER Sammy Rojas MD LAB BLOOD ORDERABLES Final Resul t Performing Organization Address [facility] de Phone Number [address] [place] [address] * Protime-INR (06/04/2024 6:35 AM AUTOMATIC LOG CUT OFF SAWYER) Pathologist [facility] PT 13.8 12.0 - 14.6 sec INR 1.0 0.9 - 1.2 [facility] Comment: Ref Range High Interpretive data Oral anticoagulant therapeutic ranges: Venous thromboembolism prophylaxis or treatment: 2.0-3.0 CARDIOLOGY Standard range: 2.0-3.0 High-intensity range: 2.5-3.5 Refer to indication-specific guidelines for appropriate target ranges for prosthetic heart valve replacement. Current interpretive data was last revised on 2019. Blood 06/04/2024 6:35 AM AUTOMATIC LOG CUT OFF SAWYER 06/04/2024 6:39 AM AUTOMATIC LOG CUT OFF SAWYER Sammy Rojas MD LAB BLOOD ORDERABLES Final Resul t Performing Organization Address [facility] Co de Phone Number [address] [place] [place] [address] * Antibody screen (06/04/2024 6:35 AM AUTOMATIC LOG CUT OFF SAWYER) Pathologist [facility] Goran, indirect, Gel Interpretation Negative ABSC Blood 06/04/2024 6:35 AM AUTOMATIC LOG CUT OFF SAWYER 06/04/2024 6:39 AM AUTOMATIC LOG CUT OFF SAWYER Narrative ZORAN - 06/04/2024 7:17 AM AUTOMATIC LOG CUT OFF SAWYER Has the patient had Daratumumab or Isatuximab in the past 6 months?->Unknown Sammy Rojas MD LAB BLOOD BANK TEST ORDERABLES F inal Result Performing Organization Address City/[facility]/ZIP Co de Phone Number ZORAN [address] [facility] [employer] [place] [employer] [place] [address] * (ABNORMAL) Basic metabolic panel (06/04/2024 6:35 AM AUTOMATIC LOG CUT OFF SAWYER) Sodium 136 135 - 145 mmol/L Potassium, pl 3.4 3.3 - 4.9 mmol/L [facility] Comment:Hemolyzed; Potassium value may be falsely elevated by as much as 1.0 mmol/L. Suggest redraw and reanalysis. Chloride 99 97 - 110 mmol/L [facility] CO2 25 22 - 32 mmol/L [facility] Anion gap 12 2 - 15 mmol/L [facility] BUN 22 6 - 25 mg/dL [facility] Creatinine 1.68(H) 0.60 - 1.10 mg/dL [facility] Glucose 277(H) 70 - 199 mg/dL [facility] Comment: Interpretive Data Fasting glucose >/= 126 [...] 2022. Calcium 8.9 8.5 - 10.3 mg/dL [facility] Blood 06/04/2024 6:35 AM AUTOMATIC LOG CUT OFF SAWYER 06/04/2024 6:39 AM AUTOMATIC LOG CUT OFF SAWYER Sammy Rojas MD LAB BLOOD ORDERABLES Final Resul t Performing Organization Address City/[facility]/ZIP Co de Phone Number [facility] [address] [facility] [employer] [address] * US Arterial Doppler Lower Extremity Bilateral (04/24/2024 10:33 AM AUTOMATIC LOG CUT OFF SAWYER) Anatomical Region Laterality Modality Vascular Bilateral Ultrasound 04/24/2024 9:38 AM AUTOMATIC LOG CUT OFF SAWYER Narrative 04/25/2024 1:31 PM AUTOMATIC LOG CUT OFF SAWYER Vascular & Vein Surgery [address] [place] [address] Lower Extremity Arterial Doppler Report Patient Name: AMADA GUEVARA A : 1950 Study Date: 04/24/2024 9:38:00 AM Gender: F Training Professional: Sanjana Pool RVT Location: [facility]SE Ref Provider: [...] Lt Calf Pressure ? 68 mmHg Rt DIRECTOR SURGICAL Pressure ?67 mmHg ? Lt DIRECTOR SURGICAL Pressure ?66 mmHg Rt DPA Pressure ?75 [...] above. Electronically Signed By: Sammy Rojas MD [facility] 2024-04-25 13:31:01 AUTOMATIC LOG CUT OFF SAWYER Procedure Note Sammy Rojas MD - 04/25/2024 Vascular & Vein Surgery [address] [place] [address]. [place] [address] Lower Extremity Arterial Doppler Report Patient Name: AMADA GUEVARA A : 1950 Study Date: 04/24/2024 9:38:00 AM Gender: F Training Professional: Sanjana Pool RVT Location: [facility] Ref Provider: [...] mmHg Lt Calf Pressure 68 mmHg Rt DIRECTOR SURGICAL Pressure 67 mmHg Lt DIRECTOR SURGICAL Pressure 66 mmHg Rt DPA Pressure 75 [...] above. Electronically Signed By: Sammy Rojas MD [facility] 2024-04-25 13:31:01 AUTOMATIC LOG CUT OFF SAWYER Sammy Rojas MD [facility] PROCEDURES Final Result from Last 3 Months Insurance [facility] Advance Directives For more information, please contact: [phone] * Full Code (Latest Code Status on File) Date Activated Date Inactivated Comments 06/04/2024 8:15 AM 06/04/2024 5:59 PM Care Teams Chief Merchandising Officer Relationship Specialty Start Date End Date Eric Wen DO [address] [facility] [address] [place], [place] [id number] PCP - General Internal Medicine 04/05/24
[2024-07-15 08:05] LABS: Albumin Level 3.7 g/dL (3.5-5.1); Anion Gap 11 mmol/L (4-12); Blood Urea Nitrogen 21 mg/dL (7-17); Calcium 8.8 mg/dL (8.4-10.2); Carbon Dioxide 26 mmol/L (22-30); Chloride 93 mmol/L (98-107); Estimated Glomerular Filt Rate 36; Glucose 563 mg/dL (65-110); Phosphorus 2.3 mg/dL (2.5-4.5); Potassium 3.7 mmol/L (3.4-5.0); Sodium 130 mmol/L (137-145)
== END 2024-07-15 07:09 | disposition home or self-care (01) ==
PROVIDERS: PCP Internal Medicine Nephrology; Visit Provider Internal Medicine Nephrology
DX: E11.22 Type 2 diabetes mellitus with diabetic chronic kidney disease (principal); I12.9 Hypertensive chronic kidney disease with stage 1 through stage 4 chronic kidney disease, or unspecified chronic kidney disease; N18.32 Chronic kidney disease, stage 3b
CPT/HCPCS: 36415; 80069

== ENCOUNTER 2024-07-17 14:30 | Outpatient (CLI) | payer OTHER, SELFPAY ==
--- NOTE | ~2024-07-17 | CT_ITS ---
EXAMINATION: CT brain wo con DATE: 07/17/2024 14:49 INDICATION: Dizziness and giddiness TECHNIQUE: Computed tomography (CT) of the head was performed without intravenous contrast. Sagittal and coronal reconstructions were performed. The mA was adjusted according to patient size. Iterative reconstruction technique was employed. The dose-length product was 605.33 mGy-cm. COMPARISON: head CT dated 02/26/2018 FINDINGS: Unchanged small old lacunar infarct at the head of the right caudate nucleus. No acute intracranial h emorrhage, acute infarction or abnormal extra axial fluid collection. There is mild scattered white m atter hypoattenuation consistent with chronic small vessel ischemic disease. Ventricles are normal a nd symmetric. No mass/mass effect. Changes of bilateral intraocular lens replacement. The orbits, par anasal sinuses and mastoid air cells are normal. Intracranial calcified cerebral atherosclerosis is n oted at the bilateral carotid siphons. IMPRESSION: 1. Small old lacunar infarct at the right caudate nucleus. No acute intracranial process. 2. Mild scattered white matter hypoattenuation consistent with chronic small vessel ischemic disease. Reviewed, dictated and finalized at location B. ECTING ENGINEER IMPRESSION: 1. Small old lacunar infarct at the right caudate nucleus. No acute intracrania l process. 2. Mild scattered white matter hypoattenuation consistent with chronic small ve ssel ischemic disease.
--- OUTSIDE RECORDS SUMMARY | 2024-07-17 15:23 | XMS_ITS | Clinical Summary ---
Author Organization [facility] [place] [address] Address [address] [place] [id number] Care Team Providers Care Window Treatment Installer Name Role Phone Eric Wen DO Primary Care Provider [phone] Allergies Active Allergy Reactions Criticality Noted Date [...] 500 mg capsule Take by mouth Active juebkqgl-zjo-[id number] ic acid-biotin 66.7-1,000 mcg tablet Take by mouth Active Jardiance 10 mg tablet 5 Active Active Problems Problem Noted Date Diagnosed Date Atherosclerotic PVD with intermittent claudicati on 05/22/2024 PVD (peripheral vascular disease) 04/11/2024 Assessment & Plan (07/10/2024 8:46 AM SERVER ASSISTANT): Severe infrapopliteal occlusive disease, recommend 81 mg ASA, we discussed the importance of continuing ambulation and monitoring her feet with her diabetes. Follow up in 1 year with repeat noninvasives testing. Assessment & Plan (05/24/2024 10:29 AM SERVER ASSISTANT): Bilateral extremity severe occlusive disease with life-limiting [...] 04/11/2024 Assessment & Plan (07/10/2024 8:46 AM SERVER ASSISTANT): Stable continue losartan hydrochlorothiazide Assessment & Plan (05/24/2024 10:29 AM SERVER ASSISTANT): Stable continue losartan hydrochlorothiazide Assessment & Plan (04/11/2024 3:42 PM CDT): Impression: Chronic and stable. Plan: Continue Hyzaar Mixed hyperlipidemia 04/11/2024 Assessment & Plan (07/10/2024 8:46 AM SERVER ASSISTANT): Stable continue Crestor Assessment & Plan (05/24/2024 10:29 AM SERVER ASSISTANT): Stable continue Crestor Assessment & Plan (04/11/2024 3:42 PM CDT): Impression: Chronic stable. Plan: Continue rosuvastatin. Type 2 diabetes mellitus wit hout complication, without long-term current use of insulin ([facility]) 04/11/2024 Assessment & Plan (04/11/2024 3:42 PM CDT): Impression: Chronic with good glucose control. Plan: Continue Farxiga Encounters Date Type Department Care Team Description 07/10/2024 8:45 AM SERVER ASSISTANT Office Visit [facility] at [address] [phone] Sammy Rojas MD PVD (peripheral vascular disease) (HCC) (Primary Dx); Primary hypertension; Mixed hyperlipidemia 07/10/2024 Orders Only [facility] at [address] [phone] Sammy Rojas MD Aftercare following surgery of the circulatory system (Primary Dx) 06/04/2024 7:30 AM SERVER ASSISTANT - 06/04/2024 8:30 AM SERVER ASSISTANT Surgery [facility] [employer] [employer] [address] [place] [phone] Sammy Rojas MD BILATERAL LOWER EXTREMITY ANGIOGRAM WITH POSSIBLE INTERVENTION AND WITH RIGHT GROIN ACCESS 06/04/2024 5:51 AM SERVER ASSISTANT - 06/04/2024 1:59 PM SERVER ASSISTANT Hospital Encounter [facility] [employer] [employer] [address] [place] [phone] Sammy Rojas MD Atherosclerotic PVD with intermittent claudication (HCC); Other disorder of circulatory system Discharge Disposition: Discharge to home or self care 05/22/2024 9:15 AM SERVER ASSISTANT Office Visit [facility] at [address] [phone] Sammy Rojas MD PVD (peripheral vascular disease) (HCC) (Primary Dx); Primary hypertension; Mixed hyperlipidemia 05/22/2024 Documentation [facility] Ve[facility] [address] [place] [address] Haley Jenkins RN 04/24/2024 10:00 AM SERVER ASSISTANT Ancillary Procedure [facility]ascular and Vein Surgery at [address] [place] [phone] PVD (peripheral vascular disease) (HCC) from Last [...] on file Legal Sex Female 3:33 AM SERVER ASSISTANT Gender Identity Not on file Sexual Orientation Not on file Obstetrics History Last Filed Vital Signs Vital Sign Reading Time Taken Comments Blood Pressure 134/88 07/10/2024 8:29 AM SERVER ASSISTANT Pulse 84 07/10/2024 8:29 AM SERVER ASSISTANT Temperature 36.9 ??C (98.5 ??F) 06/04/2024 8:50 AM CS T Respiratory Rate 18 06/04/2024 1:40 PM SERVER ASSISTANT Oxygen Saturation 96% 07/10/2024 8:29 AM SERVER ASSISTANT Inhaled Oxygen Concentration - - Weight 107 kg (236 lb) 07/10/2024 8:29 AM SERVER ASSISTANT Height 165.1 cm (5' 5 ) 07/10/2024 8:29 AM SERVER ASSISTANT Body Mass Index 39.27 07/10/2024 8:29 AM SERVER ASSISTANT Plan of Treatment Health Maintenance Due Date [...] GLUCOSE DEVICE Routine 06/04/2024 8 :34 AM SERVER ASSISTANT PERIPHERAL RUN OFF CATH Routine 06/04/2024 7:58 AM SERVER ASSISTANT Atherosclerotic PVD with intermittent claudication (HCC) DIFFERENTIAL AUTO Routine 06/04/2024 7:0 0 AM SERVER ASSISTANT CBC WITH AUTO DIFFERENTIAL Routine 06/04/2024 7:00 AM SERVER ASSISTANT B ABO / RH CONFIRMATION TESTING STAT 06/04/2024 7:00 AM SERVER ASSISTANT EGFR Routine 06/04/2024 6:35 AM SERVER ASSISTANT Atherosclerotic PVD with intermittent claudication (HCC) ANTIBODY SCREEN Timed 06/04/2024 6:35 AM SERVER ASSISTANT Atherosclerotic PVD with intermittent claudication (HCC) ABO/RH Timed 06/04/2024 6:35 AM SERVER ASSISTANT Atherosclerotic PVD with intermittent claudication (HCC) PROTIME-INR Routine 06/04/2024 6:35 AM SERVER ASSISTANT Atherosclerotic PVD with intermittent claudication (HCC) TYPE AND SCREEN Timed 06/04/2024 6:35 AM SERVER ASSISTANT Atherosclerotic PVD with intermittent claudication (HCC) APTT Routine 06/04/2024 6:35 AM SERVER ASSISTANT Atherosclerotic PVD with intermittent claudication (HCC) Other disorder of circulatory system BASIC METABOLIC PANEL Routine 06/04/2024 6:35 AM SERVER ASSISTANT Atherosclerotic PVD with intermittent claudication (HCC) US ARTERIAL DOPPLER LOWER EXTREMITY BILATERAL Schedule Routine, Read Routine (OP Routine) 04/24/2024 10:33 AM SERVER ASSISTANT PVD (peripheral vascular disease) (HCC) from Last 3 Months Results * (ABNORMAL) POCT glucose (06/04/2024 8:34 AM SERVER ASSISTANT) Pathologist [facility] Glucose, POC 227(H) 70 - 199 mg/dL Blood 06/04/2024 8:34 AM SERVER ASSISTANT 06/04/2024 8:34 AM SERVER ASSISTANT Sammy Rojas MD LAB POCT ORDERABLES - DEVICE Fin al Result [facility] [address] [place] [address] * PERIPHERAL RUN OFF CATH (06/04/2024 7:58 AM SERVER ASSISTANT) Anatomical Region Laterality Modality X-Ray Angiograph y Narrative 06/04/2024 8:02 AM SERVER ASSISTANT Please see OpNote for result. Sammy Rojas MD CV CARDIAC CATH PROCEDURES Final Result * Differential, auto (06/04/2024 7:00 AM SERVER ASSISTANT) Pathologist [facility] Neutrophil abs 5.2 1.5 - 6.5 K/cumm Imm gran abs 0.0 0.0 - 0.1 K/cumm [facility] Lymphocyte abs 1.5 0.8 - 3.3 K/cumm [facility] Monocyte abs 0.6 0.2 - 0.8 K/cumm [facility] Eosinophil abs 0.2 0.0 - 0.5 K/cumm [facility] Basophil abs 0.1 0.0 - 0.1 K/cumm [facility] Neutrophil pct 69.1 % [facility] Comment: Interpretive Data Percent cell count reference ranges are not reported, since discordance with absolute values may lead to misinterpretation of CBC data. Current Interpretive Data was last revised on 2017. Imm gran pct 0.1 % [facility] Comment: Interpretive Data Percent cell count reference ranges are not reported, since discordance with absolute values may lead to misinterpretation of CBC data. Current Interpretive Data was last revised on 2017. Lymphocyte pct 20.1 % [facility] Comment: Interpretive Data Percent cell count reference ranges are not reported, since discordance with absolute values may lead to misinterpretation of CBC data. Current Interpretive Data was last revised on 2017. Monocyte pct 7.8 % [facility] Comment: Interpretive Data Percent cell count reference ranges are not reported, since discordance with absolute values may lead to misinterpretation of CBC data. Current Interpretive Data was last revised on 2017. Eosinophil pct 2.1 % [facility] Comment: Interpretive Data Percent cell count reference ranges are not reported, since discordance with absolute values may lead to misinterpretation of CBC data. Current Interpretive Data was last revised on 2017. Basophil pct 0.8 % [facility] Comment: Interpretive Data Percent cell count reference ranges are not reported, since discordance with absolute values may lead to misinterpretation of CBC data. Current Interpretive Data was last revised on 2017. Blood 06/04/2024 7:00 AM SERVER ASSISTANT 06/04/2024 7:02 AM SERVER ASSISTANT us Sammy Rojas MD LAB BLOOD ORDERABLES Final Resul t [facility]AN DANIEL [address] [place] [address] * ABO / Rh Confirmation Testing (06/04/2024 7:00 AM SERVER ASSISTANT) ABO/Rh Confirmation A Negative [facility] Blood 06/04/2024 7:00 AM SERVER ASSISTANT 06/04/2024 7:03 AM SERVER ASSISTANT Sammy Rojas MD LAB BLOOD ORDERABLES Final Resul t Performing Organization Address [facility] de Phone Number ZORAN [address] [place] [address] [facility] * CBC with auto differential (06/04/2024 7:00 AM SERVER ASSISTANT) [facility] WBC 7.5 3.8 - 9.9 K/cumm Hgb 13.4 11.9 - 15.5 g/dL [facility] Hct 40.0 35.6 - 45.5 % [facility] Plt 222 150 - 400 K/cumm [facility] MPV 10.6 9.1 - 12.3 fL [facility] RBC 4.54 3.90 - 5.20 M/cumm [facility] MCV 88.1 81.3 - 96.4 fL [facility] MCH 29.5 27.1 - 33.3 pg [facility] MCHC 33.5 32.3 - 35.7 g/dL [facility] RDW CV 12.8 11.1 - 14.9 % [facility] RDW SD 41.2 35.7 - 48.1 fL [facility] NRBC abs 0.00 0.00 - 0.01 K/cumm [facility] Blood 06/04/2024 7:00 AM SERVER ASSISTANT 06/04/2024 7:02 AM SERVER ASSISTANT Sammy Rojas MD LAB BLOOD ORDERABLES Final Resul t Performing Organization Address [facility] de Phone Number ZORAN [address] [facility] [place] [address] * (ABNORMAL) eGFR (06/04/2024 6:35 AM SERVER ASSISTANT) [facility] eGFR 32(L) >=60 mL/min/1. 73 m2 [...] last reviewed 2021. Blood 06/04/2024 6:35 AM SERVER ASSISTANT 06/04/2024 6:39 AM SERVER ASSISTANT Sammy Rojas MD LAB BLOOD ORDERABLES Final Resul t Performing Organization Address City/[facility] Co de Phone Number [address] [employer] [place] [address] * ABO/Rh (06/04/2024 6:35 AM SERVER ASSISTANT) ABO/Rh A Negative Blood 06/04/2024 6:35 AM SERVER ASSISTANT 06/04/2024 6:39 AM SERVER ASSISTANT Narrative ZORAN - 06/04/2024 7:17 AM SERVER ASSISTANT Has the patient had Daratumumab or Isatuximab in the past 6 months?->Unknown Sammy Rojas MD LAB BLOOD BANK TEST ORDERABLES F inal Result [address] [employer] [place] [address] * aPTT (06/04/2024 6:35 AM SERVER ASSISTANT) aPTT 24 22 - 37 sec Comment: Interpretive data aPTT test has not been evaluated for monitoring heparin therapy. The anti-Xa is the preferred test. Current interpretive data was last revised on 2019. Blood 06/04/2024 6:35 AM SERVER ASSISTANT 06/04/2024 6:39 AM SERVER ASSISTANT Sammy Rojas MD LAB BLOOD ORDERABLES Final Resul t Performing Organization Address [facility] de Phone Number [address] [place] [address] * Protime-INR (06/04/2024 6:35 AM SERVER ASSISTANT) Pathologist [facility] PT 13.8 12.0 - 14.6 sec INR 1.0 0.9 - 1.2 [facility] Comment: Ref Range High Interpretive data Oral anticoagulant therapeutic ranges: Venous thromboembolism prophylaxis or treatment: 2.0-3.0 CARDIOLOGY Standard range: 2.0-3.0 High-intensity range: 2.5-3.5 Refer to indication-specific guidelines for appropriate target ranges for prosthetic heart valve replacement. Current interpretive data was last revised on 2019. Blood 06/04/2024 6:35 AM SERVER ASSISTANT 06/04/2024 6:39 AM SERVER ASSISTANT Sammy Rojas MD LAB BLOOD ORDERABLES Final Resul t Performing Organization Address City/[facility] Co de Phone Number [address] [place] [place] [address] * Antibody screen (06/04/2024 6:35 AM SERVER ASSISTANT) Pathologist [facility] Goran, indirect, Gel Interpretation Negative ABSC Blood 06/04/2024 6:35 AM SERVER ASSISTANT 06/04/2024 6:39 AM SERVER ASSISTANT Narrative ZORAN - 06/04/2024 7:17 AM SERVER ASSISTANT Has the patient had Daratumumab or Isatuximab in the past 6 months?->Unknown Sammy Rojas MD LAB BLOOD BANK TEST ORDERABLES F inal Result Performing Organization Address City/[facility]/ZIP Co de Phone Number ZORAN [address] [place] [address] * (ABNORMAL) Basic metabolic panel (06/04/2024 6:35 AM SERVER ASSISTANT) Sodium 136 135 - 145 mmol/L Potassium, pl 3.4 3.3 - 4.9 mmol/L [facility] Comment:Hemolyzed; Potassium value may be falsely elevated by as much as 1.0 mmol/L. Suggest redraw and reanalysis. Chloride 99 97 - 110 mmol/L [facility] CO2 25 22 - 32 mmol/L [facility] Anion gap 12 2 - 15 mmol/L [facility] BUN 22 6 - 25 mg/dL [facility] Creatinine 1.68(H) 0.60 - 1.10 mg/dL [facility] Glucose 277(H) 70 - 199 mg/dL [facility] Comment: Interpretive Data Fasting glucose >/= [...] 2022. Calcium 8.9 8.5 - 10.3 mg/dL [facility] Blood 06/04/2024 6:35 AM SERVER ASSISTANT 06/04/2024 6:39 AM SERVER ASSISTANT Sammy Rojas MD LAB BLOOD ORDERABLES Final Resul t Performing Organization Address City/[facility]/ZIP Co de Phone Number [facility] [address] [facility] [place] [address] * US Arterial Doppler Lower Extremity Bilateral (04/24/2024 10:33 AM SERVER ASSISTANT) Anatomical Region Laterality Modality Vascular Bilateral Ultrasound 04/24/2024 9:38 AM SERVER ASSISTANT Narrative 04/25/2024 1:31 PM SERVER ASSISTANT Vascular & Vein Surgery [address] [place] [address] Lower Extremity Arterial Doppler Report Patient Name: AMADA GUEVARA A : 1950 Study Date: 04/24/2024 9:38:00 AM Gender: F Supervisor Gelatin Plant: Sanjana Pool RVT Location: VVSE Ref Provider: [...] Lt Calf Pressure ? 68 mmHg Rt CLAMP TRUCK DRIVER Pressure ?67 mmHg ? Lt CLAMP TRUCK DRIVER Pressure ?66 mmHg Rt DPA Pressure ?75 [...] above. Electronically Signed By: Sammy Rojas MD [facility] 2024-04-25 13:31:01 SERVER ASSISTANT Procedure Note Sammy Rojas MD - 04/25/2024 Vascular & Vein Surgery [address] [place] [address]. [place] [address] Lower Extremity Arterial Doppler Report Patient Name: AMADA GUEVARA A : 1950 Study Date: 04/24/2024 9:38:00 AM Gender: F Supervisor Gelatin Plant: Sanjana Pool RVT Location: VVSE Ref Provider: [...] mmHg Lt Calf Pressure 68 mmHg Rt CLAMP TRUCK DRIVER Pressure 67 mmHg Lt CLAMP TRUCK DRIVER Pressure 66 mmHg Rt DPA Pressure 75 [...] above. Electronically Signed By: Sammy Rojas MD [facility] 2024-04-25 13:31:01 SERVER ASSISTANT Samym Rojas MD [facility] PROCEDURES Final Result from Last 3 Months Insurance [facility] Advance Directives For more information, please contact: [phone] * Full Code (Latest Code Status on File) Date Activated Date Inactivated Comments 06/04/2024 8:15 AM 06/04/2024 5:59 PM Care Teams Window Treatment Installer Relationship Specialty Start Date End Date Eric Wen DO [address] [facility] [address] [place], [place] [id number] PCP - General Internal Medicine 04/05/24
--- OUTSIDE RECORDS SUMMARY | 2024-07-17 15:23 | XMS_ITS | Clinical Summary ---
Author Organization [facility] Address [address] [facility] [place] [place] [address] Phone Care Team Providers Care Plan Nurse Name Role Phone Unavailable Primary Care Provider Unavailabl e Social History Tobacco Use Types Packs/Day Years Used Date Smoking Tobacco: Never Assessed Comments Unknown Sex and Gender Information Value Date Recorded Sex Assigned at Not on file Legal Sex Female 1:49 PM BUSH REGENERATOR Gender Identity Not on file Sexual Orientation [...]
--- OUTSIDE RECORDS SUMMARY | 2024-07-17 15:23 | XMS_ITS | Referral Summary ---
Author Organization [address] [address] Care Team Providers Care Head Inspector And Center Marker Name Role Phone Eric Wen DO Primary Care Provider [phone] Encounters Date Type Department Care Team Description 07/10/2024 Orders Only [facility] Vascular at [address] [address] Sammy Rojas MD Aftercare following surgery of the circulatory system (Primary Dx) 07/10/2024 8:45 AM NETWORK LEAD Office Visit [facility] Vascular at [address] [address] Sammy Rojas MD PVD (peripheral vascular disease) (HCC) (Primary Dx); Primary hypertension; Mixed hyperlipidemia 06/04/2024 7:30 AM NETWORK LEAD - 06/04/2024 8:30 AM NETWORK LEAD Surgery [facility] [address] [place] [id number] Sammy oRjas MD BILATERAL LOWER EXTREMITY ANGIOGRAM WITH POSSIBLE INTERVENTION AND WITH RIGHT GROIN ACCESS 06/04/2024 5:51 AM NETWORK LEAD - 06/04/2024 1:59 PM NETWORK LEAD Hospital Encounter [facility] [address] [place] [id number] Sammy Rojas MD Atherosclerotic PVD with intermittent claudication (HCC); Other disorder of circulatory system Discharge Disposition: Discharge to home or self care 05/22/2024 Documentation [facility] Vascular and Vein Surgery [address] [facility] [address] [place] [id number] Haley Jenkins RN 05/22/2024 9:15 AM NETWORK LEAD Office Visit [facility] Vascular at [address] [place] [address] Sammy Rojas MD PVD (peripheral vascular disease) ([facility]) (Primary Dx); Primary hypertension; Mixed hyperlipidemia 04/24/2024 10:00 AM NETWORK LEAD Ancillary Procedure [facility] Vascular and Vein Surgery at [address] [place] [address] PVD (peripheral vascular disease) ([facility]) from Last 3 Months Allergies Active Allergy [...] 500 mg capsule Take by mouth Active [id number]-tdr-[id number] ic acid-biotin 66.7-1,000 mcg tablet Take by mouth Active Jardiance 10 mg tablet Active Active Problems Problem Noted Date Diagnosed Date Atherosclerotic PVD with intermittent claudicati on 05/22/2024 PVD (peripheral vascular disease) 04/11/2024 Assessment & Plan (07/10/2024 8:46 AM NETWORK LEAD): Severe infrapopliteal occlusive disease, recommend 81 mg ASA, we discussed the importance of continuing ambulation and monitoring her feet with her diabetes. Follow up in 1 year with repeat noninvasives testing. Assessment & Plan (05/24/2024 10:29 AM NETWORK LEAD): Bilateral extremity severe occlusive disease with life-limiting [...] 04/11/2024 Assessment & Plan (07/10/2024 8:46 AM NETWORK LEAD): Stable continue losartan hydrochlorothiazide Assessment & Plan (05/24/2024 10:29 AM NETWORK LEAD): Stable continue losartan hydrochlorothiazide Assessment & Plan (04/11/2024 3:42 PM CDT): Impression: Chronic and stable. Plan: Continue Hyzaar Mixed hyperlipidemia 04/11/2024 Assessment & Plan (07/10/2024 8:46 AM NETWORK LEAD): Stable continue Crestor Assessment & Plan (05/24/2024 10:29 AM NETWORK LEAD): Stable continue Crestor Assessment & Plan (04/11/2024 3:42 PM CDT): Impression: Chronic stable. Plan: Continue rosuvastatin. Type 2 diabetes mellitus wit hout complication, without long-term current use of insulin ([facility]) 04/11/2024 Assessment & Plan (04/11/2024 [...] on file Legal Sex Female 3:33 AM NETWORK LEAD Gender Identity Not on file Sexual Orientation Not on file Last Filed Vital Signs Vital Sign Reading Time Taken Comments Blood Pressure 134/88 07/10/2024 8:29 AM NETWORK LEAD Pulse 84 07/10/2024 8:29 AM NETWORK LEAD Temperature 36.9 ??C (98.5 ??F) 06/04/2024 8:50 AM CS T Respiratory Rate 18 06/04/2024 1:40 PM NETWORK LEAD Oxygen Saturation 96% 07/10/2024 8:29 AM NETWORK LEAD Inhaled Oxygen Concentration - - Weight 107 kg (236 lb) 07/10/2024 8:29 AM NETWORK LEAD Height 165.1 cm (5' 5 ) 07/10/2024 8:29 AM NETWORK LEAD Body Mass Index 39.27 07/10/2024 8:29 AM NETWORK LEAD Plan of Treatment Not on file Procedures Procedure Name Priority Date/Time Associated Diagnosis Comments POCT GLUCOSE DEVICE Routine 06/04/2024 8 :34 AM NETWORK LEAD PERIPHERAL RUN OFF CATH Routine 06/04/2024 7:58 AM NETWORK LEAD Atherosclerotic PVD with intermittent claudication (HCC) DIFFERENTIAL AUTO Routine 06/04/2024 7:0 0 AM NETWORK LEAD CBC WITH AUTO DIFFERENTIAL Routine 06/04/2024 7:00 AM NETWORK LEAD B ABO / RH CONFIRMATION TESTING STAT 06/04/2024 7:00 AM NETWORK LEAD EGFR Routine 06/04/2024 6:35 AM NETWORK LEAD Atherosclerotic PVD with intermittent claudication (HCC) ANTIBODY SCREEN Timed 06/04/2024 6:35 AM NETWORK LEAD Atherosclerotic PVD with intermittent claudication (HCC) ABO/RH Timed 06/04/2024 6:35 AM NETWORK LEAD Atherosclerotic PVD with intermittent claudication (HCC) PROTIME-INR Routine 06/04/2024 6:35 AM NETWORK LEAD Atherosclerotic PVD with intermittent claudication (HCC) TYPE AND SCREEN Timed 06/04/2024 6:35 AM NETWORK LEAD Atherosclerotic PVD with intermittent claudication (HCC) APTT Routine 06/04/2024 6:35 AM NETWORK LEAD Atherosclerotic PVD with intermittent claudication (HCC) Other disorder of circulatory system BASIC METABOLIC PANEL Routine 06/04/2024 6:35 AM NETWORK LEAD Atherosclerotic PVD with intermittent claudication (HCC) US ARTERIAL DOPPLER LOWER EXTREMITY BILATERAL Schedule Routine, Read Routine (OP Routine) 04/24/2024 10:33 AM NETWORK LEAD PVD (peripheral vascular disease) (HCC) from Last 3 Months Results * (ABNORMAL) POCT glucose (06/04/2024 8:34 AM NETWORK LEAD) Glucose, POC 227(H) 70 - 199 mg/dL Blood 06/04/2024 8:34 AM NETWORK LEAD 06/04/2024 8:34 AM NETWORK LEAD Sammy Rojas MD LAB POCT ORDERABLES - DEVICE Fin al Result [facility] [address] [facility] [place] [address] * PERIPHERAL RUN OFF CATH (06/04/2024 7:58 AM NETWORK LEAD) Anatomical Region Laterality Modality X-Ray Angiograph y Narrative 06/04/2024 8:02 AM NETWORK LEAD Please see OpNote for result. Sammy Rojas MD CV CARDIAC CATH PROCEDURES Final Result * Differential, auto (06/04/2024 7:00 AM NETWORK LEAD) Pathologist [facility] Neutrophil abs 5.2 1.5 - 6.5 K/cumm Imm gran abs 0.0 0.0 - 0.1 K/cumm [facility] Lymphocyte abs 1.5 0.8 - 3.3 K/cumm [facility] Monocyte abs 0.6 0.2 - 0.8 K/cumm [facility] Eosinophil abs 0.2 0.0 - 0.5 K/cumm [facility] Basophil abs 0.1 0.0 - 0.1 K/cumm [facility] Neutrophil pct 69.1 % [facility] Comment: Interpretive Data Percent cell count reference ranges are not reported, since discordance with absolute values may lead to misinterpretation of CBC data. Current Interpretive Data was last revised on 2017. Imm gran pct 0.1 % [facility] Comment: Interpretive Data Percent cell count reference ranges are not reported, since discordance with absolute values may lead to misinterpretation of CBC data. Current Interpretive Data was last revised on 2017. Lymphocyte pct 20.1 % [facility] Comment: Interpretive Data Percent cell count reference ranges are not reported, since discordance with absolute values may lead to misinterpretation of CBC data. Current Interpretive Data was last revised on 2017. Monocyte pct 7.8 % [facility] Comment: Interpretive Data Percent cell count reference ranges are not reported, since discordance with absolute values may lead to misinterpretation of CBC data. Current Interpretive Data was last revised on 2017. Eosinophil pct 2.1 % [facility] Comment: Interpretive Data Percent cell count reference ranges are not reported, since discordance with absolute values may lead to misinterpretation of CBC data. Current Interpretive Data was last revised on 2017. Basophil pct 0.8 % [facility] Comment: Interpretive Data Percent cell count reference ranges are not reported, since discordance with absolute values may lead to misinterpretation of CBC data. Current Interpretive Data was last revised on 2017. Blood 06/04/2024 7:00 AM NETWORK LEAD 06/04/2024 7:02 AM NETWORK LEAD Sammy Rojas MD LAB BLOOD ORDERABLES Final Resul t Performing Organization Address City/[facility] Co de Phone Number [address] [address] * ABO / Rh Confirmation Testing (06/04/2024 7:00 AM NETWORK LEAD) Pathologist [facility] ABO/Rh Confirmation A Negative [facility] Blood 06/04/2024 7:00 AM NETWORK LEAD 06/04/2024 7:03 AM NETWORK LEAD Sammy Rojas MD LAB BLOOD ORDERABLES Final Resul t Performing Organization Address [facility] de Phone Number [address] [address] [facility] * CBC with auto differential (06/04/2024 7:00 AM NETWORK LEAD) [facility] WBC 7.5 3.8 - 9.9 K/cumm Hgb 13.4 11.9 - 15.5 g/dL [facility] Hct 40.0 35.6 - 45.5 % [facility] Plt 222 150 - 400 K/cumm [facility] MPV 10.6 9.1 - 12.3 fL [facility] RBC 4.54 3.90 - 5.20 M/cumm [facility] MCV 88.1 81.3 - 96.4 fL [facility] MCH 29.5 27.1 - 33.3 pg [facility] MCHC 33.5 32.3 - 35.7 g/dL [facility] RDW CV 12.8 11.1 - 14.9 % [facility] RDW SD 41.2 35.7 - 48.1 fL [facility] NRBC abs 0.00 0.00 - 0.01 K/cumm [facility] Blood 06/04/2024 7:00 AM NETWORK LEAD 06/04/2024 7:02 AM NETWORK LEAD us Sammy Rojas MD LAB BLOOD ORDERABLES Final Resul t [facility] [address] [facility] [place] [address] * (ABNORMAL) eGFR (06/04/2024 6:35 AM NETWORK LEAD) eGFR 32(L) >=60 mL/min/1. 73 m2 Comment: [...] last reviewed 2021. Blood 06/04/2024 6:35 AM NETWORK LEAD 06/04/2024 6:39 AM NETWORK LEAD Result [facility] Sammy Rojas MD LAB BLOOD ORDERABLES Final Resul t Performing Organization Address [facility] de Phone Number [address] [place] [address] * ABO/Rh (06/04/2024 6:35 AM NETWORK LEAD) ABO/Rh A Negative Blood 06/04/2024 6:35 AM NETWORK LEAD 06/04/2024 6:39 AM NETWORK LEAD Narrative [facility] - 06/04/2024 7:17 AM NETWORK LEAD Has the patient had Daratumumab or Isatuximab in the past 6 months?->Unknown Result [facility] Sammy Rojas MD LAB BLOOD BANK TEST ORDERABLES F inal Result Performing Organization Address [facility] de Phone Number [address] [address] * aPTT (06/04/2024 6:35 AM NETWORK LEAD) aPTT 24 22 - 37 sec Comment: Interpretive data aPTT test has not been evaluated for monitoring heparin therapy. The anti-Xa is the preferred test. Current interpretive data was last revised on 2019. Blood 06/04/2024 6:35 AM NETWORK LEAD 06/04/2024 6:39 AM NETWORK LEAD Result [facility] Sammy Rojas MD LAB BLOOD ORDERABLES Final Resul t Performing Organization Address [facility] de Phone Number [address] [place] [address] * Protime-INR (06/04/2024 6:35 AM NETWORK LEAD) PT 13.8 12.0 - 14.6 sec INR 1.0 0.9 - 1.2 [facility] Comment: Ref Range High Interpretive data Oral anticoagulant therapeutic ranges: Venous thromboembolism prophylaxis or treatment: 2.0-3.0 CARDIOLOGY Standard range: 2.0-3.0 High-intensity range: 2.5-3.5 Refer to indication-specific guidelines for appropriate target ranges for prosthetic heart valve replacement. Current interpretive data was last revised on 2019. Blood 06/04/2024 6:35 AM NETWORK LEAD 06/04/2024 6:39 AM NETWORK LEAD Sammy Rojas MD LAB BLOOD ORDERABLES Final Resul t Performing Organization Address [facility] de Phone Number [address] [address] * Antibody screen (06/04/2024 6:35 AM NETWORK LEAD) [facility] Goran, indirect, Gel Interpretation Negative ABSC Blood 06/04/2024 6:35 AM NETWORK LEAD 06/04/2024 6:39 AM NETWORK LEAD Narrative [facility] - 06/04/2024 7:17 AM NETWORK LEAD Has the patient had Daratumumab or Isatuximab in the past 6 months?->Unknown Sammy Rojas MD LAB BLOOD BANK TEST ORDERABLES F inal Result Performing Organization Address [facility] de Phone Number [address] [address] * (ABNORMAL) Basic metabolic panel (06/04/2024 6:35 AM NETWORK LEAD) [facility] Sodium 136 135 - 145 mmol/L Potassium, pl 3.4 3.3 - 4.9 mmol/L [facility] Comment:Hemolyzed; Potassium value may be falsely elevated by as much as 1.0 mmol/L. Suggest redraw and reanalysis. Chloride 99 97 - 110 mmol/L [facility] CO2 25 22 - 32 mmol/L [facility] Anion gap 12 2 - 15 mmol/L [facility] BUN 22 6 - 25 mg/dL [facility] Creatinine 1.68(H) 0.60 - 1.10 mg/dL [facility] Glucose 277(H) 70 - 199 mg/dL [facility] Comment: Interpretive Data Fasting glucose >/= [...] mg/dL [facility]ANI[facility] Blood 06/04/2024 6:35 AM NETWORK LEAD 06/04/2024 6:39 AM NETWORK LEAD us Sammy Rojas MD LAB BLOOD ORDERABLES Final Resul t [facility] [address] [facility] [place] [address] * US Arterial Doppler Lower Extremity Bilateral (04/24/2024 10:33 AM NETWORK LEAD) Anatomical Region Laterality Modality Vascular Bilateral Ultrasound 04/24/2024 9:38 AM NETWORK LEAD Narrative 04/25/2024 1:31 PM NETWORK LEAD Vascular & Vein Surgery [address] [place] [address] Lower Extremity Arterial Doppler Report Patient Name: AMADA GUEVARA A : 1950 Study Date: 04/24/2024 9:38:00 AM Gender: F Veterinary Medicine Doctor: Sanjana Pool RVT Location: [facility] Ref Provider: [...] Lt Calf Pressure ? 68 mmHg Rt STONE FABRICATOR Pressure ?67 mmHg ? Lt STONE FABRICATOR Pressure ?66 mmHg Rt DPA Pressure ?75 [...] above. Electronically Signed By: Sammy Rojas MD [facility] 2024-04-25 13:31:01 NETWORK LEAD Procedure Note Sammy Rojas MD - 04/25/2024 Vascular & Vein Surgery [address] [place] [address]. [place] [address] Lower Extremity Arterial Doppler Report Patient Name: AMADA GUEVARA A : 1950 Study Date: 04/24/2024 9:38:00 AM Gender: F Veterinary Medicine Doctor: Sanjana Pool RVT Location: [facility] Ref Provider: SAMMY ROJAS Quality: Adequate Order Provider: SAMMY ROJAS PROCEDURES: Arterial Report: Bilateral lower extremity arterial Doppler exam at rest. INDICATIONS: BLE claudication. HISTORY: Hypertension. Hyperlipidemia. Diabetic. PREVIOUS STUDIES: No previous studies for comparison. MEASUREMENTS: Right Value Left Value Rt Brachial Pressure 145 mmHg Lt Brachial Pressure 132 mmHg Rt Calf Pressure 57 mmHg Lt Calf Pressure 68 mmHg Rt STONE FABRICATOR Pressure 67 mmHg Lt STONE FABRICATOR Pressure 66 mmHg Rt DPA Pressure 75 [...] above. Electronically Signed By: Sammy Rojas MD [facility] 2024-04-25 13:31:01 NETWORK LEAD Sammy Rojas MD [facility] PROCEDURES Final Result from Last 3 Months Insurance [facility] Advance Directives For more information, please contact: [phone] * Full Code (Latest Code Status on File) Date Activated Date Inactivated Comments 06/04/2024 8:15 AM 06/04/2024 5:59 PM Care Teams Head Inspector And Center Marker Relationship Specialty Start Date End Date Eric Wen DO [address] [facility] [address] [place] [address] PCP - General Internal Medicine 04/05/24
[2024-07-17 16:03] LABS: Alanine Aminotransferase 13 U/L (6-35); Albumin Level 3.9 g/dL (3.5-5.1); Alkaline Phosphatase 173 U/L (38-126); Anion Gap 14 mmol/L (4-12); Aspartate Amino Transferase 18 U/L (14-36); Bilirubin,Total 1.1 mg/dL (0.2-1.3); Blood Urea Nitrogen 21 mg/dL (7-17); Calcium 8.3 mg/dL (8.4-10.2); Carbon Dioxide 22 mmol/L (22-30); Chloride 91 mmol/L (98-107); Estimated Glomerular Filt Rate 32; Glucose 692 mg/dL (65-110); Potassium 3.6 mmol/L (3.4-5.0); Sodium 127 mmol/L (137-145)
[2024-07-17 18:23] LABS: Hemoglobin A1C 13.3 % (<5.7)
== END 2024-07-17 14:31 | disposition home or self-care (01) ==
PROVIDERS: PCP Internal Medicine Nephrology; Visit Provider Internal Medicine
DX: I63.81 Other cerebral infarction due to occlusion or stenosis of small artery (principal); R90.82 White matter disease, unspecified; R53.83 Other fatigue; E11.8 Type 2 diabetes mellitus with unspecified complications; R79.89 Other specified abnormal findings of blood chemistry
CPT/HCPCS: 36415; 70450; 80053; 83036; 84443

== ENCOUNTER 2024-07-17 16:45 | Emergency (ER) | payer OTHER, SELFPAY ==
[2024-07-17 17:39] VITALS: BP 141/71; PULSE 71; PULSE 78; RESP 18; TEMP 36.5; O2SAT 97; O2SAT 98
[2024-07-17 17:41] LABS: Glucose Point of Care > 500 mg/dl (65-105)
[2024-07-17 18:07] LABS: Basophils Absolute Auto 0.1 K/mm3 (0.0-0.1); Eosinophils Absolute Auto 0.1 K/mm3 (0-0.3); Eosinophils Percent Auto 1.6 % (0-4.4); Hematocrit 41.8 % (37.0-47.0); Hemoglobin 14.4 g/dL (12.0-15.0); Immature Granulocyte Absolute 0.02 K/mm3 (0.00-0.031); Immature Granulocyte Percent A 0.2 % (0-0.5); Lymphocytes Absolute Auto 1.95 K/mm3 (0.9-3.2); Lymphocytes Percent Auto 24.3 % (18.3-44.2); Mean Corpuscular HGB Conc 34.4 g/dl (32-36); Mean Corpuscular Hemoglobin 29.7 pg (26-34); Mean Corpuscular Volume 86.2 fl (80-100); Mean Platelet Volume 11.5 fl (7.4-10.4); Monocytes Absolute Auto 0.6 K/mm3 (0.1-0.6); Neutrophils Absolute Auto 5.3 K/mm3 (1.3-6.7); Neutrophils Percent Auto 65.9 % (45.5-73.1); Platelet Count Result 217 k/mm3 (150-375); Red Blood Count 4.85 M/mm3 (4.2-5.4); Red Cell Distribution Width 13.2 % (11.5-14.5)
[2024-07-17 18:16] LABS: Add Urine Microscopic? NO; Appearance Urine Clear (Clear); Bilirubin Urine Negative (Negative); Blood Urine Negative (Negative); Color Urine Yellow (Yellow); Glucose Urine UA 3+ mg/dL (Negative); Ketones Urine Negative (Negative); Leukocyte Esterase Ur Negative LEU/UL (Negative); Nitrate Urine Negative (Negative); Protein Urine Negative (Negative); Specific Grav Ur 1.027 (1.001-1.035); Urobilinogen Urine 0.2 mg/dL (<2.0)
[2024-07-17 18:21] LABS: Alanine Aminotransferase 14 U/L (6-35); Alkaline Phosphatase 203 U/L (38-126); Anion Gap 12 mmol/L (4-12); Aspartate Amino Transferase 15 U/L (14-36); Blood Urea Nitrogen 21 mg/dL (7-17); Calcium 8.5 mg/dL (8.4-10.2); Carbon Dioxide 25 mmol/L (22-30); Chloride 90 mmol/L (98-107); Estimated CRCL calculation 33 ml/min; Estimated Glomerular Filt Rate 30; Magnesium 1.8 mg/dL (1.6-2.3); Phosphorus 2.7 mg/dL (2.5-4.5); Potassium 3.5 mmol/L (3.4-5.0); Sodium 127 mmol/L (137-145)
[2024-07-17 18:22] LABS: Beta-Hydroxybutyrate/Acetoacetate 0.31 mmol/L (0.02-0.27)
[2024-07-17 18:36] LABS: Glucose 624 mg/dL (65-110)
--- OUTSIDE RECORDS SUMMARY | 2024-07-17 18:37 | XMS_ITS | Referral Summary ---
Author Organization [address] [address] Care Team Providers Care Mortgage Lender Name Role Phone Eric Wen DO Primary Care Provider [phone] Encounters Date Type Department Care Team Description 07/10/[address] [facility] Medical Group Vascular at [address] [address] Sammy Rojas MD Aftercare following surgery of the circulatory system (Primary Dx) 07/10/2024 8:45 AM JIGGER CROWN POUNCING MACHINE OPERATOR Office Visit [facility] Medical [facility] Vascular at [address] [address] Sammy Rojas MD PVD (peripheral vascular disease) (HCC) (Primary Dx); Primary hypertension; Mixed hyperlipidemia 06/04/2024 7:30 AM JIGGER CROWN POUNCING MACHINE OPERATOR - 06/04/2024 8:30 AM JIGGER CROWN POUNCING MACHINE OPERATOR Surgery [facility] Cardiac Offset Proof Press Operator [address] [place] [id number] Sammy Rojas MD BILATERAL LOWER EXTREMITY ANGIOGRAM WITH POSSIBLE INTERVENTION AND WITH RIGHT GROIN ACCESS 06/04/2024 5:51 AM JIGGER CROWN POUNCING MACHINE OPERATOR - 06/04/2024 1:59 PM JIGGER CROWN POUNCING MACHINE OPERATOR Hospital Encounter [facility] Cardiac Offset Proof Press Operator [address] [place] [phone] Sammy Rojas MD Atherosclerotic PVD with intermittent claudication (HCC); Other disorder of circulatory system Discharge Disposition: Discharge to home or self care 05/22/2024 Documentation [facility] Vascular and Vein Surgery [address] [facility] [address] [place] [phone] Haley Jenkins RN 05/22/2024 9:15 AM JIGGER CROWN POUNCING MACHINE OPERATOR Office Visit [facility] Vascular at [address] [place] [address] Sammy Rojas MD PVD (peripheral vascular disease) ([facility]) (Primary Dx); Primary hypertension; Mixed hyperlipidemia 04/24/2024 10:00 AM JIGGER CROWN POUNCING MACHINE OPERATOR Ancillary Procedure [facility] Vascular and Vein Surgery at [address] [place] [address] PVD (peripheral vascular disease) ([facility]) from Last 3 [...] 500 mg capsule Take by mouth Active fruymbko-akx-adb ic acid-biotin 66.7-1,000 mcg tablet Take by mouth Active Jardiance 10 mg tablet Active Active Problems Problem Noted Date Diagnosed Date Atherosclerotic PVD with intermittent claudicati on 05/22/2024 PVD (peripheral vascular disease) 04/11/2024 Assessment & Plan (07/10/2024 8:46 AM JIGGER CROWN POUNCING MACHINE OPERATOR): Severe infrapopliteal occlusive disease, recommend 81 mg ASA, we discussed the importance of continuing ambulation and monitoring her feet with her diabetes. Follow up in 1 year with repeat noninvasives testing. Assessment & Plan (05/24/2024 10:29 AM JIGGER CROWN POUNCING MACHINE OPERATOR): Bilateral extremity severe occlusive disease with life-limiting [...] 04/11/2024 Assessment & Plan (07/10/2024 8:46 AM JIGGER CROWN POUNCING MACHINE OPERATOR): Stable continue losartan hydrochlorothiazide Assessment & Plan (05/24/2024 10:29 AM JIGGER CROWN POUNCING MACHINE OPERATOR): Stable continue losartan hydrochlorothiazide Assessment & Plan (04/11/2024 3:42 PM CDT): Impression: Chronic and stable. Plan: Continue Hyzaar Mixed hyperlipidemia 04/11/2024 Assessment & Plan (07/10/2024 8:46 AM JIGGER CROWN POUNCING MACHINE OPERATOR): Stable continue Crestor Assessment & Plan (05/24/2024 10:29 AM JIGGER CROWN POUNCING MACHINE OPERATOR): Stable continue Crestor Assessment & Plan (04/11/2024 3:42 PM CDT): Impression: Chronic stable. Plan: Continue rosuvastatin. Type 2 diabetes mellitus wit hout complication, without long-term current use of insulin ([facility]) 04/11/2024 Assessment & Plan [...] on file Legal Sex Female 3:33 AM JIGGER CROWN POUNCING MACHINE OPERATOR Gender Identity Not on file Sexual Orientation Not on file Last Filed Vital Signs Vital Sign Reading Time Taken Comments Blood Pressure 134/88 07/10/2024 8:29 AM JIGGER CROWN POUNCING MACHINE OPERATOR Pulse 84 07/10/2024 8:29 AM JIGGER CROWN POUNCING MACHINE OPERATOR Temperature 36.9 ??C (98.5 ??F) 06/04/2024 8:50 AM CS T Respiratory Rate 18 06/04/2024 1:40 PM JIGGER CROWN POUNCING MACHINE OPERATOR Oxygen Saturation 96% 07/10/2024 8:29 AM JIGGER CROWN POUNCING MACHINE OPERATOR Inhaled Oxygen Concentration - - Weight 107 kg (236 lb) 07/10/2024 8:29 AM JIGGER CROWN POUNCING MACHINE OPERATOR Height 165.1 cm (5' 5 ) 07/10/2024 8:29 AM JIGGER CROWN POUNCING MACHINE OPERATOR Body Mass Index 39.27 07/10/2024 8:29 AM JIGGER CROWN POUNCING MACHINE OPERATOR Plan of Treatment Not on file Procedures Procedure Name Priority Date/Time Associated Diagnosis Comments POCT GLUCOSE DEVICE Routine 06/04/2024 8 :34 AM JIGGER CROWN POUNCING MACHINE OPERATOR PERIPHERAL RUN OFF CATH Routine 06/04/2024 7:58 AM JIGGER CROWN POUNCING MACHINE OPERATOR Atherosclerotic PVD with intermittent claudication (HCC) DIFFERENTIAL AUTO Routine 06/04/2024 7:0 0 AM JIGGER CROWN POUNCING MACHINE OPERATOR CBC WITH AUTO DIFFERENTIAL Routine 06/04/2024 7:00 AM JIGGER CROWN POUNCING MACHINE OPERATOR B ABO / RH CONFIRMATION TESTING STAT 06/04/2024 7:00 AM JIGGER CROWN POUNCING MACHINE OPERATOR EGFR Routine 06/04/2024 6:35 AM JIGGER CROWN POUNCING MACHINE OPERATOR Atherosclerotic PVD with intermittent claudication (HCC) ANTIBODY SCREEN Timed 06/04/2024 6:35 AM JIGGER CROWN POUNCING MACHINE OPERATOR Atherosclerotic PVD with intermittent claudication (HCC) ABO/RH Timed 06/04/2024 6:35 AM JIGGER CROWN POUNCING MACHINE OPERATOR Atherosclerotic PVD with intermittent claudication (HCC) PROTIME-INR Routine 06/04/2024 6:35 AM JIGGER CROWN POUNCING MACHINE OPERATOR Atherosclerotic PVD with intermittent claudication (HCC) TYPE AND SCREEN Timed 06/04/2024 6:35 AM JIGGER CROWN POUNCING MACHINE OPERATOR Atherosclerotic PVD with intermittent claudication (HCC) APTT Routine 06/04/2024 6:35 AM JIGGER CROWN POUNCING MACHINE OPERATOR Atherosclerotic PVD with intermittent claudication (HCC) Other disorder of circulatory system BASIC METABOLIC PANEL Routine 06/04/2024 6:35 AM JIGGER CROWN POUNCING MACHINE OPERATOR Atherosclerotic PVD with intermittent claudication (HCC) US ARTERIAL DOPPLER LOWER EXTREMITY BILATERAL Schedule Routine, Read Routine (OP Routine) 04/24/2024 10:33 AM JIGGER CROWN POUNCING MACHINE OPERATOR PVD (peripheral vascular disease) (HCC) from Last 3 Months Results * (ABNORMAL) POCT glucose (06/04/2024 8:34 AM JIGGER CROWN POUNCING MACHINE OPERATOR) Glucose, POC 227(H) 70 - 199 mg/dL Blood 06/04/2024 8:34 AM JIGGER CROWN POUNCING MACHINE OPERATOR 06/04/2024 8:34 AM JIGGER CROWN POUNCING MACHINE OPERATOR Sammy Rojas MD LAB POCT ORDERABLES - DEVICE Fin al Result [facility] [address] [facility] Department [place] [address] * PERIPHERAL RUN OFF CATH (06/04/2024 7:58 AM JIGGER CROWN POUNCING MACHINE OPERATOR) Anatomical Region Laterality Modality X-Ray Angiograph y Narrative 06/04/2024 8:02 AM JIGGER CROWN POUNCING MACHINE OPERATOR Please see OpNote for result. Sammy Rojas MD CV CARDIAC CATH PROCEDURES Final Result * Differential, auto (06/04/2024 7:00 AM JIGGER CROWN POUNCING MACHINE OPERATOR) Pathologist [facility] Neutrophil abs 5.2 1.5 - 6.5 K/cumm Imm gran abs 0.0 0.0 - 0.1 K/cumm [facility] Lymphocyte abs 1.5 0.8 - 3.3 K/cumm [facility] Monocyte abs 0.6 0.2 - 0.8 K/cumm [facility] Eosinophil abs 0.2 0.0 - 0.5 K/cumm [facility] Basophil abs 0.1 0.0 - 0.1 K/cumm [facility] Neutrophil pct 69.1 % [facility] Comment: Interpretive Data Percent cell count reference ranges are not reported, since discordance with absolute values may lead to misinterpretation of CBC data. Current Interpretive Data was last revised on 2017. Imm gran pct 0.1 % [facility] Comment: Interpretive Data Percent cell count reference ranges are not reported, since discordance with absolute values may lead to misinterpretation of CBC data. Current Interpretive Data was last revised on 2017. Lymphocyte pct 20.1 % [facility] Comment: Interpretive Data Percent cell count reference ranges are not reported, since discordance with absolute values may lead to misinterpretation of CBC data. Current Interpretive Data was last revised on 2017. Monocyte pct 7.8 % [facility] Comment: Interpretive Data Percent cell count reference ranges are not reported, since discordance with absolute values may lead to misinterpretation of CBC data. Current Interpretive Data was last revised on 2017. Eosinophil pct 2.1 % [facility] Comment: Interpretive Data Percent cell count reference ranges are not reported, since discordance with absolute values may lead to misinterpretation of CBC data. Current Interpretive Data was last revised on 2017. Basophil pct 0.8 % [facility] Comment: Interpretive Data Percent cell count reference ranges are not reported, since discordance with absolute values may lead to misinterpretation of CBC data. Current Interpretive Data was last revised on 2017. Blood 06/04/2024 7:00 AM JIGGER CROWN POUNCING MACHINE OPERATOR 06/04/2024 7:02 AM JIGGER CROWN POUNCING MACHINE OPERATOR Sammy Rojas MD LAB BLOOD ORDERABLES Final Resul t Performing Organization Address City/[facility] Co de Phone Number [address] [address] * ABO / Rh Confirmation Testing (06/04/2024 7:00 AM JIGGER CROWN POUNCING MACHINE OPERATOR) Pathologist [facility] ABO/Rh Confirmation A Negative [facility] Blood 06/04/2024 7:00 AM JIGGER CROWN POUNCING MACHINE OPERATOR 06/04/2024 7:03 AM JIGGER CROWN POUNCING MACHINE OPERATOR Sammy Rojas MD LAB BLOOD ORDERABLES Final Resul t Performing Organization Address [facility] de Phone Number [address] [address] [facility] * CBC with auto differential (06/04/2024 7:00 AM JIGGER CROWN POUNCING MACHINE OPERATOR) [facility] WBC 7.5 3.8 - 9.9 K/cumm Hgb 13.4 11.9 - 15.5 g/dL [facility] Hct 40.0 35.6 - 45.5 % [facility] Plt 222 150 - 400 K/cumm [facility] MPV 10.6 9.1 - 12.3 fL [facility] RBC 4.54 3.90 - 5.20 M/cumm [facility] MCV 88.1 81.3 - 96.4 fL [facility] MCH 29.5 27.1 - 33.3 pg [facility] MCHC 33.5 32.3 - 35.7 g/dL [facility] RDW CV 12.8 11.1 - 14.9 % [facility] RDW SD 41.2 35.7 - 48.1 fL [facility] NRBC abs 0.00 0.00 - 0.01 K/cumm [facility] Blood 06/04/2024 7:00 AM JIGGER CROWN POUNCING MACHINE OPERATOR 06/04/2024 7:02 AM JIGGER CROWN POUNCING MACHINE OPERATOR us Sammy Rojas MD LAB BLOOD ORDERABLES Final Resul t [facility] [address] [facility] Department [place] [address] * (ABNORMAL) eGFR (06/04/2024 6:35 AM JIGGER CROWN POUNCING MACHINE OPERATOR) eGFR 32(L) >=60 mL/min/1. 73 m2 Comment: [...] last reviewed 2021. Blood 06/04/2024 6:35 AM JIGGER CROWN POUNCING MACHINE OPERATOR 06/04/2024 6:39 AM JIGGER CROWN POUNCING MACHINE OPERATOR Result [facility] Sammy Roajs MD LAB BLOOD ORDERABLES Final Resul t Performing Organization Address [facility] de Phone Number [address] [place] [address] * ABO/Rh (06/04/2024 6:35 AM JIGGER CROWN POUNCING MACHINE OPERATOR) ABO/Rh A Negative Blood 06/04/2024 6:35 AM JIGGER CROWN POUNCING MACHINE OPERATOR 06/04/2024 6:39 AM JIGGER CROWN POUNCING MACHINE OPERATOR Narrative [facility] - 06/04/2024 7:17 AM JIGGER CROWN POUNCING MACHINE OPERATOR Has the patient had Daratumumab or Isatuximab in the past 6 months?->Unknown Result [facility] Sammy Rojas MD LAB BLOOD BANK TEST ORDERABLES F inal Result Performing Organization Address [facility] de Phone Number [address] [address] * aPTT (06/04/2024 6:35 AM JIGGER CROWN POUNCING MACHINE OPERATOR) aPTT 24 22 - 37 sec Comment: Interpretive data aPTT test has not been evaluated for monitoring heparin therapy. The anti-Xa is the preferred test. Current interpretive data was last revised on 2019. Blood 06/04/2024 6:35 AM JIGGER CROWN POUNCING MACHINE OPERATOR 06/04/2024 6:39 AM JIGGER CROWN POUNCING MACHINE OPERATOR Result [facility] Sammy Rojas MD LAB BLOOD ORDERABLES Final Resul t Performing Organization Address [facility] de Phone Number [address] [place] [address] * Protime-INR (06/04/2024 6:35 AM JIGGER CROWN POUNCING MACHINE OPERATOR) PT 13.8 12.0 - 14.6 sec INR 1.0 0.9 - 1.2 [facility] Comment: Ref Range High Interpretive data Oral anticoagulant therapeutic ranges: Venous thromboembolism prophylaxis or treatment: 2.0-3.0 CARDIOLOGY Standard range: 2.0-3.0 High-intensity range: 2.5-3.5 Refer to indication-specific guidelines for appropriate target ranges for prosthetic heart valve replacement. Current interpretive data was last revised on 2019. Blood 06/04/2024 6:35 AM JIGGER CROWN POUNCING MACHINE OPERATOR 06/04/2024 6:39 AM JIGGER CROWN POUNCING MACHINE OPERATOR Sammy Rojas MD LAB BLOOD ORDERABLES Final Resul t Performing Organization Address [facility] de Phone Number [address] [phone] * Antibody screen (06/04/2024 6:35 AM JIGGER CROWN POUNCING MACHINE OPERATOR) [facility] Goran, indirect, Gel Interpretation Negative ABSC Blood 06/04/2024 6:35 AM JIGGER CROWN POUNCING MACHINE OPERATOR 06/04/2024 6:39 AM JIGGER CROWN POUNCING MACHINE OPERATOR Narrative [facility] - 06/04/2024 7:17 AM JIGGER CROWN POUNCING MACHINE OPERATOR Has the patient had Daratumumab or Isatuximab in the past 6 months?->Unknown Sammy Rojas MD LAB BLOOD BANK TEST ORDERABLES F inal Result Performing Organization Address [facility] de Phone Number [address] [address] * (ABNORMAL) Basic metabolic panel (06/04/2024 6:35 AM JIGGER CROWN POUNCING MACHINE OPERATOR) [facility] Sodium 136 135 - 145 mmol/L Potassium, pl 3.4 3.3 - 4.9 mmol/L [facility] Comment:Hemolyzed; Potassium value may be falsely elevated by as much as 1.0 mmol/L. Suggest redraw and reanalysis. Chloride 99 97 - 110 mmol/L [facility] CO2 25 22 - 32 mmol/L [facility] Anion gap 12 2 - 15 mmol/L [facility] BUN 22 6 - 25 mg/dL [facility] Creatinine 1.68(H) 0.60 - 1.10 mg/dL [facility] Glucose 277(H) 70 - 199 mg/dL [facility] Comment: Interpretive Data Fasting glucose [...] mg/dL [facility] Blood 06/04/2024 6:35 AM JIGGER CROWN POUNCING MACHINE OPERATOR 06/04/2024 6:39 AM JIGGER CROWN POUNCING MACHINE OPERATOR us Sammy Rojas MD LAB BLOOD ORDERABLES Final Resul t [facility] [address] [facility] Department [place] [address] * US Arterial Doppler Lower Extremity Bilateral (04/24/2024 10:33 AM JIGGER CROWN POUNCING MACHINE OPERATOR) Anatomical Region Laterality Modality Vascular Bilateral Ultrasound 04/24/2024 9:38 AM JIGGER CROWN POUNCING MACHINE OPERATOR Narrative 04/25/2024 1:31 PM JIGGER CROWN POUNCING MACHINE OPERATOR Vascular & Vein Surgery [address] [place] [address] Lower Extremity Arterial Doppler Report Patient Name: AMADA GUEVARA A : 1950 Study Date: 04/24/2024 9:38:00 AM Gender: F Oyster Tonger: Sanjana Pool RVT Location: VVSE Ref Provider: [...] Lt Calf Pressure ? 68 mmHg Rt ONION TOPPER Pressure ?67 mmHg ? Lt ONION TOPPER Pressure ?66 mmHg Rt DPA Pressure ?75 [...] Electronically Signed By: Sammy Rojas MD [facility] 2024-04-25 13:31:01 JIGGER CROWN POUNCING MACHINE OPERATOR Procedure Note Sammy Rojas MD - 04/25/2024 Vascular & Vein Surgery [address] [place] [address]. [place] [address] Lower Extremity Arterial Doppler Report Patient Name: AMADA GUEVARA A : 1950 Study Date: 04/24/2024 9:38:00 AM Gender: F Oyster Tonger: Sanjana Pool RVT Location: [facility] Ref Provider: SAMMY ROJAS Quality: Adequate Order Provider: SAMMY ROJAS PROCEDURES: Arterial Report: Bilateral lower extremity arterial Doppler exam at rest. INDICATIONS: BLE claudication. HISTORY: Hypertension. Hyperlipidemia. Diabetic. PREVIOUS STUDIES: No previous studies for comparison. MEASUREMENTS: Right Value Left Value Rt Brachial Pressure 145 mmHg Lt Brachial Pressure 132 mmHg Rt Calf Pressure 57 mmHg Lt Calf Pressure 68 mmHg Rt ONION TOPPER Pressure 67 mmHg Lt ONION TOPPER Pressure 66 mmHg Rt DPA Pressure 75 [...] Electronically Signed By: Sammy Rojas MD [facility] 2024-04-25 13:31:01 JIGGER CROWN POUNCING MACHINE OPERATOR Sammy Rojas MD [facility] PROCEDURES Final Result from Last 3 Months Insurance [employer] Advance Directives For more information, please contact: [phone] * Full Code (Latest Code Status on File) Date Activated Date Inactivated Comments 06/04/2024 8:15 AM 06/04/2024 5:59 PM Care Teams Mortgage Lender Relationship Specialty Start Date End Date Eric Wen DO [address] [facility] [address] [place] [address] PCP - General Internal Medicine 04/05/24
--- OUTSIDE RECORDS SUMMARY | 2024-07-17 18:37 | XMS_ITS | Clinical Summary ---
Author Organization [facility] [address] Address [address] [place] [phone] Care Team Providers Care Tabber Name Role Phone Eric Wen DO Primary Care Provider [phone] Allergies Active Allergy Reactions Criticality Noted Date [...] 500 mg capsule Take by mouth Active pwroxzxr-aza-byn ic acid-biotin 66.7-1,000 mcg tablet Take by mouth Active Jardiance 10 mg tablet 5 Active Active Problems Problem Noted Date Diagnosed Date Atherosclerotic PVD with intermittent claudicati on 05/22/2024 PVD (peripheral vascular disease) 04/11/2024 Assessment & Plan (07/10/2024 8:46 AM PROOF INSPECTOR): Severe infrapopliteal occlusive disease, recommend 81 mg ASA, we discussed the importance of continuing ambulation and monitoring her feet with her diabetes. Follow up in 1 year with repeat noninvasives testing. Assessment & Plan (05/24/2024 10:29 AM PROOF INSPECTOR): Bilateral extremity severe occlusive disease with [...] 04/11/2024 Assessment & Plan (07/10/2024 8:46 AM PROOF INSPECTOR): Stable continue losartan hydrochlorothiazide Assessment & Plan (05/24/2024 10:29 AM PROOF INSPECTOR): Stable continue losartan hydrochlorothiazide Assessment & Plan (04/11/2024 3:42 PM CDT): Impression: Chronic and stable. Plan: Continue Hyzaar Mixed hyperlipidemia 04/11/2024 Assessment & Plan (07/10/2024 8:46 AM PROOF INSPECTOR): Stable continue Crestor Assessment & Plan (05/24/2024 10:29 AM PROOF INSPECTOR): Stable continue Crestor Assessment & Plan (04/11/2024 3:42 PM CDT): Impression: Chronic stable. Plan: Continue rosuvastatin. Type 2 diabetes mellitus wit hout complication, without long-term current use of insulin ([facility]) 04/11/2024 Assessment & Plan (04/11/2024 3:42 PM CDT): Impression: Chronic with good glucose control. Plan: Continue Farxiga Encounters Date Type Department Care Team Description 07/10/2024 8:45 AM PROOF INSPECTOR Office Visit [facility] at [address] [phone] Sammy Rojas MD PVD (peripheral vascular disease) (HCC) (Primary Dx); Primary hypertension; Mixed hyperlipidemia 07/10/2024 Orders Only [facility] at [address] [phone] Sammy Rojas MD Aftercare following surgery of the circulatory system (Primary Dx) 06/04/2024 7:30 AM PROOF INSPECTOR - 06/04/2024 8:30 AM PROOF INSPECTOR Surgery [facility] Cardiac Research Anthropologist [address] [place] [address] Sammy Rojas MD BILATERAL LOWER EXTREMITY ANGIOGRAM WITH POSSIBLE INTERVENTION AND WITH RIGHT GROIN ACCESS 06/04/2024 5:51 AM PROOF INSPECTOR - 06/04/2024 1:59 PM PROOF INSPECTOR Hospital Encounter [facility] Cardiac Research Anthropologist [address] [place] [address] Sammy Rojas MD Atherosclerotic PVD with intermittent claudication (HCC); Other disorder of circulatory system Discharge Disposition: Discharge to home or self care 05/22/2024 9:15 AM PROOF INSPECTOR Office Visit [facility] at [address] [phone] Sammy Rojas MD PVD (peripheral vascular disease) (HCC) (Primary Dx); Primary hypertension; Mixed hyperlipidemia 05/22/2024 Documentation [facility] Vascular and Vein Surgery [address] [place] [address] Haley Jenkins RN 04/24/2024 10:00 AM PROOF INSPECTOR Ancillary Procedure [facility] Surgery at [address] [place] [phone] PVD (peripheral vascular disease) (HCC) from Last [...] on file Legal Sex Female 3:33 AM PROOF INSPECTOR Gender Identity Not on file Sexual Orientation Not on file Obstetrics History Last Filed Vital Signs Vital Sign Reading Time Taken Comments Blood Pressure 134/88 07/10/2024 8:29 AM PROOF INSPECTOR Pulse 84 07/10/2024 8:29 AM PROOF INSPECTOR Temperature 36.9 ??C (98.5 ??F) 06/04/2024 8:50 AM CS T Respiratory Rate 18 06/04/2024 1:40 PM PROOF INSPECTOR Oxygen Saturation 96% 07/10/2024 8:29 AM PROOF INSPECTOR Inhaled Oxygen Concentration - - Weight 107 kg (236 lb) 07/10/2024 8:29 AM PROOF INSPECTOR Height 165.1 cm (5' 5 ) 07/10/2024 8:29 AM PROOF INSPECTOR Body Mass Index 39.27 07/10/2024 8:29 AM PROOF INSPECTOR Plan of Treatment Health Maintenance Due Date [...] GLUCOSE DEVICE Routine 06/04/2024 8 :34 AM PROOF INSPECTOR PERIPHERAL RUN OFF CATH Routine 06/04/2024 7:58 AM PROOF INSPECTOR Atherosclerotic PVD with intermittent claudication (HCC) DIFFERENTIAL AUTO Routine 06/04/2024 7:0 0 AM PROOF INSPECTOR CBC WITH AUTO DIFFERENTIAL Routine 06/04/2024 7:00 AM PROOF INSPECTOR B ABO / RH CONFIRMATION TESTING STAT 06/04/2024 7:00 AM PROOF INSPECTOR EGFR Routine 06/04/2024 6:35 AM PROOF INSPECTOR Atherosclerotic PVD with intermittent claudication (HCC) ANTIBODY SCREEN Timed 06/04/2024 6:35 AM PROOF INSPECTOR Atherosclerotic PVD with intermittent claudication (HCC) ABO/RH Timed 06/04/2024 6:35 AM PROOF INSPECTOR Atherosclerotic PVD with intermittent claudication (HCC) PROTIME-INR Routine 06/04/2024 6:35 AM PROOF INSPECTOR Atherosclerotic PVD with intermittent claudication (HCC) TYPE AND SCREEN Timed 06/04/2024 6:35 AM PROOF INSPECTOR Atherosclerotic PVD with intermittent claudication (HCC) APTT Routine 06/04/2024 6:35 AM PROOF INSPECTOR Atherosclerotic PVD with intermittent claudication (HCC) Other disorder of circulatory system BASIC METABOLIC PANEL Routine 06/04/2024 6:35 AM PROOF INSPECTOR Atherosclerotic PVD with intermittent claudication (HCC) US ARTERIAL DOPPLER LOWER EXTREMITY BILATERAL Schedule Routine, Read Routine (OP Routine) 04/24/2024 10:33 AM PROOF INSPECTOR PVD (peripheral vascular disease) (HCC) from Last 3 Months Results * (ABNORMAL) POCT glucose (06/04/2024 8:34 AM PROOF INSPECTOR) Pathologist [facility] Glucose, POC 227(H) 70 - 199 mg/dL Blood 06/04/2024 8:34 AM PROOF INSPECTOR 06/04/2024 8:34 AM PROOF INSPECTOR Sammy Rojas MD LAB POCT ORDERABLES - DEVICE Fin al Result ZORAN [address] [facility] Department [place] [address] * PERIPHERAL RUN OFF CATH (06/04/2024 7:58 AM PROOF INSPECTOR) Anatomical Region Laterality Modality X-Ray Angiograph y Narrative 06/04/2024 8:02 AM PROOF INSPECTOR Please see OpNote for result. Sammy Rojas MD CV CARDIAC CATH PROCEDURES Final Result * Differential, auto (06/04/2024 7:00 AM PROOF INSPECTOR) Pathologist [facility] Neutrophil abs 5.2 1.5 - 6.5 K/cumm Imm gran abs 0.0 0.0 - 0.1 K/cumm ZORAN Lymphocyte abs 1.5 0.8 - 3.3 K/cumm ZORAN Monocyte abs 0.6 0.2 - 0.8 K/cumm [facility] Eosinophil abs 0.2 0.0 - 0.5 K/cumm [facility] Basophil abs 0.1 0.0 - 0.1 K/cumm [facility] Neutrophil pct 69.1 % [facility] Comment: Interpretive Data Percent cell count reference ranges are not reported, since discordance with absolute values may lead to misinterpretation of CBC data. Current Interpretive Data was last revised on 2017. Imm gran pct 0.1 % [facility] Comment: Interpretive Data Percent cell count reference ranges are not reported, since discordance with absolute values may lead to misinterpretation of CBC data. Current Interpretive Data was last revised on 2017. Lymphocyte pct 20.1 % [facility] Comment: Interpretive Data Percent cell count reference ranges are not reported, since discordance with absolute values may lead to misinterpretation of CBC data. Current Interpretive Data was last revised on 2017. Monocyte pct 7.8 % [facility] Comment: Interpretive Data Percent cell count reference ranges are not reported, since discordance with absolute values may lead to misinterpretation of CBC data. Current Interpretive Data was last revised on 2017. Eosinophil pct 2.1 % [facility] Comment: Interpretive Data Percent cell count reference ranges are not reported, since discordance with absolute values may lead to misinterpretation of CBC data. Current Interpretive Data was last revised on 2017. Basophil pct 0.8 % [facility] Comment: Interpretive Data Percent cell count reference ranges are not reported, since discordance with absolute values may lead to misinterpretation of CBC data. Current Interpretive Data was last revised on 2017. Blood 06/04/2024 7:00 AM PROOF INSPECTOR 06/04/2024 7:02 AM PROOF INSPECTOR us Sammy Rojas MD LAB BLOOD ORDERABLES Final Resul t ZORAN DANIEL [address] [facility] Department [place] [address] * ABO / Rh Confirmation Testing (06/04/2024 7:00 AM PROOF INSPECTOR) ABO/Rh Confirmation A Negative [facility] Blood 06/04/2024 7:00 AM PROOF INSPECTOR 06/04/2024 7:03 AM PROOF INSPECTOR Sammy Rojas MD LAB BLOOD ORDERABLES Final Resul t Performing Organization Address [facility] de Phone Number ZORAN [address] [place] [address] [facility] * CBC with auto differential (06/04/2024 7:00 AM PROOF INSPECTOR) [facility] WBC 7.5 3.8 - 9.9 K/cumm Hgb 13.4 11.9 - 15.5 g/dL [facility] Hct 40.0 35.6 - 45.5 % [facility] Plt 222 150 - 400 K/cumm [facility] MPV 10.6 9.1 - 12.3 fL [facility] RBC 4.54 3.90 - 5.20 M/cumm [facility] MCV 88.1 81.3 - 96.4 fL [facility] MCH 29.5 27.1 - 33.3 pg [facility] MCHC 33.5 32.3 - 35.7 g/dL [facility] RDW CV 12.8 11.1 - 14.9 % [facility] RDW SD 41.2 35.7 - 48.1 fL [facility] NRBC abs 0.00 0.00 - 0.01 K/cumm [facility] Blood 06/04/2024 7:00 AM PROOF INSPECTOR 06/04/2024 7:02 AM PROOF INSPECTOR Sammy Rojas MD LAB BLOOD ORDERABLES Final Resul t Performing Organization Address [facility] de Phone Number ZORAN [address] [facility] [place] [address] * (ABNORMAL) eGFR (06/04/2024 6:35 AM PROOF INSPECTOR) [facility] eGFR 32(L) >=60 mL/min/1. 73 m2 Comment: [...] last reviewed 2021. Blood 06/04/2024 6:35 AM PROOF INSPECTOR 06/04/2024 6:39 AM PROOF INSPECTOR Sammy Rojas MD LAB BLOOD ORDERABLES Final Resul t Performing Organization Address City/[facility] Co de Phone Number [address] [employer] [place] [address] * ABO/Rh (06/04/2024 6:35 AM PROOF INSPECTOR) ABO/Rh A Negative Blood 06/04/2024 6:35 AM PROOF INSPECTOR 06/04/2024 6:39 AM PROOF INSPECTOR Narrative ZORAN - 06/04/2024 7:17 AM PROOF INSPECTOR Has the patient had Daratumumab or Isatuximab in the past 6 months?->Unknown Sammy Rojas MD LAB BLOOD BANK TEST ORDERABLES F inal Result [address] [employer] [place] [address] * aPTT (06/04/2024 6:35 AM PROOF INSPECTOR) aPTT 24 22 - 37 sec Comment: Interpretive data aPTT test has not been evaluated for monitoring heparin therapy. The anti-Xa is the preferred test. Current interpretive data was last revised on 2019. Blood 06/04/2024 6:35 AM PROOF INSPECTOR 06/04/2024 6:39 AM PROOF INSPECTOR Sammy Rojas MD LAB BLOOD ORDERABLES Final Resul t Performing Organization Address [facility] de Phone Number [address] [place] [address] * Protime-INR (06/04/2024 6:35 AM PROOF INSPECTOR) Pathologist [facility] PT 13.8 12.0 - 14.6 sec INR 1.0 0.9 - 1.2 ZORAN Comment: Ref Range High Interpretive data Oral anticoagulant therapeutic ranges: Venous thromboembolism prophylaxis or treatment: 2.0-3.0 CARDIOLOGY Standard range: 2.0-3.0 High-intensity range: 2.5-3.5 Refer to indication-specific guidelines for appropriate target ranges for prosthetic heart valve replacement. Current interpretive data was last revised on 2019. Blood 06/04/2024 6:35 AM PROOF INSPECTOR 06/04/2024 6:39 AM PROOF INSPECTOR Sammy Rojas MD LAB BLOOD ORDERABLES Final Resul t Performing Organization Address City/[facility] Co de Phone Number [address] [place] [address] * Antibody screen (06/04/2024 6:35 AM PROOF INSPECTOR) Pathologist [facility] Goran, indirect, Gel Interpretation Negative ABSC Blood 06/04/2024 6:35 AM PROOF INSPECTOR 06/04/2024 6:39 AM PROOF INSPECTOR Narrative ZORAN - 06/04/2024 7:17 AM PROOF INSPECTOR Has the patient had Daratumumab or Isatuximab in the past 6 months?->Unknown Sammy Rojas MD LAB BLOOD BANK TEST ORDERABLES F inal Result Performing Organization Address City/[facility]/ZIP Co de Phone Number ZORAN [address] [employer] [place] [address] * (ABNORMAL) Basic metabolic panel (06/04/2024 6:35 AM PROOF INSPECTOR) Sodium 136 135 - 145 mmol/L Potassium, pl 3.4 3.3 - 4.9 mmol/L [facility] Comment:Hemolyzed; Potassium value may be falsely elevated by as much as 1.0 mmol/L. Suggest redraw and reanalysis. Chloride 99 97 - 110 mmol/L [facility] CO2 25 22 - 32 mmol/L [facility] Anion gap 12 2 - 15 mmol/L [facility] BUN 22 6 - 25 mg/dL [facility] Creatinine 1.68(H) 0.60 - 1.10 mg/dL [facility] Glucose 277(H) 70 - 199 mg/dL [facility] Comment: Interpretive Data Fasting glucose >/= 126 [...] 2022. Calcium 8.9 8.5 - 10.3 mg/dL [facility] Blood 06/04/2024 6:35 AM PROOF INSPECTOR 06/04/2024 6:39 AM PROOF INSPECTOR Sammy Rojas MD LAB BLOOD ORDERABLES Final Resul t Performing Organization Address City/[facility]/ZIP Co de Phone Number [facility] [address] [facility] [place] [address] * US Arterial Doppler Lower Extremity Bilateral (04/24/2024 10:33 AM PROOF INSPECTOR) Anatomical Region Laterality Modality Vascular Bilateral Ultrasound 04/24/2024 9:38 AM PROOF INSPECTOR Narrative 04/25/2024 1:31 PM PROOF INSPECTOR Vascular & Vein Surgery [address] [place] [address] Lower Extremity Arterial Doppler Report Patient Name: AMADA GUEVARA A : 1950 Study Date: 04/24/2024 9:38:00 AM Gender: F Hourly Shift Manager: Sanjana Pool RVT Location: [facility] Ref Provider: [...] Lt Calf Pressure ? 68 mmHg Rt PILE DRIVING NOZZLEMAN Pressure ?67 mmHg ? Lt PILE DRIVING NOZZLEMAN Pressure ?66 mmHg Rt DPA Pressure ?75 [...] above. Electronically Signed By: Sammy Rojas MD [facility] 2024-04-25 13:31:01 PROOF INSPECTOR Procedure Note Sammy Rojas MD - 04/25/2024 Vascular & Vein Surgery [address] [place] [address]. [place] [address] Lower Extremity Arterial Doppler Report Patient Name: AMADA GUEVARA A : 1950 Study Date: 04/24/2024 9:38:00 AM Gender: F Hourly Shift Manager: Sanjana Pool RVT Location: [facility] Ref Provider: [...] mmHg Lt Calf Pressure 68 mmHg Rt PILE DRIVING NOZZLEMAN Pressure 67 mmHg Lt PILE DRIVING NOZZLEMAN Pressure 66 mmHg Rt DPA Pressure 75 [...] above. Electronically Signed By: Sammy Rojas MD [facility] 2024-04-25 13:31:01 PROOF INSPECTOR Sammy Rojas MD [facility] PROCEDURES Final Result from Last 3 Months Insurance [facility] Advance Directives For more information, please contact: [phone] * Full Code (Latest Code Status on File) Date Activated Date Inactivated Comments 06/04/2024 8:15 AM 06/04/2024 5:59 PM Care Teams Tabber Relationship Specialty Start Date End Date Eric Wen DO [address] [facility] [address] [place], [place] [phone] PCP - General Internal Medicine 04/05/24
--- OUTSIDE RECORDS SUMMARY | 2024-07-17 18:37 | XMS_ITS | Clinical Summary ---
Author Organization [facility] Address [address] [place] [address] Phone Care Team Providers Care Pullman Conductor Name Role Phone Unavailable Primary Care Provider Unavailabl e Social History Tobacco Use Types Packs/Day Years Used Date Smoking Tobacco: Never Assessed Comments Unknown Sex and Gender Information Value Date Recorded Sex Assigned at Not on file Legal Sex Female 1:49 PM [employer] Gender Identity Not on file Sexual Orientation [...]
[2024-07-17] MEDS: SODIUM CHLORIDE 0.9% IV 3,000 ML 999 ML IV CONT (19:05)
[2024-07-17 19:06] VITALS: BP 121/71; PULSE 57; RESP 18; O2SAT 95
[2024-07-17 20:00] VITALS: BP 145/59; PULSE 64; RESP 19; O2SAT 99
--- NOTE | 2024-07-17 20:17 | ED.GENADULT ---
HPI - General Adult General Chief complaint: Recheck/Abnormal Lab/Rx Stated complaint: elevated blood sugar Time Seen by Provider: 07/17/24 17:35 History of Present Illness HPI narrative: This is a 73-year-old female sent in from her primary care physician for elevated blood sugars. Patient ran out of [employer] about a month and half ago and was switched to Jardiance but could not afford it. She has not been taking diabetic medication for the last 6 weeks. Since then she has started having frequent urination as well as some dizziness and lightheadedness. She has no other complaints such as fevers chills chest pain difficulty breathing abdominal pain nausea vomiting or diarrhea. She was seen in her primary care earlier today and had elevated blood sugar was sent to the ED for evaluation. She has been given Jardiance by her PCP. Related Data Home Medications ?Medication ?Instructions ?Recorded ?Confirmed ?Last Taken ?Type multivitamin 1 tablet PO DAILY 08/26/22 07/17/24 Unknown History turmeric root extract 500 mg tablet 500 mg PO DAILY 08/26/22 07/17/24 Unknown History Allergies Allergy/AdvReac Type Severity Reaction Status Date / Time prochlorperazine AdvReac Severe Itching Verified 07/17/24 13:18 [facility] Past Medical History Medical History History of vaginal delivery x3 History of one miscarriage History of stress test (~2021) History of postoperative nausea History of blood transfusion Colon cancer Chronic arthritis BMI 40.0-44.9, adult Anxiety Hypertension Low back pain Surgical History Surgical History History of removal of cyst S/P knee replacement (~2014) Family History Family History Mother Hypertension Acute myocardial infarction, Onset Age: 73 Patient's mother is Sibling Acute myocardial infarction, Onset Age: 58 Patient's brother is Father Patient's father is Other Family history of cardiovascular disease Social History Social History Smoking status: Never smoker Second hand tobacco smoke exposure: No Alcohol intake: never Substance use: never Substance use type: does not use Do You Feel Safe in your Home?: Yes Lack of Transportation: No Lack of Food: Never True Current Housing: I Have Housing Concerned About Future Housing: No Difficulty Paying Gas/Electric Bills: No Difficulty Paying for Meds: No Currently Unemployed: No Education: High School Diploma/GED Difficulty w/ Childcare or Family Care: No Living arrangements: alone Gender identity (if verbalized by the patient): Female Spiritual care concerns: No Exam Narrative: APPEARANCE: No apparent distress. Head: atraumatic. EYES: EOMI, NOSE: Atraumatic NECK: Trachea midline RESPIRATORY: No increased rate of breathing CTAB CARDIOVASCULAR: RRR, no peripheral edema ABDOMINAL: Non-distended soft nontender MUSCULOSKELETAl: No obvious deformities NEURO: Alert. Moving 4/4 extremities SKIN:: Warm, dry. Normal color PSYCHIATRIC: Normal affect Course Vital Signs Vital signs: Vital Signs Temperature 97.7 F 07/17/24 17:39 Pulse Rate 78 07/17/24 17:39 Respiratory Rate 18 07/17/24 17:39 Blood Pressure 141/71 H 07/17/24 17:39 Pulse Oximetry 98 07/17/24 17:39 Oxygen Delivery Room Air 07/17/24 17:39 Temperature 97.7 F 07/17/24 17:39 Pulse Rate 57 L 07/17/24 19:06 Respiratory Rate 18 07/17/24 19:06 Blood Pressure 121/71 07/17/24 19:06 Pulse Oximetry 95 07/17/24 19:06 Oxygen Delivery Room Air 07/17/24 17:39 Medical Decision Making MDM Narrative Medical decision making narrative: -Course: 73-year-old female sent for elevated blood sugars after being out of diabetic medication for over a month. Lab work was obtained. Patient's elevated blood sugars but no evidence of DKA or HHS. She was given 3 L of fluid resuscitation. She is feeling improved. She has her diabetic medication at home. She will be discharged follow-up with her primary care physician. -DDX includes but is not limited to: Elevated glucose of diabetes, DKA/HHS tests infection Vital Signs Vital Signs: Vital Signs Temperature 97.7 F 07/17/24 17:39 Pulse Rate 78 07/17/24 17:39 Respiratory Rate 18 07/17/24 17:39 Blood Pressure 141/71 H 07/17/24 17:39 Pulse Oximetry 98 07/17/24 17:39 Oxygen Delivery Room Air 07/17/24 17:39 Temperature 97.7 F 07/17/24 17:39 Pulse Rate 57 L 07/17/24 19:06 Respiratory Rate 18 07/17/24 19:06 Blood Pressure 121/71 07/17/24 19:06 Pulse Oximetry 95 07/17/24 19:06 Oxygen Delivery Room Air 07/17/24 17:39 Lab Data 07/17/24 17:55 07/17/24 17:55 Labs: Lab Results 07/17/24 07/17/24 07/17/24 Range/Units 17:37 17:55 18:10 WBC 8.0 (4.5-10.0) K/mm3 RBC 4.85 (4.2-5.4) M/mm3 Hgb 14.4 (12.0-15.0) g/dL Hct 41.8 (37.0-47.0) % MCV 86.2 (80-100) fl MCH 29.7 (26-34) pg MCHC 34.4 (32-36) g/dl RDW 13.2 (11.5-14.5) % Plt Count 217 (150-375) k/mm3 MPV 11.5 H (7.4-10.4) fl Immature Gran % (Auto) 0.2 (0-0.5) % Neut % (Auto) 65.9 (45.5-73.1) % Lymph % (Auto) 24.3 (18.3-44.2) % [place] % (Auto) 7.0 (2.6-8.5) % Eos % (Auto) 1.6 (0-4.4) % Baso % (Auto) 1.0 (0.2-1.2) % Lymph # (Auto) 1.95 (0.9-3.2) K/mm3 [place] # (Auto) 0.6 (0.1-0.6) K/mm3 Eos # (Auto) 0.1 (0-0.3) K/mm3 Baso # (Auto) 0.1 (0.0-0.1) K/mm3 Abs Immat Gran (auto) 0.02 (0.00-0.031) K/mm3 Absolute Neuts (auto) 5.3 (1.3-6.7) K/mm3 Absolute Nucleated RBC 0.000 (0.0-0.012) K/mm3 Nucleated RBC % 0.0 (0.0-0.2) % Sodium 127 L (137-145) mmol/L Potassium 3.5 (3.4-5.0) mmol/L Chloride 90 L (98-107) mmol/L Carbon Dioxide 25 (22-30) mmol/L Anion Gap 12 (4-12) mmol/L BUN 21 H (7-17) mg/dL Creatinine 1.66 H (0.7-1.0) mg/dL Estim Creat Clear Calc 33 ml/min Estimated GFR 30 L (59 - ) Glucose 624 H* (65-110) mg/dL POC Capillary Glucose > 500 H* (65-105) mg/dl Calcium 8.5 (8.4-10.2) mg/dL Phosphorus 2.7 (2.5-4.5) mg/dL Magnesium 1.8 (1.6-2.3) mg/dL Total Bilirubin 1.0 (0.2-1.3) mg/dL AST 15 (14-36) U/L ALT 14 (6-35) U/L Alkaline Phosphatase 203 H (38-126) U/L Total Protein 7.0 (6.3-8.2) g/dL Albumin 4.0 (3.5-5.1) g/dL Beta-Hydroxybutyrate/Acetoacetate 0.31 H (0.02-0.27) mmol/L Urine Color Yellow (Yellow) Urine Appearance Clear (Clear) Urine pH 5.0 (5.0-9.0) Ur Specific [place] 1.027 (1.001-1.035) Urine Protein Negative (Negative) mg/dL Urine Glucose (UA) 3+ H (Negative) mg/dL Urine Ketones Negative (Negative) mg/dL Ur Blood (Man) Negative (Negative) Urine Nitrate Negative (Negative) Urine Bilirubin Negative (Negative) Urine Urobilinogen 0.2 (<2.0) mg/dL Leukocyte Esterase Rfl Negative (Negative) QUAN/UL Discharge Plan Discharge Clinical Impression: Blood glucose elevated Patient Disposition: Home, Self-Care Condition: Stable Instructions: Antibiotic Form, Diabetic Hyperglycemia (ED) Additional Instructions: Please take her diabetic medications as instructed. Please follow-up with your primary care physician for further management. If you develop fevers, abdominal pain vomiting or for condition is getting worse return to the ED for re-evaluation. Patient Language: [place] Prescriptions: No Action multivitamin Tablet 1 tablet PO DAILY turmeric root extract 500 mg tablet 500 mg PO DAILY fluticasone propionate [Flonase Allergy Relief] 50 mcg/actuation spray,suspension 2 spray intranasal DAILY Qty: 16 0RF Rx Instructions: administer into each nostril albuterol sulfate 90 mcg/actuation HFA aerosol inhaler 2 puff inhalation Q4-6H PRN (Reason: shortness of breath or wheezing) Qty: 8.5 0RF rosuvastatin 5 mg tablet 5 mg PO DAILY Qty: 90 3RF cyclobenzaprine 10 mg tablet 10 mg PO BID Qty: 30 1RF escitalopram oxalate [Lexapro] 10 mg tablet 10 mg PO DAILY Qty: 90 1RF losartan-hydrochlorothiazide 100-25 mg tablet See Rx Instructions .ROUTE .COMPLEX Qty: 90 2RF Dose Instruction: Take 1 tablet by mouth once daily Rx Instructions: Take 1 tablet by mouth once daily meclizine 25 mg tablet 25 mg PO BID PRN (Reason: dizziness) Qty: 60 1RF pantoprazole 40 mg tablet,delayed release (DR/EC) See Rx Instructions .ROUTE .COMPLEX Qty: 90 2RF Dose Instruction: TAKE 1 TABLET BY MOUTH IN THE MORNING Rx Instructions: TAKE 1 TABLET BY MOUTH IN THE MORNING Jardiance 10 mg tablet 10 mg PO DAILY Qty: 90 2RF zolpidem 10 mg tablet 10 mg PO QHS Qty: 30 1RF Follow-up/Referrals: Eric Wen DO [Primary Care Provider] -
== END 2024-07-17 20:29 | disposition home or self-care (01) ==
PROVIDERS: Emergency Medicine; Emergency Provider Emergency Medicine; PCP Internal Medicine
DX: E11.65 Type 2 diabetes mellitus with hyperglycemia (principal); T38.3X6A Underdosing of insulin and oral hypoglycemic [antidiabetic] drugs, initial encounter; Z91.141 Patient's other noncompliance with medication regimen due to financial hardship; I10 Essential (primary) hypertension; M19.90 Unspecified osteoarthritis, unspecified site; F41.9 Anxiety disorder, unspecified; Z85.038 Personal history of other malignant neoplasm of large intestine; Z96.659 Presence of unspecified artificial knee joint; Z79.84 Long term (current) use of oral hypoglycemic drugs
CPT/HCPCS: 36415; 80053; 81003; 82010; 82948; 83735; 84100; 85025; 96360; 96361; 99283; J7030

== ENCOUNTER 2024-07-26 07:38 | Outpatient (CLI) | payer OTHER, SELFPAY ==
--- NOTE | ~2024-07-26 | MR_ITS ---
EXAMINATION: MR brain/brain stem wo con DATE: 07/26/2024 08:16 INDICATION: Dizziness and giddiness. TECHNIQUE: Magnetic resonance imaging (MRI) of the brain and brainstem was performed without intraven ous contrast. COMPARISON: Brain MRI 05/22/2006, head CT 07/17/2024 FINDINGS: There are scattered areas of nonspecific increased T2-weighted signal intensity in the cere bral white matter. There is no intracranial hemorrhage, acute infarction, or abnormal intracranial ma ss lesion. The ventricles are normal in size. There are likely changes of ocular lens replacement mary geries. The paranasal sinuses are clear. The mastoid air cells are normal. IMPRESSION: 1. Moderate nonspecific cerebral white matter disease, which likely represents chronic small vessel i schemic disease. Reviewed, dictated and finalized at location A. MOTOR REPAIRER IMPRESSION: 1. Moderate nonspecific cerebral white matter disease, which likely represents chronic small vessel ischemic disease.
== END 2024-07-26 07:39 | disposition home or self-care (01) ==
LOC: MICIMG 07:38
PROVIDERS: PCP Internal Medicine; Visit Provider Internal Medicine
DX: R90.82 White matter disease, unspecified (principal)
CPT/HCPCS: 70551

== ENCOUNTER 2024-10-30 09:30 | Outpatient (CLI) | payer OTHER, SELFPAY ==
--- OUTSIDE RECORDS SUMMARY | 2024-10-30 09:40 | XMS_ITS | Clinical Summary ---
Author Organization [facility] [address] Address [address] [place] [id number] Care Team Providers Care Housing Quality Standard Inspector Name Role Phone Eric Wen DO Primary Care Provider [phone] Allergies Active Allergy Reactions Criticality Noted Date [...] 500 mg capsule Take by mouth Active cexwdzky-zph-ymn ic acid-biotin 66.7-1,000 mcg tablet Take by mouth Active Jardiance 10 mg tablet 5 Active Active Problems Problem Noted Date Diagnosed Date Atherosclerotic PVD with intermittent claudicati on 05/22/2024 PVD (peripheral vascular disease) 04/11/2024 Assessment & Plan (07/10/2024 8:46 AM CO FOUNDER AND DIRECTOR): Severe infrapopliteal occlusive disease, recommend 81 mg ASA, we discussed the importance of continuing ambulation and monitoring her feet with her diabetes. Follow up in 1 year with repeat noninvasives testing. Assessment & Plan (05/24/2024 10:29 AM CO FOUNDER AND DIRECTOR): Bilateral extremity severe occlusive disease with life-limiting [...] 04/11/2024 Assessment & Plan (07/10/2024 8:46 AM CO FOUNDER AND DIRECTOR): Stable continue losartan hydrochlorothiazide Assessment & Plan (05/24/2024 10:29 AM CO FOUNDER AND DIRECTOR): Stable continue losartan hydrochlorothiazide Assessment & Plan (04/11/2024 3:42 PM CDT): Impression: Chronic and stable. Plan: Continue Hyzaar Mixed hyperlipidemia 04/11/2024 Assessment & Plan (07/10/2024 8:46 AM CO FOUNDER AND DIRECTOR): Stable continue Crestor Assessment & Plan (05/24/2024 10:29 AM CO FOUNDER AND DIRECTOR): Stable continue Crestor Assessment & Plan (04/11/2024 3:42 PM CDT): Impression: Chronic stable. Plan: Continue rosuvastatin. Type 2 diabetes mellitus wit hout complication, without long-term current use of insulin 04/11/2024 Assessment & Plan (04/11/2024 3:42 PM CDT): Impression: Chronic with good glucose control. Plan: Continue Farxiga Surgical History Surgery Date Site/Laterality Comments REPLACEMENT [...] on file Legal Sex Female 3:33 AM CO FOUNDER AND DIRECTOR Gender Identity Not on file Sexual Orientation Not on file Obstetrics History Last Filed Vital Signs Vital Sign Reading Time Taken Comments Blood Pressure 134/88 07/10/2024 8:29 AM CO FOUNDER AND DIRECTOR Pulse 84 07/10/2024 8:29 AM CO FOUNDER AND DIRECTOR Temperature 36.9 C (98.5 F) 06/04/2024 8:50 AM CO FOUNDER AND DIRECTOR Respiratory Rate 18 06/04/2024 1:40 PM CO FOUNDER AND DIRECTOR Oxygen Saturation 96% 07/10/2024 8:29 AM CO FOUNDER AND DIRECTOR Inhaled Oxygen Concentration - - Weight 107 kg (236 lb) 07/10/2024 8:29 AM CO FOUNDER AND DIRECTOR Height 165.1 cm (5' 5 ) 07/10/2024 8:29 AM CO FOUNDER AND DIRECTOR Body Mass Index 39.27 07/10/2024 8:29 AM CO FOUNDER AND DIRECTOR Plan of Treatment Health Maintenance Due Date [...] Procedure Name Priority Date/Time Associated Diagnosis Comments EGFR Routine 06/04/2024 6:35 AM CO FOUNDER AND DIRECTOR Atherosclerotic PVD with intermittent claudication from Last 3 Months or Most Recently Relevant to Health Maintenance Results * (ABNORMAL) eGFR (06/04/2024 6:35 AM CO FOUNDER AND DIRECTOR) eGFR 32(L) >=60 mL/min/1. 73 m2 Comment: Interpretive Data Reference Interval Normal >/= 90 mL/min/1.73m2 Mildly decreased* 60 - 89 mL/min/1.73m2 Mildly to moderately decreased 45 - 59 mL/min/1.73m2 Moderately to severely decreased 30 - 44 mL/min/1.73m2 Severely decreased 15 - 29 mL/min/1.73m2 Kidney Failure < 15 mL/min/1.73m2 *Relative to young adult level Estimated glomerular [...] last reviewed 2021. Blood 06/04/2024 6:35 AM CO FOUNDER AND DIRECTOR 06/04/2024 6:39 AM CO FOUNDER AND DIRECTOR us Ko Rojas MD LAB BLOOD ORDERABLES Final Resul t [facility] [address] [facility] Department [place] [address] from Last 3 Months or Most Recently Relevant to Health Maintenance Insurance [address] [place] [address] [facility] Advance Directives For more information, please contact: [phone] * Full Code (Latest Code Status on File) Date Activated Date Inactivated Comments 06/04/2024 8:15 AM 06/04/2024 5:59 PM Care Teams Housing Quality Standard Inspector Relationship Specialty Start Date End Date Eric Wen DO [address] [facility] [address] [place] [address] PCP - General Internal Medicine 04/05/24
--- OUTSIDE RECORDS SUMMARY | 2024-10-30 09:40 | XMS_ITS | Clinical Summary ---
Author Organization [facility] Address [address] [place] [address] Phone Care Team Providers Care Rural Mail Carrier Name Role Phone Unavailable Primary Care Provider Unavailabl e Social History Tobacco Use Types Packs/Day Years Used Date Smoking Tobacco: Never Assessed Comments Unknown Sex and Gender Information Value Date Recorded Sex Assigned at Not on file Legal Sex Female 1:49 PM LEAD IOS DEVELOPER Gender Identity Not on file Sexual Orientation Not on file Plan of Treatment Health Maintenance Due Date Last Done Comments DTAP/TDAP/TD VACCINES (1 - Tdap) 1969 BREAST CANCER SCREENING 1990 COLORECTAL SCREENING 11/03/1995 Colorectal Cancer Screening 11/03/1995 FIT-DNA Q 3 years 11/03/1995 FIT/FOBT Q 1 year 11/03/1995 Flex Sig/CT Colonography Q 5 years 11/03/1995 PNEUMOCOCCAL VACCINE 50+ YEARS (1 of 1 - PCV) 11/03/19 ZOSTER VACCINE (1 of 2) 2000 OSTEOPOROSIS SCREENING 11/03/2015 INFLUENZA VACCINE (#1) 2024 RSV VACCINE (60+ or ) (1 - 1-dose 75+ series) 2025
--- OUTSIDE RECORDS SUMMARY | 2024-10-30 09:40 | XMS_ITS | Referral Summary ---
Author Organization [facility] [address] Address [address] [place] [id number] Care Team Providers Care Gathering Machine Feeder Name Role Phone Eric Wen DO Primary Care Provider [phone] Allergies Active Allergy Reactions Criticality Noted Date [...] 500 mg capsule Take by mouth Active ywfjndxs-tld-uzi ic acid-biotin 66.7-1,000 mcg tablet Take by mouth Active Jardiance 10 mg tablet 5 Active Active Problems Problem Noted Date Diagnosed Date Atherosclerotic PVD with intermittent claudicati on 05/22/2024 PVD (peripheral vascular disease) 04/11/2024 Assessment & Plan (07/10/2024 8:46 AM SUPPORT ANALYST): Severe infrapopliteal occlusive disease, recommend 81 mg ASA, we discussed the importance of continuing ambulation and monitoring her feet with her diabetes. Follow up in 1 year with repeat noninvasives testing. Assessment & Plan (05/24/2024 10:29 AM SUPPORT ANALYST): Bilateral extremity severe occlusive disease with life-limiting [...] 04/11/2024 Assessment & Plan (07/10/2024 8:46 AM SUPPORT ANALYST): Stable continue losartan hydrochlorothiazide Assessment & Plan (05/24/2024 10:29 AM SUPPORT ANALYST): Stable continue losartan hydrochlorothiazide Assessment & Plan (04/11/2024 3:42 PM CDT): Impression: Chronic and stable. Plan: Continue Hyzaar Mixed hyperlipidemia 04/11/2024 Assessment & Plan (07/10/2024 8:46 AM SUPPORT ANALYST): Stable continue Crestor Assessment & Plan (05/24/2024 10:29 AM SUPPORT ANALYST): Stable continue Crestor Assessment & Plan (04/11/2024 [...] on file Legal Sex Female 3:33 AM SUPPORT ANALYST Gender Identity Not on file Sexual Orientation Not on file Last Filed Vital Signs Vital Sign Reading Time Taken Comments Blood Pressure 134/88 07/10/2024 8:29 AM SUPPORT ANALYST Pulse 84 07/10/2024 8:29 AM SUPPORT ANALYST Temperature 36.9 C (98.5 F) 06/04/2024 8:50 AM SUPPORT ANALYST Respiratory Rate 18 06/04/2024 1:40 PM SUPPORT ANALYST Oxygen Saturation 96% 07/10/2024 8:29 AM SUPPORT ANALYST Inhaled Oxygen Concentration - - Weight 107 kg (236 lb) 07/10/2024 8:29 AM SUPPORT ANALYST Height 165.1 cm (5' 5 ) 07/10/2024 8:29 AM SUPPORT ANALYST Body Mass Index 39.27 07/10/2024 8:29 AM SUPPORT ANALYST Plan of Treatment Not on file Procedures Procedure Name Priority Date/Time Associated Diagnosis Comments EGFR Routine 06/04/2024 6:35 AM SUPPORT ANALYST Atherosclerotic PVD with intermittent claudication from Last 3 Months or Most Recently Relevant to Health Maintenance Results * (ABNORMAL) eGFR (06/04/2024 6:35 AM SUPPORT ANALYST) eGFR 32(L) >=60 mL/min/1. 73 m2 Comment: [...] last reviewed 2021. Blood 06/04/2024 6:35 AM SUPPORT ANALYST 06/04/2024 6:39 AM SUPPORT ANALYST us Ko Rojas MD LAB BLOOD ORDERABLES Final Resul t [facility] [address] [facility] Department [place] [address] from Last 3 Months or Most Recently Relevant to Health Maintenance Insurance [address] [place] [address] [facility] Advance Directives For more information, please contact: [phone] * Full Code (Latest Code Status on File) Date Activated Date Inactivated Comments 06/04/2024 8:15 AM 06/04/2024 5:59 PM Care Teams Gathering Machine Feeder Relationship Specialty Start Date End Date Eric Wen DO [address] [address] PCP - General Internal Medicine 04/05/24
[2024-10-30 10:42] LABS: Alanine Aminotransferase 13 U/L (6-35); Alkaline Phosphatase 118 U/L (38-126); Anion Gap 10 mmol/L (4-12); Aspartate Amino Transferase 20 U/L (14-36); Bilirubin,Total 0.9 mg/dL (0.2-1.3); Blood Urea Nitrogen 29 mg/dL (7-17); Calcium 8.8 mg/dL (8.4-10.2); Carbon Dioxide 27 mmol/L (22-30); Chloride 106 mmol/L (98-107); Cholesterol 155 mg/dL (0-200); Estimated Glomerular Filt Rate 35; Glucose 100 mg/dL (65-110); HDL Direct 25 mg/dL; LDL Cholesterol Direct 90 mg/dL; Potassium 3.4 mmol/L (3.4-5.0); Sodium 143 mmol/L (137-145); Triglycerides 140 mg/dL (<150)
[2024-10-30 16:35] LABS: Creatinine Urine 119.5 mg/dL
[2024-10-30 16:40] LABS: MALB Creatinine Ratio 12.6 mg/g (0-30); Microalbumin Urine Random 15.1 mg/L (0-16.7)
== END 2024-10-30 09:31 | disposition home or self-care (01) ==
PROVIDERS: PCP Internal Medicine; Visit Provider Internal Medicine
DX: E11.22 Type 2 diabetes mellitus with diabetic chronic kidney disease (principal); I10 Essential (primary) hypertension; E78.5 Hyperlipidemia, unspecified
CPT/HCPCS: 36415; 80053; 80061; 82043; 83036